=== PATIENT | female | born 1965 | race Caucasian/White ===

== ENCOUNTER 2019-04-12 09:44 | Emergency (ER) | payer BC ==
[2019-04-12] MEDS ORDERED: FAMOTIDINE 20 MG/2 ML VIAL IV ONE (10:18)
[2019-04-12] MEDS ORDERED: MORPHINE 4 MG/ML SYR ONE (10:18)
[2019-04-12] MEDS ORDERED: NA CHLORIDE 0.9% 1,000 ML ONE ×2 (10:18→12:02)
[2019-04-12] MEDS ORDERED: ONDANSETRON 4 MG/2 ML VIAL ONE (10:18)
[2019-04-12] MEDS ORDERED: MORPHINE 2 MG/ML SYR ONE (10:20)
[2019-04-12 10:30] LABS: Absolute Lymphocytes (CBC) 0.6 K/uL (0.7-4.9); Basophils % 0.4 % (0-1.3); Hematocrit 34.8 % (36.0-45.0); Lymphocytes % 6.1 % (15.3-44.8); MPV 8.2 fL (7.6-11.3); RBC Red Blood Cell Count 3.85 M/uL (3.86-4.86)
--- NOTE | 2019-04-12 10:35 | RAD REPORT ---
EXAM DESCRIPTION: Kristen Single View04/12/2019 10:07 am CLINICAL HISTORY: Colon cancer COMPARISON: 2014 FINDINGS: Multiple, bilateral pulmonary nodules The heart is normal size. Central venous line in place IMPRESSION: Multiple, bilateral pulmonary nodules probably metastases
[2019-04-12 10:45] LABS: ALT/SGPT 23 U/L (12-78); AST/SGOT 28 U/L (15-37); Albumin 3.5 g/dL (3.4-5.0); Alkaline Phosphatase 178 U/L (45-117); BUN Blood Urea Nitrogen 12 mg/dL (7-18); Bicarbonate 28 mmol/L (21-32); Bilirubin Direct < 0.1 mg/dL (0-0.2); Bilirubin Total 0.3 mg/dL (0.2-1.0); Glucose Level 128 mg/dL (74-106); Lipase 362 U/L (73-393); Magnesium 1.9 mg/dL (1.8-2.4); Potassium 4.2 mmol/L (3.5-5.1); Protein, Total 7.9 g/dL (6.4-8.2); Sodium Level 137 mmol/L (136-145)
[2019-04-12 11:03] LABS: Blood Morphology Comment NOT SEEN (NOT SEEN); Platelet Estimate ADEQ
--- NOTE | 2019-04-12 11:34 | RAD REPORT ---
EXAM DESCRIPTION: CT - Abdomen Pelvis W Contrast - 04/12/2019 11:11 am CLINICAL HISTORY: Abdominal pain. COMPARISON: 2014 TECHNIQUE: Computed axial tomography of the abdomen and pelvis was obtained. 100 cc Isovue-300 is ad ministered intravenously. Oral contrast was given. All CT scans are performed using dose optimization technique as appropriate and may include automated exposure control or mA/KV adjustment according to patient size. FINDINGS: Multiple, bilateral pulmonary nodules varying in size from a few millimeters to 24 millimeters 24 millimeter low to intermediate density lesion medial dome of the liver. Couple of additional subce ntimeter hepatic lesions. The portal vein is patent. The spleen, pancreas, adrenals and left kidney unremarkable. Percutaneous stent has been placed into the right kidney without hydronephrosis. Small left adrenal lesion 10 centimeter partially necrotic mass is present within the right pelvis abutting the uterus. There a re several surrounding enlarged lymph nodes. Of the mass obstructs the right ureter. The mass likely invades the uterus. . Portion of the mass abuts the cervix. Right hemicolectomy. No bowel obstruction. IMPRESSION: 10 centimeter pelvic mass obstructs the right ureter likely recurrent colonic neoplasm. There are enlarged lymph nodes, hepatic and pulmonary metastases
--- NOTE | 2019-04-12 12:16 | ER ---
Nurse's Notes [facility] Name: Selma Balderas Age: 53 yrs Sex: Female : 1965 Arrival Date: 04/12/2019 Time: 09:45 Bed 6 Private MD: Diagnosis: Nausea and vomiting Presentation: 04/12 09:45 Presenting complaint: EMS states: DIFFUSE ABDOMINAL PAIN WITH NAUSEA AND VOMITING SINCE bp LAST PM. Transition of care: patient was not received from another setting of care. Onset of symptoms is unknown. Risk Assessment: Do you want to hurt yourself or someone else? Patient reports no desire to harm self or others. Initial Sepsis Screen: Does the patient meet any 2 criteria? HR > 90 bpm. No. Patient's initial sepsis screen is negative. Does the patient have a suspected source of infection? Yes: Skin breakdown/wound. Care prior to arrival: Medication(s) given: Phenergan, 12.5 mg, TORADOL 30MG IM. 09:45 Method Of Arrival: EMS: [facility] bp 09:45 Acuity: DANIS 3 bp Triage Assessment: 09:48 General: Appears in no apparent distress. uncomfortable, Behavior is cooperative, bp appropriate for age, anxious. Pain: Complains of pain in abdomen. EENT: No deficits noted. Neuro: No deficits noted. Cardiovascular: Rhythm is sinus tachycardia. Respiratory: Airway is patent Respiratory effort is even, unlabored. GI: Abdomen is non-distended, Reports nausea, vomiting. : R FLANK RENAL DRAIN. Derm: No deficits noted. Musculoskeletal: No deficits noted. 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 - Social history:: Smoking status: Patient/guardian denies using tobacco. - Ebola Screening: : No symptoms or risks identified at this time. Screenin:50 Abuse screen: Denies threats or abuse. Denies injuries from another. Nutritional bp screening: No deficits noted. Tuberculosis screening: No symptoms or risk factors identified. Fall Risk None identified. Assessment: 09:50 General: SEE TRIAGE NOTE. 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 bp 12:07 Reassessment: PO CHALLENGE IN PROCESS. bp 12:33 Reassessment: D/C ON HOLD FOR IVF COMPLETION. bp 13:33 Reassessment: PT D/C HOME VIA W/C WITH FAMILY, DX WITH NAUSEA/VOMITING. PORT ACCESS bp LEFT IN PLACE FOR INFUSION THERAPY WITH PROVIDER APPROVAL. Vital Signs: 09:48 BP 116 / 78; Pulse 126; Resp 24; Temp 97.5; Pulse Ox 98% ; Weight 49.9 kg; Height 5 ft. bp 5 in. (165.10 cm); 10:26 BP 116 / 93; Pulse 117; Resp 20; Pulse Ox 95% ; bp 11:06 BP 106 / 55; Pulse 106; Resp 17; Pulse Ox 97% ; bp 11:55 BP 118 / 70; Pulse 107; Resp 16; Pulse Ox 97% ; bp 13:00 BP 120 / 61; Pulse 96; Resp 16; Pulse Ox 96% ; bp 13:35 BP 118 / 72; Pulse 98; Resp 16; Temp 97.5; Pulse Ox 97% ; bp 09:48 Body Mass Index 18.30 (49.90 kg, 165.10 cm) bp ED Course: 09:45 Patient arrived in ED. bp 09:45 Catrachito Mederos PA is PHCP. cp 09:45 Uday James MD is Attending Physician. cp 09:47 Triage completed. bp 09:48 Arm band placed on. bp 09:50 Patient has correct armband on for positive identification. Placed in gown. Bed in low bp position. Call light in reach. Side rails up X2. 09:53 Omid Castillo, KIRK is Primary Nurse. bp 10:06 XRAY Chest (1 view) In Process Unspecified. EDMS 10:10 Accessed Port-a-Cath. using accessed w/ #19 Ren needle, ,sterile technique, per hospital protocol. Clean \T\ dry. Dressing intact. Good blood return. Flushes easily. 11:12 CT Abd/Pelvis - IV Contrast Only In Process Unspecified. EDMS 13:00 Dressings: 4X4s X 1; right flank. bp 13:35 No provider procedures requiring assistance completed. PORT ACCESS IN PLACE FOR bp INFUSION AT ONCOLOGY. Administered Medications: 10:10 Drug: Zofran 4 mg Route: IVP; Site: Port-a-cath; bp 11:42 Follow up: Response: Nausea is decreased bp 10:10 Drug: Pepcid 20 mg Route: IVP; Site: Port-a-cath; bp 11:41 Follow up: Response: Nausea is decreased bp 10:10 Drug: NS 0.9% 1000 ml Route: IV; Rate: 1 bolus; Site: Port-a-cath; bp 13:37 Follow up: IV Status: Completed infusion bp 13:37 Follow up: IV Status: Completed infusion; IV Intake: 1000ml bp 10:10 Drug: morphine 2 mg Route: IVP; Site: Port-a-cath; bp 11:41 Follow up: Response: Pain is decreased bp 12:00 Drug: NS 0.9% 1000 ml Route: IV; Rate: 1 bolus; Site: Port-a-cath; bp 13:37 Follow up: IV Status: Completed infusion; IV Intake: 1000ml bp Intake: 13:37 IV: 1000ml; Total: 1000ml. bp 13:37 IV: 1000ml; Total: 2000ml. bp Outcome: 12:16 Discharge ordered by MD. cp 13:36 Discharged to home via wheelchair, with family. bp 13:36 Condition: stable 13:36 Discharge instructions given to patient, Instructed on discharge instructions, follow up and referral plans. medication usage, Demonstrated understanding of instructions, follow-up care, medications, Prescriptions given X 1. 13:38 Patient left the ED. bp Signatures: Dispatcher [employer] EDMS Catrachito Mederos PA PA cp Peltier, Brian, RN RN bp
--- NOTE | 2019-04-12 12:16 | EDPHYS ---
Physician Documentation [facility] Name: Selma Balderas Age: 53 yrs Sex: Female : 1965 Arrival Date: 04/12/2019 Time: 09:45 Bed 6 Private MD: ED Physician Uday James HPI: 04/12 09:53 This 53 yrs old Female presents to ER via EMS with complaints of Abdominal cp Pain, Nausea/Vomiting. 09:53 The patient presents with abdominal pain. Onset: The symptoms/episode began/occurred cp yesterday. Associated signs and symptoms: Pertinent positives: nausea and vomiting, Pertinent negatives: blood in stools, constipation, diarrhea, fever, vomiting blood. 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 - Social history:: Smoking status: Patient/guardian denies using tobacco. - Ebola Screening: : No symptoms or risks identified at this time. ROS: 09:54 Eyes: Negative for injury, pain, redness, and discharge. cp 09:54 Constitutional: Positive for poor PO intake, Negative for body aches, chills, fever. 09:54 Cardiovascular: Negative for chest pain. 09:54 Respiratory: Negative for cough, shortness of breath, wheezing. 09:54 Abdomen/GI: Positive for abdominal pain, nausea and vomiting, Negative for diarrhea, constipation, dysphagia, hematemesis, black/tarry stool, rectal bleeding. 09:54 Skin: Negative for rash. 09:54 Neuro: Negative for altered mental status, headache, weakness. 09:54 All other systems are negative. Exam: 10:00 Constitutional: The patient appears in no acute distress, alert, awake, non-toxic, well cp developed, well nourished, uncomfortable. 10:00 Head/Face: Normocephalic, atraumatic. cp 10:00 Eyes: Periorbital structures: appear normal, Conjunctiva: normal, no exudate, no cp injection, Sclera: no appreciated abnormality, Lids and lashes: appear normal, bilaterally. 10:00 ENT: External ear(s): are unremarkable, Nose: is normal, Mouth: Lips: dry, Oral mucosa: cp dry, Posterior pharynx: is normal, airway is patent, no erythema, no exudate. 10:00 Chest/axilla: Inspection: normal, Palpation: is normal, no crepitus, no tenderness. 10:00 Cardiovascular: Rate: tachycardic, Rhythm: regular, Edema: is not appreciated, JVD: is not appreciated. 10:00 Respiratory: the patient does not display signs of respiratory distress, Respirations: normal, no use of accessory muscles, no retractions, labored breathing, is not present, Breath sounds: are clear throughout, no decreased breath sounds, no stridor, no wheezing. 10:00 Abdomen/GI: Inspection: scar(s), are noted in the midline, Bowel sounds: active, all quadrants, Palpation: soft, in all quadrants, moderate abdominal tenderness, in the abdomen diffusely, rebound tenderness, is not appreciated, voluntary guarding, is elicited in all quadrants. 10:00 Back: pain, of the right mid back, right kidney nephrostomy tube noted. 10:00 Skin: no rash present. 10:00 Neuro: Orientation: to person, place \T\ time. Mentation: is normal, Motor: moves all fours, strength is normal. Vital Signs: 09:48 BP 116 / 78; Pulse 126; Resp 24; Temp 97.5; Pulse Ox 98% ; Weight 49.9 kg; Height 5 ft. bp 5 in. (165.10 cm); 10:26 BP 116 / 93; Pulse 117; Resp 20; Pulse Ox 95% ; bp 11:06 BP 106 / 55; Pulse 106; Resp 17; Pulse Ox 97% ; bp 11:55 BP 118 / 70; Pulse 107; Resp 16; Pulse Ox 97% ; bp 13:00 BP 120 / 61; Pulse 96; Resp 16; Pulse Ox 96% ; bp 13:35 BP 118 / 72; Pulse 98; Resp 16; Temp 97.5; Pulse Ox 97% ; bp 09:48 Body Mass Index 18.30 (49.90 kg, 165.10 cm) bp MDM: 09:50 Patient medically screened. cp 10:00 Differential diagnosis: bowel obstruction, cholecystitis, Cholelithiasis, gastritis, cp non-specific abd pain, pancreatitis, Ureterolithiasis, dehydration, sepsis. 12:14 Data reviewed: vital signs, nurses notes, lab test result(s), radiologic studies, CT cp scan. Counseling: I had a detailed discussion with the patient and/or guardian regarding: the historical points, exam findings, and any diagnostic results supporting the discharge/admit diagnosis, lab results, radiology results. Response to treatment: the patient's symptoms have markedly improved after treatment, Nausea and pain improved. Vomiting resolved. Patient observed tolerating po fluids and food. Will discharge to home for continued monitoring. 04/12 09:53 Order name: Basic Metabolic Panel; Complete Time: 10:56 cp 04/12 11:02 Interpretation: Normal except: GLUC 128; GFR 59. cp 04/12 09:53 Order name: CBC with Diff; Complete Time: 11:49 cp 04/12 10:33 Interpretation: Normal except: RBC 3.85; HGB 11.4; HCT 34.8; MCV 90.5; MCH 29.7; PLT cp 417; BHAVANI% 86.0; LYM% 6.1; NEUT A 8.6; LYMA 0.6. 04/12 09:53 Order name: Creatinine for Radiology; Complete Time: 10:56 cp 04/12 09:53 Order name: Hepatic Function; Complete Time: 10:56 cp 04/12 11:02 Interpretation: Normal except: ALK 178; GLOB 4.4; A/G 0.8. cp 04/12 09:53 Order name: Lipase; Complete Time: 10:56 cp 04/12 09:53 Order name: Magnesium; Complete Time: 10:56 cp 04/12 09:53 Order name: XRAY Chest (1 view); Complete Time: 10:56 cp 04/12 11:03 Interpretation: Report review. cp 04/12 09:53 Order name: CT Abd/Pelvis - IV Contrast Only; Complete Time: 11:49 cp 04/12 11:02 Order name: Manual Differential; Complete Time: 11:49 EDMS 04/12 11:49 Interpretation: Normal except: SEGS 84; LYM 7. cp 04/12 09:53 Order name: IV Saline Lock; Complete Time: 10:24 cp 04/12 09:53 Order name: Labs collected and sent; Complete Time: 10:24 cp 04/12 11:51 Order name: PO challenge; Complete Time: 12:13 cp Administered Medications: 10:10 Drug: Zofran 4 mg Route: IVP; Site: Port-a-cath; bp 11:42 Follow up: Response: Nausea is decreased bp 10:10 Drug: Pepcid 20 mg Route: IVP; Site: Port-a-cath; bp 11:41 Follow up: Response: Nausea is decreased bp 10:10 Drug: NS 0.9% 1000 ml Route: IV; Rate: 1 bolus; Site: Port-a-cath; bp 13:37 Follow up: IV Status: Completed infusion bp 13:37 Follow up: IV Status: Completed infusion; IV Intake: 1000ml bp 10:10 Drug: morphine 2 mg Route: IVP; Site: Port-a-cath; bp 11:41 Follow up: Response: Pain is decreased bp 12:00 Drug: NS 0.9% 1000 ml Route: IV; Rate: 1 bolus; Site: Port-a-cath; bp 13:37 Follow up: IV Status: Completed infusion; IV Intake: 1000ml bp Disposition: 13:53 Co-signature as Attending Physician, Uday James MD I agree with the assessment and kdr plan of care. Disposition: 04/12/19 12:16 Discharged to Home. Impression: Nausea and vomiting. - Condition is Stable. - Discharge Instructions: Clear Liquid Diet, Adult, Nausea and Vomiting, Adult. - Prescriptions for Zofran 4 mg Oral Tablet - take 1 tablet by ORAL route every 12 hours As needed; 20 tablet. - Medication Reconciliation Form, Thank You Letter, Antibiotic Education, Prescription Opioid Use form. - Follow up: Private Physician; When: 1 - 2 days; Reason: Recheck today's complaints. - Problem is new. - Symptoms have improved. Signatures: Dispatcher [employer] EDWV Uday James MD MD kdr Page, Corey, PA PA cp Omid Castillo, RN RN bp Corrections: (The following items were deleted from the chart) 13:38 12:16 04/12/2019 12:16 Discharged to Home. Impression: Nausea and vomiting. Condition bp is Stable. Forms are Medication Reconciliation Form, Thank You Letter, Antibiotic Education, Prescription Opioid Use. Follow up: Private Physician; When: 1 - 2 days; Reason: Recheck today's complaints. Problem is new. Symptoms have improved. cp
[2019-04-12 13:52] VITALS: TEMP 97.5
[2019-04-12 13:59] VITALS: BP 118/72; O2SAT 97
== END 2019-04-12 13:38 | disposition home or self-care (01) ==
LOC: ER 09:44
DX: R11.2 Nausea with vomiting, unspecified (principal); R10.9 Unspecified abdominal pain; Z85.038 Personal history of other malignant neoplasm of large intestine; Z85.118 Personal history of other malignant neoplasm of bronchus and lung; Z85.528 Personal history of other malignant neoplasm of kidney
CPT/HCPCS: 96361; 85025; 80048; 36415; 83735; 80076; 83690; 74177; 71045; 96375; 96374; 99285; Q9967; J2270; J7030 ×2; J2405

== ENCOUNTER 2019-04-15 16:58 | Emergency (ER) | payer BC ==
--- OUTSIDE RECORDS SUMMARY | 2019-04-15 17:00 | XMS REPORT ---
:1965 [facility] Address [address] [place] [address] Dr. Jaramillo. [address] [place] [id number] Care Team Providers Name Role Phone Unavailable Unavailable Unavailable Problems This patient has no known problems. Allergies, Adverse Reactions, Alerts This patient has no known allergies or adverse reactions. Medications This patient has no known medications.
[2019-04-15] MEDS ORDERED: NA CHLORIDE 0.9% 2,000 ML ONE (17:23)
[2019-04-15] MEDS ORDERED: MORPHINE 4 MG/ML SYR ONE ×2 (17:35→19:08)
[2019-04-15] MEDS ORDERED: ONDANSETRON 4 MG/2 ML VIAL ONE (17:35)
[2019-04-15 17:44] LABS: Absolute Lymphocytes (CBC) 0.8 K/uL (0.7-4.9); Basophils % 0.5 % (0-1.3); Hematocrit 31.7 % (36.0-45.0); Lymphocytes % 11.6 % (15.3-44.8); MPV 8.1 fL (7.6-11.3); RBC Red Blood Cell Count 3.53 M/uL (3.86-4.86)
[2019-04-15 17:52] LABS: Protime INR 1.16
[2019-04-15 18:09] LABS: ALT/SGPT 21 U/L (12-78); AST/SGOT 28 U/L (15-37); Albumin 2.9 g/dL (3.4-5.0); Alkaline Phosphatase 204 U/L (45-117); BUN Blood Urea Nitrogen 8 mg/dL (7-18); Bicarbonate 27 mmol/L (21-32); Bilirubin Direct < 0.1 mg/dL (0-0.2); Bilirubin Total 0.2 mg/dL (0.2-1.0); CKMB Creatine Kinase MB < 1.0 ng/mL (0.3-3.6); Creatine Phosphokinase 79 U/L (26-192); Glucose Level 107 mg/dL (74-106); Lipase 184 U/L (73-393); Potassium 3.5 mmol/L (3.5-5.1); Sodium Level 137 mmol/L (136-145); Troponin (Emerg Dept Use Only) < 0.02 ng/mL (0.0-0.045)
[2019-04-15] MEDS ORDERED: ACETAMINOPHEN 500 MG TAB ONE (18:26)
--- NOTE | 2019-04-15 18:59 | RAD REPORT ---
EXAM DESCRIPTION: CT - Abdomen Pelvis W Contrast - 04/15/2019 6:10 pm CLINICAL HISTORY: abdominal pain, vomiting, fever, history stage IV colon cancer COMPARISON: Abdomen Pelvis W Contrast dated 04/12/2019; CT ABD PELVIS W CONTRAST dated 09/16/2014 TECHNIQUE: Biphasic, helical CT imaging of the abdomen and pelvis was performed following 100 ml non -ionic IV contrast. No oral contrast given. All CT scans are performed using dose optimization technique as appropriate and may include automated exposure control or mA/KV adjustment according to patient size. FINDINGS: Multiple metastatic pulmonary nodules are present similar or appearing even slightly large r than the short interval April 12 study No new liver finding. Spleen and pancreas without acute finding as well. Gallbladder and biliary tree are also without suspicious finding. Gallstones can be occult on CT imaging. Renal function is symmetric. Percutaneous nephrostomy tube is present on the right. No left-sided hyd ronephrosis. No change in positioning of the drain tube. Mild enhancement seen in the right ureter. T his could be infectious/inflammatory change. Tumor invasion is possible. The mass obstructs and proba [place] invades the distal right ureter. No urinary bladder wall thickening. No pyelonephritis or acute p arenchymal process. No new adrenal finding. No new bowel finding seen. No free air or pneumatosis. Again noted is the large 10-12 centimeter partially necrotic mass in the pelvis. Multiple adjacent ly mph nodes are present. Periaortic lymph nodes are present as well. These findings are stable over the short interval. No new bone finding. IMPRESSION: The patient has enlarged 10-12 centimeter bulky partially necrotic pelvic mass along wit h intraperitoneal lymphadenopathy, metastatic lesions to the liver and metastatic lesions to the lung marsh. No bowel obstruction. No clearly new finding over the short interval since April 12. The enhancement of the right ureter i s probably related to tumor. Infection related right ureter enhancement is not excluded.
[2019-04-15] MEDS ORDERED: DIPHENHYDRAMINE 50 MG/ML VIAL ONE (19:07)
[2019-04-15] MEDS ORDERED: METOCLOPRAMIDE 10 MG/2mL INJ ONE (19:08)
--- NOTE | 2019-04-15 19:14 | RAD REPORT ---
EXAM DESCRIPTION: RAD - Chest Single View - 04/15/2019 6:05 pm CLINICAL HISTORY: Sepsis, metastatic colon carcinoma to the lungs COMPARISON: April 12 TECHNIQUE: AP portable chest image was obtained [id number] hours . FINDINGS: Multiple pulmonary nodules are present. Interstitial pattern is present. Findings are not substantially different from comparison. A slightly more shallow inspiration and under penetrated terri hnique accentuate the interstitial pattern. Mild interstitial edema or infiltrate could be masked. Right-sided Port-A-Cath in place. Trachea is midline. Heart and vasculature are normal. No measurable pleural effusion and no pneumothorax. No acute bony abnormality seen. No acute aortic findings suspe cted. IMPRESSION: Multiple pulmonary nodules similar to prior April 12 imaging. Chest is not substantiall y different.
[2019-04-15] MEDS ORDERED: CEFTRIAXONE/SWI 1gm 1 GM/10 ML SYR ONE (19:46)
[2019-04-15 19:57] LABS: Urine Bacteria <20 /HPF (<20); Urine Culture Reflex Order NOT NEEDED; Urine RBC <5 /HPF (NONE SEEN)
[2019-04-15 20:24] LABS: Urine Blood TRACE (NEG); Urine Glucose NEGATIVE (NEG); Urine Protein NEGATIVE (NEG); Urine Specific Gravity 1.015 (1.005-1.030); Urine pH 6.5 (5.0-7.0)
--- NOTE | 2019-04-15 22:15 | EDPHYS ---
Physician Documentation [facility] Name: Selma Balderas Age: 53 yrs Sex: Female : 1965 Arrival Date: 04/15/2019 Time: 16:59 Bed 20 Private MD: ED Physician Collin Louise HPI: 04/15 18:08 This 53 yrs old Female presents to ER via Ambulatory with complaints of jmm Vomiting, Fever, Weakness. 18:08 The patient presents to the emergency department with nausea, vomiting, abdominal pain. jmm Onset: The symptoms/episode began/occurred acutely, 2 day(s) ago. Possible causes: unknown. The symptoms are aggravated by nothing. This is a 53 year old female that presents to the ED with complaints of epigastric abdominal pain, vomiting beginning 2 days ago. Symptoms have now worsened with fever. . 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 - Social history:: Smoking status: Patient/guardian denies using tobacco. - Ebola Screening: : Patient denies exposure to infectious person Patient denies travel to an Ebola-affected area in the 21 days before illness onset. ROS: 18:08 Constitutional: Positive for fever. jmm 18:08 Abdomen/GI: Positive for abdominal pain, nausea and vomiting, Negative for diarrhea. 18:08 All other systems are negative. Exam: 18:08 Constitutional: This is a well developed, well nourished patient who is awake, alert, jmm and in no acute distress. Head/Face: atraumatic. Eyes: EOMI, no conjunctival erythema appreciated ENT: Moist Mucus Membranes Neck: Trachea midline, Supple Chest/axilla: Normal chest wall appearance and motion. Cardiovascular: Regular rate and rhythm. No edema appreciated Respiratory: Normal respirations, no respiratory distress appreciated Abdomen/GI: Non distended, soft Back: Normal ROM Skin: General appearance color normal MS/ Extremity: Moves all extremities, no obvious deformities appreciated, no edema noted to the lower extremities Neuro: Awake and alert, normal gait 18:08 Psych: Behavior is normal, Mood is normal, Patient is cooperative and pleasant 18:08 Abdomen/GI: Inspection: abdomen appears normal, Bowel sounds: normal, Palpation: soft, moderate abdominal tenderness, in the right upper quadrant and left upper quadrant. Vital Signs: 17:10 Weight 55.79 kg (R); Height 5 ft. 5 in. (165.10 cm) (R); rb1 17:21 BP 154 / 94; Pulse 108; Resp 27; Temp 101.5(O); Pain 8/10; ss 18:36 BP 142 / 74; Pulse 98; Resp 12; Temp 100.3(O); Pulse Ox 99% on R/A; mh5 19:30 BP 132 / 61; Pulse 101; Resp 14; Pulse Ox 95% ; wh 20:30 BP 117 / 60; Pulse 85; Resp 17; Pulse Ox 95% on R/A; wh 21:56 BP 115 / 69; Pulse 84; Resp 16; Pulse Ox 95% on R/A; wh 22:44 BP 113 / 60; Pulse 90; Resp 18; Temp 98.8; Pulse Ox 95% on R/A; wh 17:10 Body Mass Index 20.47 (55.79 kg, 165.10 cm) rb1 MDM: 17:24 Patient medically screened. [facility] 22:12 Data reviewed: vital signs, nurses notes. Counseling: I had a detailed discussion with [facility] the patient and/or guardian regarding: the historical points, exam findings, and any diagnostic results supporting the discharge/admit diagnosis, lab results, radiology results, the need for outpatient follow up, to return to the emergency department if symptoms worsen or persist or if there are any questions or concerns that arise at home. ED course: I discussed the patient with Dr. Norman whom will follow up with the patient. Patient is able to tolerate fluids in the ED. Imaging studies negative for an acute process. Patient advised to follow up with pcp or dr norman. Patient otherwise given strict return precautions. Patient understood and agrees with the plan of care. . 04/15 17:16 Order name: Basic Metabolic Panel 04/15 17:16 Order name: Blood Culture Adult (2) 04/15 17:16 Order name: CBC with Diff; Complete Time: 17:51 04/15 17:16 Order name: Ckmb; Complete Time: 18:13 04/15 17:16 Order name: CPK; Complete Time: 18:13 04/15 17:16 Order name: Lactate; Complete Time: 18:13 04/15 17:16 Order name: LFT's; Complete Time: 18:13 04/15 17:16 Order name: Lipase; Complete Time: 18:13 04/15 17:16 Order name: Procalcitonin; Complete Time: 18:32 04/15 17:16 Order name: Protime (+inr); Complete Time: 18:06 04/15 17:16 Order name: Ptt, Activated; Complete Time: 18:06 04/15 17:16 Order name: Troponin (emerg Dept Use Only); Complete Time: 18:13 04/15 17:16 Order name: Urine Microscopic Only; Complete Time: 19:59 04/15 17:16 Order name: Basic Metabolic Panel; Complete Time: 18:13 [facility] 04/15 17:16 Order name: Chest Single View XRAY; Complete Time: 19:21 04/15 17:16 Order name: Accucheck; Complete Time: 17:46 04/15 17:26 Order name: Flu; Complete Time: 19:14 [facility] 04/15 17:26 Order name: CT Abd/Pelvis - IV Contrast Only; Complete Time: 19:14 [facility] 04/15 17:49 Order name: Glucose, Ancillary Testing; Complete Time: 17:51 [facility] 04/15 19:50 Order name: Urine Dipstick--Ancillary (enter results); Complete Time: 20:27 [facility] 04/15 19:50 Order name: Urine --Ancillary (enter results); Complete Time: 20:27 [facility] 04/15 17:16 Order name: Cardiac monitoring; Complete Time: 17:46 04/15 17:16 Order name: EKG - Nurse/Tech; Complete Time: 18:42 04/15 17:16 Order name: IV Saline Lock - Large Bore; Complete Time: 17:46 04/15 17:16 Order name: Labs collected and sent; Complete Time: 17:46 04/15 17:16 Order name: O2 Per Protocol; Complete Time: 17:23 04/15 17:16 Order name: O2 Sat Monitoring; Complete Time: 17:22 04/15 17:16 Order name: Urine Dipstick-Ancillary (obtain specimen); Complete Time: 19:57 04/15 19:16 Order name: Straight Cath - Urine; Complete Time: 19:46 [facility] 04/15 19:59 Order name: PO challenge; Complete Time: 20:25 [facility] Administered Medications: 17:43 Drug: Zofran 4 mg Route: IVP; Site: Port-a-cath; mg2 19:17 Follow up: Response: No adverse reaction rb1 17:44 Drug: morphine 4 mg Route: IVP; Site: Port-a-cath; mg2 19:17 Follow up: Response: No adverse reaction; RASS: Alert and Calm (0) rb1 17:45 Drug: NS 0.9% (30 ml/kg) 30 ml/kg Route: IV; Rate: bolus; Site: Port-a-cath; mg2 19:56 Follow up: Response: No adverse reaction; IV Status: Completed infusion wh 18:26 Drug: Tylenol 1000 mg Route: PO; rb1 18:26 Follow up: Delay in administering the Tylenol due to the pt. vomiting. Waited for the rb1 Zofran to take effect. 19:57 Follow up: Response: No adverse reaction; Temperature is decreased wh 19:13 Drug: morphine 4 mg Route: IVP; Site: Port-a-cath; rb1 19:56 Follow up: Response: No adverse reaction; Pain is decreased; RASS: Alert and Calm (0) 19:15 Drug: Benadryl 12.5 mg Route: IVP; Site: Port-a-cath; rb1 19:55 Follow up: Response: No adverse reaction wh 19:17 Drug: Reglan 10 mg Route: IVP; Site: Port-a-cath; rb1 19:55 Follow up: Response: No adverse reaction; Nausea is decreased wh 19:46 Drug: Rocephin 1 grams Route: IV; Rate: calculated rate; Site: Port-a-cath; wh 22:40 Drug: HEParin Flush 500 units Route: IVP; Site: Port-a-cath; wh 22:41 Follow up: Response: No adverse reaction Disposition: 04/16 07:20 Co-signature as Attending Physician, Collin Louise MD. rn Disposition: 04/15/19 22:15 Discharged to Home. Impression: Vomiting. - Condition is Stable. - Discharge Instructions: Nausea and Vomiting, Adult. - Prescriptions for Zofran ODT 4 mg Oral tablet,disintegrating - place 1 tablet by TRANSLINGUAL route every 4-6 hours; 20 tablet. - Medication Reconciliation Form, Thank You Letter, Antibiotic Education, Prescription Opioid Use form. - Follow up: Private Physician; When: 2 - 3 days; Reason: Recheck today's complaints, Continuance of care, Re-evaluation by your physician. Signatures: Dispatcher [employer] EDMS Negrito Ricketts PA PA jmm Nieto, Roman, MD MD rn Smirch, Shelby, RN RN Selena Smith RN RN [facility] Rossana Lainez Yovani Martínez RN RN [facility] [place] Corrections: (The following items were deleted from the chart) 04/15 22:43 22:15 04/15/2019 22:15 Discharged to Home. Impression: Vomiting. Condition is Stable. wh Forms are Medication Reconciliation Form, Thank You Letter, Antibiotic Education, Prescription Opioid Use. Follow up: Private Physician; When: 2 - 3 days; Reason: Recheck today's complaints, Continuance of care, Re-evaluation by your physician. lesa
--- NOTE | 2019-04-15 22:15 | ER ---
Nurse's Notes [facility] Name: Selma Balderas Age: 53 yrs Sex: Female : 1965 Arrival Date: 04/15/2019 Time: 16:59 Bed 20 Private MD: Diagnosis: Vomiting Presentation: 04/15 17:10 Initial Sepsis Screen: Does the patient have a suspected source of infection? Yes: rb1 Other: Cancer history with fever. 17:16 Presenting complaint: Patient states: Not feeling well since yesterday. N/V and fever ss that began today. Pt has a history of Stage IV colon CA. Is waiting to have second iron infusion prior to beginning chemotherapy. Transition of care: patient was not received from another setting of care. Onset of symptoms was April 14, 2019. Risk Assessment: Do you want to hurt yourself or someone else? Patient reports no desire to harm self or others. Initial Sepsis Screen: Does the patient meet any 2 criteria? RR > 20 per min. Temp <36.0*C (96.8*F)) or > 38.3*C (100.9*F). HR > 90 bpm. Initial Sepsis Screen: Does the patient meet any 2 criteria?. Care prior to arrival: None. 17:16 Method Of Arrival: Ambulatory ss 17:16 Acuity: DANIS 2 ss Triage Assessment: 19:15 Pain: Complains of pain in abdomen Pain does not radiate. Pain currently is 5 out of 10 wh on a pain scale. GI: Abdomen is flat, non-distended, Bowel sounds present X 4 quads. Abd is soft and non tender X 4 quads. 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 - Social history:: Smoking status: Patient/guardian denies using tobacco. - Ebola Screening: : Patient denies exposure to infectious person Patient denies travel to an Ebola-affected area in the 21 days before illness onset. Screenin:10 Abuse screen: Denies threats or abuse. Nutritional screening: No deficits noted. rb1 Tuberculosis screening: No symptoms or risk factors identified. Fall Risk None identified. Assessment: 17:10 General: Appears uncomfortable, Behavior is calm, cooperative, Reports fever for rb1 feeling ill for 1-2 days. Neuro: Level of Consciousness is awake, alert, obeys commands, Oriented to person, place, time, situation. Cardiovascular: Capillary refill < 3 seconds is brisk in bilateral fingers. Respiratory: Airway is patent Respiratory effort is even, unlabored, Respiratory pattern is regular, symmetrical. GI: Abdomen is non-distended, Reports nausea, vomiting, since today. : No signs and/or symptoms were reported regarding the genitourinary system. Derm: Skin is pink, warm \T\ dry. 18:00 Reassessment: Pt. is off the unit for testing. [facility] 18:24 Reassessment: Tried to call lab to come and draw the second cultures but it went to the [facility] outside lab. 18:33 Reassessment: Patient appears in no apparent distress at this time. Patient and/or [facility] family updated on plan of care and expected duration. Pain level reassessed. Patient is alert, oriented x 3, equal unlabored respirations, skin warm/dry/pink. 18:48 Reassessment: Lab is at the pt. bedside to obtain the second set of cultures due to the [facility] pt. being a hard stick. 19:15 Reassessment: Patient appears in no apparent distress at this time. Patient and/or family updated on plan of care and expected duration. Pain level reassessed. Patient is alert, oriented x 3, equal unlabored respirations, skin warm/dry/pink. 20:40 Reassessment: Patient appears in no apparent distress at this time. No changes from previously documented assessment. Patient and/or family updated on plan of care and expected duration. Pain level reassessed. Patient is alert, oriented x 3, equal unlabored respirations, skin warm/dry/pink. Patient states feeling better. Patient states symptoms have improved. 21:56 Reassessment: Patient appears in no apparent distress at this time. No changes from previously documented assessment. Patient and/or family updated on plan of care and expected duration. Pain level reassessed. Patient is alert, oriented x 3, equal unlabored respirations, skin warm/dry/pink. Patient states feeling better. Patient states symptoms have improved. 22:43 Reassessment: Patient appears in no apparent distress at this time. No changes from previously documented assessment. Patient and/or family updated on plan of care and expected duration. Pain level reassessed. Patient is alert, oriented x 3, equal unlabored respirations, skin warm/dry/pink. Patient states feeling better. Patient states symptoms have improved. Vital Signs: 17:10 Weight 55.79 kg (R); Height 5 ft. 5 in. (165.10 cm) (R); rb1 17:21 BP 154 / 94; Pulse 108; Resp 27; Temp 101.5(O); Pain 8/10; ss 18:36 BP 142 / 74; Pulse 98; Resp 12; Temp 100.3(O); Pulse Ox 99% on R/A; mh5 19:30 BP 132 / 61; Pulse 101; Resp 14; Pulse Ox 95% ; wh 20:30 BP 117 / 60; Pulse 85; Resp 17; Pulse Ox 95% on R/A; wh 21:56 BP 115 / 69; Pulse 84; Resp 16; Pulse Ox 95% on R/A; wh 22:44 BP 113 / 60; Pulse 90; Resp 18; Temp 98.8; Pulse Ox 95% on R/A; wh 17:10 Body Mass Index 20.47 (55.79 kg, 165.10 cm) rb1 ED Course: 16:59 Patient arrived in ED. as 17:12 eNgrito iRcketts PA is PHCP. m 17:12 Collin Louise MD is Attending Physician. jmm 17:14 Patient has correct armband on for positive identification. Placed in gown. Bed in low mh5 position. Call light in reach. Side rails up X 1. Adult w/ patient. Pulse ox on. NIBP on. 17:21 Triage completed. ss 17:21 Arm band placed on right wrist. EKG completed in triage. Results shown to MD. ss 17:30 Accessed Port-a-Cath. using accessed w/ # 20 Ren needle, 20G Nexia IV catheter mg2 ,sterile technique, per hospital protocol. Clean \T\ dry. Dressing intact. Good blood return. Flushes easily. 18:05 Chest Single View XRAY In Process Unspecified. EDMS 18:05 Selena Smith, RN is Primary Nurse. rb1 18:10 CT completed. Patient tolerated procedure well. Patient moved back from CT. mw3 18:10 CT Abd/Pelvis - IV Contrast Only In Process Unspecified. EDMS 18:26 Flu Sent. rb1 18:35 EKG done, by ED staff, reviewed by Collin Louise MD. 5 19:15 Patient has correct armband on for positive identification. Placed in gown. Bed in low wh position. Call light in reach. Side rails up X 1. 22:41 No provider procedures requiring assistance completed. IV discontinued, intact, wh bleeding controlled, No redness/swelling at site. Administered Medications: 17:43 Drug: Zofran 4 mg Route: IVP; Site: Port-a-cath; mg2 19:17 Follow up: Response: No adverse reaction rb1 17:44 Drug: morphine 4 mg Route: IVP; Site: Port-a-cath; mg2 19:17 Follow up: Response: No adverse reaction; RASS: Alert and Calm (0) rb1 17:45 Drug: NS 0.9% (30 ml/kg) 30 ml/kg Route: IV; Rate: bolus; Site: Port-a-cath; mg2 19:56 Follow up: Response: No adverse reaction; IV Status: Completed infusion wh 18:26 Drug: Tylenol 1000 mg Route: PO; rb1 18:26 Follow up: Delay in administering the Tylenol due to the pt. vomiting. Waited for the rb1 Zofran to take effect. 19:57 Follow up: Response: No adverse reaction; Temperature is decreased wh 19:13 Drug: morphine 4 mg Route: IVP; Site: Port-a-cath; rb1 19:56 Follow up: Response: No adverse reaction; Pain is decreased; RASS: Alert and Calm (0) wh 19:15 Drug: Benadryl 12.5 mg Route: IVP; Site: Port-a-cath; rb1 19:55 Follow up: Response: No adverse reaction wh 19:17 Drug: Reglan 10 mg Route: IVP; Site: Port-a-cath; rb1 19:55 Follow up: Response: No adverse reaction; Nausea is decreased wh 19:46 Drug: Rocephin 1 grams Route: IV; Rate: calculated rate; Site: Port-a-cath; wh 22:40 Drug: HEParin Flush 500 units Route: IVP; Site: Port-a-cath; wh 22:41 Follow up: Response: No adverse reaction wh Intake: Outcome: 22:15 Discharge ordered by . lesa 22:41 Discharged to home via wheelchair, with family. 22:41 Discharged to home via wheelchair, with family. 22:41 Condition: stable 22:41 Condition: stable 22:41 Discharge instructions given to patient, family, Instructed on discharge instructions, follow up and referral plans. medication usage, POC Demonstrated understanding of instructions, follow-up care, medications, POC Prescriptions given X 1. 22:43 Patient left the ED. Signatures: Dispatcher [employer] EDMS Negrito Ricketts PA PA jmm Martinez, Amelia as Smirch, Shelby, RN RN Selena Smith, RN RN rb1 Jenniffer Wilkerson [facility] Rossana Lainez Yovani Martínez, RN RN mg2 Jodi Hyatt mw3 Corrections: (The following items were deleted from the chart) 18:40 17:46 Accessed Port-a-Cath. using accessed w/ # 20 Ren needle, 20G Nexia IV catheter mg2 ,sterile technique, per hospital protocol. Clean \T\ dry. Dressing intact. Good blood return. Flushes easily. mg2 22:45 22:44 BP 113 / 60; Pulse 90bpm; Resp 18bpm; Pulse Ox 95%; [facility]
[2019-04-15] MEDS ORDERED: HEPARIN 500 UNIT/5 ML SYR IV ONE (22:26)
[2019-04-15 23:05] VITALS: O2SAT 95
[2019-04-15 23:06] VITALS: TEMP 100.3
[2019-04-15 23:10] VITALS: BP 113/60
--- NOTE | 2019-04-17 05:30 | EKG ---
Test Date: 2019-04-15 Test Time: 18:29:11 Director Of Valuation: DIETER MEASUREMENT RESULTS: Intervals: Rate: 97 WA: 138 QRSD: 78 QT: 348 QTc: 441 Mascot: P: 65 WA: 138 QRS: 38 T: 38 INTERPRETIVE STATEMENTS: Normal sinus rhythm Normal ECG Compared to ECG 01/16/2014 10:23:52 No significant changes Electronically Signed On 04-17-19 05:29:28 RADIOLOGIST CHIEF OF BREAST IMAGING by Surjit Tuttle
== END 2019-04-15 22:43 | disposition home or self-care (01) ==
LOC: ER 16:58
DX: R11.2 Nausea with vomiting, unspecified (principal); Z85.41 Personal history of malignant neoplasm of cervix uteri; Z85.118 Personal history of other malignant neoplasm of bronchus and lung; Z85.528 Personal history of other malignant neoplasm of kidney
CPT/HCPCS: 96365; 93005; 87040 ×2; 85025; 80048; 36415; 82550; 81025; 85610; 82947; 80076; 83605; 85730; 84484; 82553; 83690; 84145; 87804 ×2; 74177; 71045; 96375; 99285; 96366; Q9967; J2765; J1200; J1642; J0696; J7030; J2405; 81003; 81015

== ENCOUNTER 2019-05-28 12:24 | Emergency (ER) | payer BC ==
--- OUTSIDE RECORDS SUMMARY | 2019-05-28 12:27 | XMS REPORT ---
:1965 [facility] [address] [place] [address] Dr. Chavis [address] [place] [id number] Care Team Providers Name Role Phone JAIME NISHILOUIS Pavel Unavailable Unavailable Problems This patient has no known problems. Allergies, Adverse Reactions, Alerts This patient has no known allergies or adverse reactions. Medications This patient has no known medications. Results Test Description Test Time Test Comments Text Results Atomic Results Result Comments TISSUE EXAM 2019-04-24 12:26:00 Surgical Pathology Report Case: [id number] Authorizing Provider: Dav Bernard MD Collected: 09/25/2014 1329 Ordering Location: [facility] Received: 09/25/2014 1518 SERVICES Pathologist: Jeanie Rg MD Specimen: Large Intestine, Colon - Right/Ascending, RIGHT COLON AND SMALL BOWEL The addendum is being issued to report the results of PDL1 testing and KRAS and NRAS testing by [facility].Please see scanned report for results.Addendum electronically signed by Sergio Bustillos MD on 04/24/2019 at 12:26 PMThe addendum is being issued to report the results of immunohistochemistry (IHC) testing for Mismatch Repair (MMR) Proteins, which has been performed on the colon cancer at the request of the oncologist, Dr Larson.The diagnosis remains unchanged.IHC testing for all four MMR proteins was performed on selected block A4 with appropriate controls.RESULTSMLH1: Intact nuclear expressionMSH2: Intact nuclear expressionMSH6: Intact nuclear expressionPMS2: Intact nuclear expressionIHC InterpretationNo loss of nuclear expression of MMR proteins: low probability of microsatellite instability-high (MSI-H)# #There are exceptions to the above IHC interpretations. These results should not be considered in isolation, and clinical correlation with genetic counseling is recommended to assess the need for germline testing.Immunohistochemistry disclaimer:The immunohistochemistry test was developed and its performance characteristics determined by [facility], Pathology Laboratory. It has not been cleared or approved by the U.S. Food and Drug Administration. The FDA has determined that such clearance or approval is not necessary. The test is used for clinical purposes. It should not be regarded as investigational or for research. This laboratory is certified under the Clinical Laboratory Improvement Amendments of 1988 (CLIA-88) as qualified to perform high complexity clinical laboratory testing.[id number] electronically signed by Sergio Bustillos MD on 10/05/2016 at 6:20 PMRIGHT/ASCENDING COLON, PORTION OF SMALL BOWEL, EXCISION: COLON: ADENOCARCINOMA WITH INFILTRATION INTO PERICOLONIC ADIPOSE TISSUE METASTATIC CARCINOMA IN ONE OF TWENTY-ONE LYMPH NODES (04/25) EXCISION MARGINS: NEGATIVE FOR CARCINOMA PORTION OF SMALL BOWEL: INTRAMURAL ABSCESS, ORGANIZING FIBROSIS AND SEROSAL FIBROUS ADHESIONS NEGATIVE FOR CARCINOMA SEE DETAILS BELOW The separate portion of small bowel shows intramural abscess and organizing fibrosis, possibly representing an area of perforation. Carcinoma is not identified. Clinical correlation is necessary.COLON AND RECTUM: Resection, Including Transanal Disk Excision of Rectal Neoplasms (Colon Res - All Specimens)SPECIMEN Procedure: Right hemicolectomy Macroscopic Tumor Perforation: Not identifiedTUMOR Histologic Type: Adenocarcinoma Histologic Grade: Low-grade (well differentiated to moderately differentiated) Histologic Features Suggestive of Microsatellite Instability: Intratumoral Lymphocytic Response (tumor-infiltrating lymphocytes): None Peritumor Lymphocytic Response (Crohn-like response): NoneTumor Extent Tumor Size: Greatest dimension in Centimeters (cm): 4 cm Additional Dimension in Centimeters (cm): 3.4 cm Additional Dimension in Centimeters (cm): 1 cm Microscopic Tumor Extension: Tumor invades through the muscularis propria into the subserosal adipose tissue or the nonperitonealized pericolic or perirectal soft tissues but does not extend to the serosal surfaceMARGINS Proximal Margin: Uninvolved by invasive carcinoma Distal Margin: Uninvolved by invasive carcinomaAccessory Findings Lymphovascular Invasion: Present Perineural Invasion: Cannot be determined: Tumor is adjacent to peripheral nerves but not circumferentially surrounding them Tumor Deposits: Not identifiedPATHOLOGIC STAGE CLASSIFICATION (pTNM) Primary Tumor (pT): pT3: Tumor invades through the muscularis propria into pericolorectal tissues Regional Lymph Nodes (pN): pN1a: Metastasis in 1 regional lymph node Number of Lymph Nodes Examined: Specify number: 21 Number of Lymph Nodes Involved: Specify number: 1 Distant Metastasis (pM): Not applicable - pM cannot be determined from the submitted specimen(s)[id number], [id number], [id number] x5, [id number] cancerRight colon and small bowelSpecimen is received in a formalin-filled container labeled with the patient's information and "right colon and small bowel." It consists of a right hemicolectomy and a portion of small bowel. The hemicolectomy has the following components: colon (23 cm length, 6.9 cm circumference), terminal ileum (2 cm length, 2.6 cm circumference), unremarkable appendix (7 cm length, 0.5 cm diameter). A separate, detached portion of small bowel (30 cm length, 4.3 cm circumference) is also present. Its ends are adhesed to one another. The right colon contains a centrally ulcerated mass with heaped up borders (4 x 3.4 x 1 cm) located 6.6 cm from the distal margin and 9.6 cm from the proximal margin. The mass involves the underlying colon wall. There are no additional lesions. The small bowel has no distinct mass lesions. Dissection of adipose tissue reveals multiple lymph nodes (0.2 to 1.5 cm in greatest dimension).Ink code: black-serosa underlying massSection code: A1, hemicolectomy resection margins en face; A2, appendix; A3, margins from detached small bowel en face; A4-A8, full-thickness sections of colon mass; A9, two entire lymph nodes; A10, two lymph nodes bisected (one inked blue); A11, one lymph node trisected; A12, one lymph node trisected (grossly positive lymph node adjacent to mass); A13, six entire lymph nodes; A14, six entire possible lymph nodes; A15, one lymph node trisected; A16-A22, small bowel wall. CG/ew, DB/plImmunohistochemical stains of a focus of atypical cells in serosa of the separate segment of small bowel are as follows: Positive: ck5/6 Negative: MOC31, calretinin, p40 CD31, D2-40 highlight lymphovascular spacesThe above mentioned focus is consistent with reactive mesothelial cells.The focus of metastatic carcinoma in a pericolonic lymph nodes measures 1.4 cm. Extracapsular extension is not identified. The tumor is ulcerated and associated with abscess. It is at 0.15 cm from the serosal surface.The following special studies were performed on this case and the interpretation is incorporated in the diagnostic report above:Block A22 Immunohistochemical stains: MOC31, calretinin, ck5/6, p40, CD31, D2-40The immunohistochemistry test was developed and its performance characteristics determined by [facility], Pathology Laboratory. It has not been cleared or approved by the U.S. Food and Drug Administration. The FDA has determined that such clearance or approval is not necessary. The test is used for clinical purposes. It should not be regarded as investigational or for research. This laboratory is certified under the Clinical Laboratory Improvement Amendments of 1988 (CLIA-88) as qualified to perform high complexity clinical laboratory testing.
--- OUTSIDE RECORDS SUMMARY | 2019-05-28 12:31 | XMS REPORT | Summary of Care ---
:1965 Author Organization [facility] Address [address] [place] [id number] Care Team Providers Name Role Phone Willian Loo MD Primary Care Provider Reason for Referral Other (Routine) Status Reason Specialty Diagnoses / Referred By Referred To Procedures Contact Contact New Request Diagnoses Complicated UTI (urinary tract infection) Andrew Gomez MD Cai, Qiangjun, MD Procedures Discharge Follow-up: Specialty Provider ELIZA SEGOVIA; 4-6 Weeks [address] [address] [address] Phone: [place] [address] Phone: Other (Routine) Status Reason Specialty Diagnoses / Referred By Referred To Contact Procedures Contact New Request Diagnoses Complicated UTI (urinary tract infection) Andrew Gomez MD Alzweri, Laith, MD Procedures Discharge Follow-up: Specialty Provider ELLEN GODDARD; 1 Week [address] [address] [place], [place] Phone: [phone] (Routine) Status Reason Specialty Diagnoses / Referred By Referred To Procedures Contact Contact New Request Diagnoses Complicated UTI (urinary tract infection) Andrew Gomez MD Edemekong, Peter, Procedures Discharge Follow-up: PCP WILLIAN LOO; 2 Weeks [address] [facility] [address] [address] Phone: [place] [address] Phone: Other (Routine) Status Reason Specialty Diagnoses / Referred By Referred To Procedures Contact Contact New Request Diagnoses Complicated UTI (urinary tract infection) Andrew Gomez MD Dhodapkar, Anupama Procedures Discharge Follow-up: Specialty Provider ANGELITA SOTO; 1 Week 301 [place], [place] [address] [address] [place], [place] Phone: [phone] Phone: MRI/CAT Scan (STAT) Status Reason Specialty Diagnoses / Referred By Referred To Procedures Contact Contact New Request Diagnostic Diagnoses Shortness of breath Uday Ivey, Radiology Procedures CT CHEST PULMONARY ANGIOGRAM CT THORAX W CONTRAST ADULT MINISTRIES DIRECTOR[address] [address] MRI/CAT Scan (STAT) Status Reason Specialty Diagnoses / Referred By Referred To Procedures Contact Contact New Request Diagnostic Diagnoses Fever, unspecified fever cause Intractable vomiting with nausea, unspecified vomiting type Generalized abdominal pain Dehydration Uday Ivey, Radiology Procedures CT ABDOMEN PELVIS W CONTRAST ADULT MINISTRIES DIRECTOR [address] [place] [address] Radiology Services (STAT) Status Reason Specialty Diagnoses / Referred By Referred To Procedures Contact Contact New Request Diagnostic Diagnoses Fever, unspecified fever cause Intractable vomiting with nausea, unspecified vomiting type Generalized abdominal pain Dehydration Uday Ivey, Radiology Procedures XR CHEST 1 VW XR CHEST 2 VW ADULT MINISTRIES DIRECTOR [address] [place] [address] Reason for Visit Reason Comments Vomiting Auth/Cert Status Reason Specialty Diagnoses / Referred By Referred To Procedures Contact Contact Emergency Medicine [facility] Emergency Dept [address] [place] [address] [place] [address] Encounter Details Date Type Department Care Team Description 04/16/2019 - [facility] Medicine Uday Ivey FNP [address] [place] [address] Complicated UTI 04/21/2019 Encounter Surgery Unit Bao Carranza MD [address] [place] [address]. [address] [place], [place] [id number] (urinary tract 132 [facility] infection) [place] [address] Allergies Active Allergy Reactions Severity Noted Date Comments Oxaliplatin Anaphylaxis High 03/17/2019 documented as of this encounter (statuses as of 04/21/2019) Medications Medication Sig Dispensed Refills Start Date End Date Status atorvastatin 40 mg Take 1 tablet 90 tablet 3 02/20/2019 Active tabletIndications: by mouth at Mixed hyperlipidemia bedtime. famotidine 20 mg Take 1 tablet 60 tablet 3 03/20/2019 Active tabletIndications: by mouth 2 Intraabdominal mass, (two) times History of colon daily. cancer, Hydronephrosis, unspecified hydronephrosis type lisinopril 10 mg Take 1 tablet 30 tablet 3 03/21/2019 Active tabletIndications: by mouth Intraabdominal mass, daily. History of colon cancer, Hydronephrosis, unspecified hydronephrosis type morphine ER 15 mg 12 Take 1 tablet 90 tablet 0 04/07/2019 Active hr by mouth every tabletIndications: 12 (twelve) Intraabdominal mass, hours. 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 ondansetron 4 mg/5 Take 5 mL by 150 mL 0 04/21/2019 Active mL mouth every 8 solutionIndications: (eight) hours Malignant neoplasm as needed for of colon, Nausea and unspecified part of Vomiting colon (N/V). amoxicillin-clavulan Take 1 tablet 10 tablet 0 04/21/2019 Active ate (AUGMENTIN) by mouth 2 0 875-125 mg per (two) times tabletIndications: daily for 5 Complicated UTI days. (urinary tract infection) acetaminophen-codein Take 1 tablet 120 tablet 0 04/07/2019 Discontinued e 300-30 mg by mouth every 0 tabletIndications: 6 (six) hours Intraabdominal mass, as needed for Hydronephrosis, Pain (scale unspecified 7-10) (cancer hydronephrosis type, related pain). 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 to 2018 intra-abdominal lymph node Mixed hyperlipidemia 02/20/2019 Abnormal liver enzymes 02/20/2019 Menopausal state 02/12/2019 Irritability and anger 02/12/2019 Reactive depression 02/12/2019 Blood pressure elevated without history of HTN 02/12/2019 Encounter to establish care with new doctor 02/12/2019 Need for pneumococcal vaccination 02/12/2019 Malignant tumor of colon 09/21/2014 documented as of this encounter (statuses as of 04/21/2019) Immunizations Name Administration Dates Next Due Pneumococcal Polysaccharide, PPSV23 (PNEUMOVAX) 02/10/2019 documented as of this encounter Social History Tobacco Use Types Packs/Day Years Used Date Never Smoker Smokeless Tobacco: Never Used Alcohol Use Drinks/Week oz/Week Comments Yes Alcohol Habits Answer Date Recorded How often do you have a drink containing alcohol? 2-4 times a month 2018 How many drinks containing alcohol do you have on a Not asked typical day when you are drinking? How often do you have six or more drinks on one Not asked occasion? Sex Assigned at Date Recorded Not on file Job Start Date Occupation Industry Not on file Not on file Not on file Travel History Travel Start Travel End No recent travel history available. documented as of this encounter Last Filed Vital Signs Vital Sign Reading Time Taken Comments Blood Pressure 139/77 04/21/2019 4:00 PM [facility] Pulse 82 04/21/2019 4:00 PM [facility] Temperature 36.7 C (98.1 F) 04/21/2019 12:00 PM [facility] Respiratory Rate 18 04/21/2019 4:00 PM [facility] Oxygen Saturation 94% 04/21/2019 4:00 PM [facility] Inhaled Oxygen Concentration - - Weight 57 kg (125 lb 9.6 oz) 04/17/2019 1:35 AM [facility] Height 162.6 cm (5' 4") 04/17/2019 1:35 AM [facility] Body Mass Index 21.56 04/17/2019 1:35 AM [facility] documented in this encounter Discharge Instructions AttachmentsThe following attachments cannot be sent through Care Everywhere.Vomiting (Adult) (Rwandan)Amoxicillin; Clavulanic Acid tablets ( Rwandan)Tramadol tablets (Rwandan)Ondansetron tablets (Rwandan)documented in this encounter Progress Notes Radha Srinivasan, RD - 04/21/2019 2:25 PM CST MEDICAL NUTRITION THERAPY Progress Note Present on Admission: Complicated UTI (urinary tract infection) Intractable nausea and vomiting Essential hypertension Malignant tumor of colon Mixed hyperlipidemia Medications: Current Facility-Administered Medications: enoxaparin (LOVENOX) injection 40 mg, 40 mg, Subcutaneous, DAILY, Andrew Gomez MD, 40 mg at 04/21/19 0938 ondansetron (ZOFRAN-ODT) disintegrating tablet 4 mg, 4 mg, Oral, Q6HPRN, Andrew Gomez MD, 4 mg at04/21/19 09 pantoprazole (PROTONIX) EC tablet 40 mg, 40 mg, Oral, DAILY, Andrew Gomez MD , 40 mg at 04/21/19 0938 piperacillin-tazobactam (ZOSYN) 3.375 g in NaCl 0.9% (NS) 100 mL MINI-BAG, 3.375 g, IV Piggyback, Q6H ABX, Bao Carranza MD, 3.375 g at 04/21/19 0946 proMETHazine (PHENERGAN) 12.5 mg in NaCl 0.9% (NS) 50 mL IV piggyback, 12.5 mg, IV Piggyback, Q6HPRN, Sherri Mcclelland, ADULT MINISTRIES DIRECTOR, 12.5 mg at 04/20/19 1843 atorvastatin (LIPITOR) tablet 40 mg, 40 mg, Oral, QHS, Bao Carranza MD, 40 mg at 04/20/19 2254 docusate (COLACE) capsule 100 mg, 100 mg, Oral, BID, Bao Carranza MD, 100 mg at 04/21/19 0938 famotidine (PEPCID AC) tablet 20 mg, 20 mg, Oral, BID, Bao Carranza MD, 20 mg at 04/21/19 0938 heparin (1,000 unit/mL, 10 mL vial) for Rebolusing, 3,000 Units, Slow IV Push, FOR REBOLUSING, Uday Ivey, ADULT MINISTRIES DIRECTOR lactobacillus acidophilus (ACIDOPHILLUS) 25 million cell -100 mg captab 1 tablet, 1 tablet, Oral, BID, Bao Carranza MD, 1 tablet at 04/21/19 0938 lisinopril (PRINIVIL,ZESTRIL) tablet 10 mg, 10 mg, Oral, DAILY, Bao Carranza MD, 10 mg at 04/21/19 0941 morpHINE injection 2 mg, 2 mg, Slow IV Push, Q4HPRN, Bao Carranza MD, 2 mg at 04/21/19 0420 morphine IR (MSIR) tablet 15 mg, 15 mg, Oral, Q12H, Bao Carranza MD, 15 mg at 04/21/19 0939 sennosides (SENOKOT) tablet 8.6 mg, 8.6 mg, Oral, BID, Bao Carranza MD, 8.6 mg at 04/20/19 0912 Lab and Medical Test Results: Recent Results (from the past 24 hour(s)) BASIC METABOLIC PANEL (NA, K, CL, CO2, GLUCOSE, BUN, CREATININE, CA) Collection Time: 04/21/19 4:12 AM Result Value Ref Range NA 135 135 - 145 mmol/L K 3.5 3.5 - 5.0 mmol/L CL 100 98 - 108 mmol/L CO2 TOTAL 29 23 - 31 mmol/L AGAP 6 2 - 16 BUN 5 (L) 7 - 23 mg/dL GLUCOSE 93 70 - 110 mg/dL CREATININE 0.49 (L) 0.50 - 1.04 mg/dL CALCIUM 8.5 (L) 8.6 - 10.6 mg/dL eGFR Calculation (Non-) 132.6 mL/min/1.73m2 eGFR Calculation () 160.7 mL/min/1.73m2 PHOSPHORUS Collection Time: 04/21/19 4:12 AM Result Value Ref Range PHOSPHORUS 2.3 (L) 2.5 - 5.0 mg/dL Intake/Output Summary (Last 24 hours) at 04/21/2019 1425 Last data filed at 04/21/2019 0830 Gross per 24 hour Intake 320 ml Output Net 320 ml Weight History: Wt Readings from Last 10 Encounters: 04/17/19 57 kg (125 lb 9.6 oz) 04/07/19 54.9 kg (121 lb 1.6 oz) 03/17/19 60.3 kg (133 lb) 02/24/19 60.6 kg (133 lb 9.6 oz) 02/10/19 60.1 kg (132 lb 9.6 oz) 11/11/17 55.8 kg (123 lb) Current Dietary Order(s): Regular Diet; Texture: Regular. PATIENT FOOD PREFERENCES Nutrition/Additional History: 04/21: Patient reports that she is feeling better and eating better. She reports that she has been eating at least half of all meals. Per EMR patient ate 1/4 of breakfast 04/21. Patient is tolerating diet well. LBM was 04/19. Patient is not willing to try oral nutrition supplements at this time. Will continue to monitor intake & tolerance of diet. Nutrition Interventions: 1. Continue with current medical nutrition therapy 2. Encourage adequate oral intake 3. Monitor oral intake/ tolerance Goals: 1. Patient eats at least 50% or more of meals. Nutrition Monitoring and Evaluation: A registered dietitian will f/u as indicated to report nutrition related information and to revise the recommended nutrition intervention(s). Please call with questions or concerns, thank-you. Anticipated d/c needs: Continue on a regular diet as tolerated. Radha Srinivasan RD, LD Clinical Dietitian Office: [phone] am Awad PTA - 04/20/2019 2:41 PM [facility] Physical Therapy Progress Note: Recommendations: Primary discharge plan: same as prior living situation and home health PT Secondary discharge plan: outpatient PT Equipment recommendations: no device PAIN: reports trunk pain with movement. Did not rate PRECAUTIONS: Weight Bearing Precaution: NA General Precautions: Fall Drain Bracing/Cast present or required:N/A S: Patient agreeable to working with PT. Reports pain with movement. O: Patient met Semi reclined in bed. Patient seen for the following: Bed mobility: - Supine to sit: Modified independent Transfers: Sit to stand: Modified independent using no device Stand to sit: Modified independent using no device Static/dynamic standing balance: Fair+ Gait: Assisted patient with ambulation as follows: 100 feet using no device and SBA/ Setup Patient presenting with Step-through gait pattern Gait is steady with shortened stride length and slowed jeanne. Patient fatigued with 100ft ambulation. No report of dizziness. Good mobility Mod I. After session, patient to BR for drain and then to chair. and call grissom provided. A: Patient tolerated session fair. . P: PT will continue POC with emphasis on gait, transfers and functional mobility. Total Timed Tx Codes in Minutes: 20 Min Total Treatment Time in Minutes: 20 Min Nam Awad PTA Paul Lic [id number] [facility] Rehab Services ADC [phone] Erendira Stanley PT supv Andrew Carter MD - 04/20/2019 1:59 PM CST [facility] Medicine Progress Note Name: Selma Balderas : 1965 Admit Date: 04/16/2019 PCP on file: Willian Loo ASSESSMENT: Selma Balderas is a 53 year old female with PLAN: # Sepsis with no end organ damange # Complicated UTI, recent placed Right PCN in March 2019 in [place] due to hydronephrosis and large pelvic mass, supposed to be exchanged in May 2018 - IV zosyn day 5 - ID following - Blood culture neg. Urine culture: contaminated - Urology/Dr. Goddard following # Abdominal pain, n/v, persistent. Recurrent trips to the ER for the past 2-3 days. Failed outpatient treatment - CT abd/pelvis done, no obstruction - Symptomatic control - Possible related to metastatic disease and/or UTI - Zofran prn - reglan prn #Dyspnea, cough sometimes productive - Likely acute viral bronchitis - Influenza negative, respiratory panel negative - CT chest done showing innumerable lung mets # Elevated troponins, likely type 2 nstemi - echo unremarkable - heparin gtt d/c'd - Cardiology consult Dr. Segovia - Telemetry # low TSH, and normal free T4, likely euthyroid syndrome # Metastatic colon cancer with mets to liver, pelvic mass, lungs b/l, omentum - Follows Dr. Norman oncology - Hx of colon cancer before that was treated with surgery and chemo but lost to follow up in between - family requested transfer to a facility for inpatient chemo. I d/w Dr. Norman over the phone on 04/19. Per Dr. Norman, patient is not currently a candidate for chemo therapy given complicated UTI and uncontrolled nausea and vomiting. Patient and family were updated # Hypertension - Lisinopril 10 mg qd # Hyperlipidemia - Atorvastatin 40 mg qd # hypokalemia, hypophosphatemia - repletion Dispo: home possibly tomorrow VTE Prophylaxis: enoxaparin Code Status: FC Electronically signed by: Andrew Gomez MD SUBJECTIVE/ 24-HOUR HOSPITAL EVENTS: 04/17: pain in abd and back, /10. Intermittent nausea. 04/18: still has pain, but feels better. Last fever 38.1 degree yesterday evening. 04/19: intermittent nausea. Abd pain controlled. 1/16: much better. Nausea improved. Pain controlled. Appetite better. Afebrile. OBJECTIVE: Vital signs range: Temp: [36.1 C (97 F)-37.2 C (99 F)] 37.2 C (99 F) Pulse: [75-87] 78 Resp: [16-18] 18 BP: (122-170)/(70-79) 122/72 Most recent vital signs: BP 122/72 | Pulse 78 | Temp 37.2 C (99 F) (Temporal Artery) | Resp 18 | Ht 1.626 m (5' 4") | Wt 57 kg (125 lb 9.6 oz) | SpO2 94% | BMI 21.56 kg/m I/O: I/O last 3 completed shifts: In: 720 [Oral:720] Out: 450 [Urine:450] PHYSICAL EXAM: General: alert and oriented; no apparent distress HEENT: pupils equal, round, reactive to light; extraocular movements intact; oropharynx clear; moistmucous membranes Neck: supple, no lymphadenopathy, no bruits, no JVD Lungs: clear to auscultation bilaterally Cardio: S1, S2 normal; tachycardia; no murmurs, rubs or gallops Abdomen: soft; mild diffuse tender; non-distended; normoactive bowel sounds : right nephrostomy tube in place Extremities: no clubbing, cyanosis, or edema Skin: no rashes LABS: I reviewed all the relevant patient's new lab test results Recent Results (from the past 24 hour(s)) BASIC METABOLIC PANEL (NA, K, CL, CO2, GLUCOSE, BUN, CREATININE, CA) Collection Time: 04/20/19 4:55 AM Result Value Ref Range NA 137 135 - 145 mmol/L K 3.1 (L) 3.5 - 5.0 mmol/L CL 100 98 - 108 mmol/L CO2 TOTAL 30 23 - 31 mmol/L AGAP 7 2 - 16 BUN 5 (L) 7 - 23 mg/dL GLUCOSE 96 70 - 110 mg/dL CREATININE 0.54 0.50 - 1.04 mg/dL CALCIUM 8.1 (L) 8.6 - 10.6 mg/dL eGFR Calculation (Non-) 118.6 mL/min/1.73m2 eGFR Calculation () 143.7 mL/min/1.73m2 IMAGING: I reviewed all the relevant patient's new radiology test results Hospital Encounter on 04/16/19 CT CHEST PULMONARY ANGIOGRAM Narrative Indication: Chest pain, short of breath Comparison: Chest radiograph dated 04/16/2019 Technique: CTA of the chest was performed following the administration of intravenous contrast material. Three-dimensional reformats were generated following completion of the exam. CT scan was performed according to ALARA (as low as reasonably achievable) policy. Findings: The visualized thyroid gland is within normal limits. There is no thoracic aortic aneurysm or dissection. The heart is normal in size without significant pericardial effusion. No filling defect is appreciated in the pulmonary arteries to the level of the distal segmental arteries. There are multiple enlarged mediastinal and hilar lymph nodes, with subcarinal nodes measuring up to 28 mm, right hilar nodes measuring up to 24 mm and left hilar nodes measuring up to 21 mm. Right internal jugular port catheter terminates in the SVC. There are innumerable pulmonary nodules in the lungs bilaterally with largest in the left upper lobe measuring 24 mm and largest in the right lower lobe measuring 29 mm. There is dependent atelectasis without other superimposed pulmonary process. Bone windows through the chest demonstrate no osseous destructive lesion. Impression Impression: No CTA evidence for pulmonary embolus. Mediastinal lymphadenopathy as above. Innumerable pulmonary nodules in the lungs bilaterally, most consistent with neoplasm. Mild dependent atelectasis in the lungs bilaterally. RL: [id number] AFC: [id number] ABDOMEN PELVIS W CONTRAST Narrative Indication: Nausea and vomiting, generalized abdominal pain COMPARISON: None available TECHNIQUE: Axial images of the abdomen and pelvis are performed following administration of intravenous contrast material. Images were reformatted in the coronal and sagittal plane. CT scan was performed according to ALARA (as low as reasonably achievable) policy. FINDINGS: There are multiple hypoattenuating lesions in the liver, the largest in the medial dome measuring 2.8 cm. The gallbladder, spleen, adrenal glands and pancreas are within normal limits. The left kidney is unremarkable. A right nephrostomy tube is in place, with only mild fullness of the right collecting system. There is some mucosal enhancement in the right proximal ureter. There is no abdominal aortic aneurysm or dissection. There is trace free fluid in the pelvis. There is a large heterogeneously enhancing mass contiguous with the uterus and right ovary, measuring 10.1 x 6.2 x 9.1 cm. There are multiple metastatic implants in the inferior pelvis (series 11, image 139 and in the anterior omentum. The patient is status post partial resection of the proximal colon. There is no bowel obstruction. Bone windows through the abdomen and pelvis demonstrate no osseous destructive lesion. Impression Multiple hypoattenuating lesions in the liver, the largest of which measures 2.8 cm, concerning for hepatic metastatic disease. Right-sided percutaneous nephrostomy tube with only mild fullness of the right collecting system. There is some mild mucosal enhancement in the right proximal ureter, with slightly heterogeneous enhancement of the renal parenchyma. Urinary tract infection would be in the differential. Large heterogeneously enhancing mass contiguous with the uterus and right ovary, measuring 10.1 cm, consistent with neoplasm. Multiple metastatic implants in the pelvis and omentum. Status post partial bowel resection without bowel obstruction or anastomotic leak. RL: 460 AFC: [id number] CHEST 1 VW Narrative Indication: Chest pain Comparison: None available Findings: Single AP view of the chest. The cardiopericardial silhouette is within normal limits. Right internal jugular port catheter is in place, with tip in the distal SVC. There is a large nodule in the medial left lung apex, measuring 22 mm. There are multiple smaller nodules throughout the lungs bilaterally, predominantly in the lower lungs.. The visualized bony thorax is intact. Impression Impression: 22 mm nodule in the medial left lung apex, with multiple smaller nodules throughout the lungs bilaterally, most notably in the lower lobes. Comparison with prior films is recommended to evaluate for interval change. RL: 460 AFC: [id number] CATIONS: I reviewed the current inpatient medications ordered Current Facility-Administered Medications Medication Dose Route Frequency Last Rate Last Dose ondansetron (ZOFRAN-ODT) disintegrating tablet 4 mg 4 mg Oral Q6HPRN 4 mg at 04/19/192019 pantoprazole (PROTONIX) EC tablet 40 mg 40 mg Oral DAILY 40 mg at 0912 piperacillin-tazobactam (ZOSYN) 3.375 g in NaCl 0.9% (NS) 100 mL MINI-BAG 3.375 g IV Piggyback Q6H ABX 3.375 g at 04/20/19 1030 proMETHazine (PHENERGAN) 12.5 mg in NaCl 0.9% (NS) 50 mL IV piggyback 12.5 mg IV Piggyback Q6HPRN 12.5 mg at 04/20/19 0803 atorvastatin (LIPITOR) tablet 40 mg 40 mg Oral QHS 40 mg at 04/19/19 2019 docusate (COLACE) capsule 100 mg 100 mg Oral BID 100 mg at 04/20/19 0912 famotidine (PEPCID AC) tablet 20 mg 20 mg Oral BID 20 mg at 04/20/19 0912 heparin (1,000 unit/mL, 10 mL vial) for Rebolusing 3,000 Units Slow IV Push FOR REBOLUSING lactobacillus acidophilus (ACIDOPHILLUS) 25 million cell -100 mg captab 1 tablet 1 tablet Oral BID 1 tablet at 04/20/19 0912 lisinopril (PRINIVIL,ZESTRIL) tablet 10 mg 10 mg Oral DAILY 10 mg at 0912 morpHINE injection 2 mg 2 mg Slow IV Push Q4HPRN 2 mg at 04/20/19 1036 morphine IR (MSIR) tablet 15 mg 15 mg Oral Q12H 15 mg at 04/20/19 0912 sennosides (SENOKOT) tablet 8.6 mg 8.6 mg Oral BID 8.6 mg at 04/20/19 0912 Andrew Carter MD - 04/19/2019 3:05 PM CST [facility] Progress Note Name: Selma Balderas : 1965 Admit Date: 04/16/2019 PCP on file: Willian Loo ASSESSMENT: Selma Balderas is a 53 year old female with PLAN: # Sepsis with no end organ damange # Complicated UTI, recent placed Right PCN in March 2019 in [place] due to hydronephrosis and large pelvic mass, supposed to be exchanged in May 2018 - IV zosyn day 4 - ID following - d/c IVF - Blood culture neg. Urine culture: contaminated - Urology/Dr. Goddard following # Abdominal pain, n/v, persistent. Recurrent trips to the ER for the past 2-3 days. Failed outpatient treatment - CT abd/pelvis done, no obstruction - Symptomatic control - Possible related to metastatic disease and/or UTI - Zofran prn - reglan prn #Dyspnea, cough sometimes productive - Likely acute viral bronchitis - Influenza negative, respiratory panel negative - CT chest done showing innumerable lung mets # Elevated troponins, likely type 2 nstemi - echo unremarkable - heparin gtt d/c'd - Cardiology consult Dr. Segovia - Telemetry # low TSH, and normal free T4, likely euthyroid syndrome # Metastatic colon cancer with mets to liver, pelvic mass, lungs b/l, omentum - Follows Dr. Norman oncology - Hx of colon cancer before that was treated with surgery and chemo but lost to follow up in between - family requested transfer to a facility for inpatient chemo. I d/w Dr. Norman over the phone. Per Dr. Norman, patient is not currently a candidate for chemo therapy given complicated UTI and uncontrollednausea and vomiting. Patient and family were updated # Hypertension - Lisinopril 10 mg qd # Hyperlipidemia - Atorvastatin 40 mg qd Dispo: home VTE Prophylaxis: enoxaparin Code Status: FC Electronically signed by: Andrew Gomez MD SUBJECTIVE/ 24-HOUR HOSPITAL EVENTS: 04/17: pain in abd and back, 09/12. Intermittent nausea. 04/18: still has pain, but feels better. Last fever 38.1 degree yesterday evening. 04/19: intermittent nausea. Abd pain controlled. OBJECTIVE: Vital signs range: Temp: [36.9 C (98.5 F)-37.2 C (99 F)] 36.9 C (98.5 F) Pulse: [86-92] 92 Resp: [16-18] 16 BP: (129-138)/(66-75) 129/70 Most recent vital signs: BP 129/70 | Pulse 92 | Temp 36.9 C (98.5 F) (Temporal Artery) | Resp 16 | Ht 1.626 m (5' 4") | Wt 57 kg (125 lb 9.6 oz) | SpO2 96% | BMI 21.56 kg/m I/O: I/O last 3 completed shifts: In: 755 [Oral:355; I.V.:400] Out: 950 [Urine:950] PHYSICAL EXAM: General: alert and oriented; no apparent distress HEENT: pupils equal, round, reactive to light; extraocular movements intact; oropharynx clear; moistmucous membranes Neck: supple, no lymphadenopathy, no bruits, no JVD Lungs: clear to auscultation bilaterally Cardio: S1, S2 normal; tachycardia; no murmurs, rubs or gallops Abdomen: soft; mild diffuse tender; non-distended; normoactive bowel sounds : right nephrostomy tube in place Extremities: no clubbing, cyanosis, or edema Skin: no rashes LABS: I reviewed all the relevant patient's new lab test results Recent Results (from the past 24 hour(s)) COMP. METABOLIC PANEL (51652) Collection Time: 04/19/19 4:17 AM Result Value Ref Range NA 134 (L) 135 - 145 mmol/L K 3.1 (L) 3.5 - 5.0 mmol/L CL 101 98 - 108 mmol/L CO2 TOTAL 27 23 - 31 mmol/L AGAP 6 2 - 16 BUN 5 (L) 7 - 23 mg/dL GLUCOSE 87 70 - 110 mg/dL CREATININE 0.47 (L) 0.50 - 1.04 mg/dL TOTAL BILI 0.4 0.1 - 1.1 mg/dL CALCIUM 7.9 (L) 8.6 - 10.6 mg/dL T PROTEIN 5.6 (L) 6.3 - 8.2 g/dL ALBUMIN 2.7 (L) 3.5 - 5.0 g/dL ALK PHOS 263 (H) 34 - 122 U/L ALTv 35 5 - 35 U/L AST(SGOT) 49 (H) 13 - 40 U/L eGFR Calculation (Non-) 139.2 mL/min/1.73m2 eGFR Calculation () 168.7 mL/min/1.73m2 TROPONIN I Collection Time: 04/19/19 4:17 AM Result Value Ref Range TROPONIN I 0.052 (H) <=0.034 ng/mL CBC WITH DIFFERENTIAL Collection Time: 04/19/19 4:17 AM Result Value Ref Range WBC 7.22 4.30 - 11.10 10*3/L RBC 2.81 (L) 3.93 - 5.25 10*6/L HGB 8.2 (L) 11.6 - 15.0 g/dL HCT 25.7 (L) 35.7 - 45.2 % MCV 91.5 80.6 - 95.5 fL MCH 29.2 25.9 - 32.8 pg MCHC 31.9 31.6 - 35.1 g/dL RDW-SD 44.6 39.0 - 49.9 fL RDW-CV 13.4 12.0 - 15.5 % PLT 342 166 - 358 10*3/L MPV 10.3 9.5 - 12.9 fL NRBC/100 WBC 0.0 0.0 - 10.0 /100 WBCs NRBC x10^3 <0.01 10*3/L GRAN MAT (NEUT) % 72.4 % IMM GRAN % 1.10 % LYMPH % 17.9 % MONO % 7.6 % EOS % 0.7 % BASO % 0.3 % GRAN MAT x10^3(ANC) 5.23 1.88 - 7.09 10*3/uL IMM GRAN x10^3 0.08 (H) 0.00 - 0.06 10*3/uL LYMPH x10^3 1.29 (L) 1.32 - 3.29 10*3/uL MONO x10^3 0.55 0.33 - 0.92 10*3/uL EOS x10^3 0.05 0.03 - 0.39 10*3/uL BASO x10^3 <0.03 0.01 - 0.07 10*3/uL IMAGING: I reviewed all the relevant patient's new radiology test results Hospital Encounter on 04/16/19 CT CHEST PULMONARY ANGIOGRAM Narrative Indication: Chest pain, short of breath Comparison: Chest radiograph dated 04/16/2019 Technique: CTA of the chest was performed following the administration of intravenous contrast material. Three-dimensional reformats were generated following completion of the exam. CT scan was performed according to ALARA (as low as reasonably achievable) policy. Findings: The visualized thyroid gland is within normal limits. There is no thoracic aortic aneurysm or dissection. The heart is normal in size without significant pericardial effusion. No filling defect is appreciated in the pulmonary arteries to the level of the distal segmental arteries. There are multiple enlarged mediastinal and hilar lymph nodes, with subcarinal nodes measuring up to 28 mm, right hilar nodes measuring up to 24 mm and left hilar nodes measuring up to 21 mm. Right internal jugular port catheter terminates in the SVC. There are innumerable pulmonary nodules in the lungs bilaterally with largest in the left upper lobe measuring 24 mm and largest in the right lower lobe measuring 29 mm. There is dependent atelectasis without other superimposed pulmonary process. Bone windows through the chest demonstrate no osseous destructive lesion. Impression Impression: No CTA evidence for pulmonary embolus. Mediastinal lymphadenopathy as above. Innumerable pulmonary nodules in the lungs bilaterally, most consistent with neoplasm. Mild dependent atelectasis in the lungs bilaterally. RL: [id number] AFC: [id number] ABDOMEN PELVIS W CONTRAST Narrative Indication: Nausea and vomiting, generalized abdominal pain COMPARISON: None available TECHNIQUE: Axial images of the abdomen and pelvis are performed following administration of intravenous contrast material. Images were reformatted in the coronal and sagittal plane. CT scan was performed according to ALARA (as low as reasonably achievable) policy. FINDINGS: There are multiple hypoattenuating lesions in the liver, the largest in the medial dome measuring 2.8 cm. The gallbladder, spleen, adrenal glands and pancreas are within normal limits. The left kidney is unremarkable. A right nephrostomy tube is in place, with only mild fullness of the right collecting system. There is some mucosal enhancement in the right proximal ureter. There is no abdominal aortic aneurysm or dissection. There is trace free fluid in the pelvis. There is a large heterogeneously enhancing mass contiguous with the uterus and right ovary, measuring 10.1 x 6.2 x 9.1 cm. There are multiple metastatic implants in the inferior pelvis (series 11, image 139 and in the anterior omentum. The patient is status post partial resection of the proximal colon. There is no bowel obstruction. Bone windows through the abdomen and pelvis demonstrate no osseous destructive lesion. Impression Multiple hypoattenuating lesions in the liver, the largest of which measures 2.8 cm, concerning for hepatic metastatic disease. Right-sided percutaneous nephrostomy tube with only mild fullness of the right collecting system. There is some mild mucosal enhancement in the right proximal ureter, with slightly heterogeneous enhancement of the renal parenchyma. Urinary tract infection would be in the differential. Large heterogeneously enhancing mass contiguous with the uterus and right ovary, measuring 10.1 cm, consistent with neoplasm. Multiple metastatic implants in the pelvis and omentum. Status post partial bowel resection without bowel obstruction or anastomotic leak. RL: 460 AFC: [id number] CHEST 1 VW Narrative Indication: Chest pain Comparison: None available Findings: Single AP view of the chest. The cardiopericardial silhouette is within normal limits. Right internal jugular port catheter is in place, with tip in the distal SVC. There is a large nodule in the medial left lung apex, measuring 22 mm. There are multiple smaller nodules throughout the lungs bilaterally, predominantly in the lower lungs.. The visualized bony thorax is intact. Impression Impression: 22 mm nodule in the medial left lung apex, with multiple smaller nodules throughout the lungs bilaterally, most notably in the lower lobes. Comparison with prior films is recommended to evaluate for interval change. RL: 460 AFC: [id number] CATIONS: I reviewed the current inpatient medications ordered Current Facility-Administered Medications Medication Dose Route Frequency Last Rate Last Dose ondansetron (ZOFRAN-ODT) disintegrating tablet 4 mg 4 mg Oral Q6HPRN pantoprazole (PROTONIX) EC tablet 40 mg 40 mg Oral DAILY 40 mg at 1240 NaCl 0.9% (NS) IV infusion 1,000 mL 1,000 mL IV Infusion CONTINUOUS 100 mL/ hr at 04/19/19 0152 1,000 mL at 04/19/19 0152 piperacillin-tazobactam (ZOSYN) 3.375 g in NaCl 0.9% (NS) 100 mL MINI-BAG 3.375 g IV Piggyback Q6H ABX 3.375 g at 04/19/19 1032 proMETHazine (PHENERGAN) 12.5 mg in NaCl 0.9% (NS) 50 mL IV piggyback 12.5 mg IV Piggyback Q6HPRN 12.5 mg at 04/19/19 0829 atorvastatin (LIPITOR) tablet 40 mg 40 mg Oral QHS 40 mg at 04/18/192012 docusate (COLACE) capsule 100 mg 100 mg Oral BID 100 mg at 04/18/192012 famotidine (PEPCID AC) tablet 20 mg 20 mg Oral BID 20 mg at 04/19/19 0828 heparin (1,000 unit/mL, 10 mL vial) for Rebolusing 3,000 Units Slow IV Push FOR REBOLUSING lactobacillus acidophilus (ACIDOPHILLUS) 25 million cell -100 mg captab 1 tablet 1 tablet Oral BID 1 tablet at 04/19/19 0828 lisinopril (PRINIVIL,ZESTRIL) tablet 10 mg 10 mg Oral DAILY 10 mg at 0829 morpHINE injection 2 mg 2 mg Slow IV Push Q4HPRN 2 mg at 04/19/19 1248 morphine IR (MSIR) tablet 15 mg 15 mg Oral Q12H 15 mg at 04/19/19 0828 sennosides (SENOKOT) tablet 8.6 mg 8.6 mg Oral BID 8.6 mg at 04/18/192012 ayron Chirinos MD - 04/19/2019 1:37 PM CST Patient laying in bed feeling much better today denies any headache nausea vomiting chest pain abdominal pain constipation diarrhea Vitals: 04/18/19 2313 04/19/19 0325 04/19/19 0700 04/19/19 1200 BP: 129/68 132/66 134/75 129/70 Pulse: 86 88 90 92 Resp: 17 17 18 18 Temp: 37.1 C (98.7 F) 37.2 C (99 F) 37.1 C (98.7 F) 36.9 C (98.5 F) TempSrc: Oral Oral Temporal Artery Temporal Artery SpO2: 94% 95% 95% 96% Weight: Height: Lungs clear to auscultation Heart S1-S2 regular Abdomen: Soft, bowel sound present Extremity: No edema CBC WBC (10*3/L) Date Value 04/19/2019 7.22 RBC (10*6/L) Date Value 04/19/2019 2.81 (L) PLT (10*3/L) Date Value 04/19/2019 342 HGB (g/dL) Date Value 04/19/2019 8.2 (L) HCT (%) Date Value 04/19/2019 25.7 (L) CMP NA (mmol/L) Date Value 04/19/2019 134 (L) K (mmol/L) Date Value 04/19/2019 3.1 (L) CALCIUM (mg/dL) Date Value 04/19/2019 7.9 (L) CL (mmol/L) Date Value 04/19/2019 101 BUN (mg/dL) Date Value 04/19/2019 5 (L) CREATININE (mg/dL) Date Value 04/19/2019 0.47 (L) GLUCOSE (mg/dL) Date Value 04/19/2019 87 CO2 TOTAL (mmol/L) Date Value 04/19/2019 27 ALBUMIN (g/dL) Date Value 04/19/2019 2.7 (L) T PROTEIN (g/dL) Date Value 04/19/2019 5.6 (L) TOTAL BILI (mg/dL) Date Value 04/19/2019 0.4 BILI UNCON (mg/dL) Date Value 03/14/2019 0.2 BILI CONJ (mg/dL) Date Value 03/14/2019 0.0 ALT(SGPT) (U/L) Date Value 11/11/2017 26 ALTv (U/L) Date Value 04/19/2019 35 AST(SGOT) (U/L) Date Value 04/19/2019 49 (H) ALK PHOS (U/L) Date Value 04/19/2019 263 (H) Blood cultures negative Assessment and plan Sepsis improving Ureter tract infection Abdominal pain is improving with nausea vomiting subsiding Continue antibiotic for 5-7 days can be switched to oral on discharge Andrew Carter MD - 04/18/2019 6:48 PM CST Hospital Medicine Progress Note Name: Selma Balderas : 1965 Admit Date: 04/16/2019 PCP on file: Willian Loo ASSESSMENT: Selma Balderas is a 53 year old female with PLAN: # Sepsis with no end organ damange # Complicated UTI, recent placed Right PCN in March 2019 in [place] due to hydronephrosis and large pelvic mass, supposed to be exchanged in May 2018 - IV zosyn day 3 - IVF - F/u urine and blood cultures - Urology/Dr. Goddard following. PCN tube change if no improvement per Urology # Abdominal pain, n/v, persistent. Recurrent trips to the ER for the past 2-3 days. Failed outpatient treatment - CT abd/pelvis done, no obstruction - Symptomatic control - Possible related to metastatic disease and/or UTI - Zofran prn - reglan prn #Dyspnea, cough sometimes productive - Likely acute viral bronchitis - Influenza negative, respiratory panel negative - CT chest done showing innumerable lung mets # Elevated troponins, likely type 2 nstemi - echo unremarkable - heparin gtt d/c'd yesterday evening - Cardiology consult Dr. Segovia - Telemetry # low TSH, and normal free T4, likely euthyroid syndrome # Metastatic colon cancer with mets to liver, pelvic mass, lungs b/l, omentum - Follows Dr. Norman oncology - Plan is to start chemo this week - Hx of colon cancer before that was treated with surgery and chemo but lost to follow up in between # Hypertension - Lisinopril 10 mg qd # Hyperlipidemia - Atorvastatin 40 mg qd Dispo: home VTE Prophylaxis: enoxaparin Code Status: FC Electronically signed by: Andrew Gomez MD SUBJECTIVE/ 24-HOUR HOSPITAL EVENTS: 04/17: pain in abd and back, /10. Intermittent nausea. 04/18: still has pain, but feels better. Last fever 38.1 degree yesterday evening. OBJECTIVE: Vital signs range: Temp: [36.6 C (97.9 F)-37.5 C (99.5 F)] 37 C (98.6 F) Pulse: [61-102] 89 Resp: [16-19] 18 BP: (121-150)/(54-78) 138/71 Most recent vital signs: BP 138/71 | Pulse 89 | Temp 37 C (98.6 F) (Oral) | Resp 18 | Ht 1.626 m (5' 4") | Wt 57 kg (125 lb 9.6 oz) | SpO2 98% | BMI 21.56 kg/m I/O: I/O last 3 completed shifts: In: 665 [Oral:240; I.V.:425] Out: 900 [Urine:900] PHYSICAL EXAM: General: alert and oriented; no apparent distress HEENT: pupils equal, round, reactive to light; extraocular movements intact; oropharynx clear; moistmucous membranes Neck: supple, no lymphadenopathy, no bruits, no JVD Lungs: clear to auscultation bilaterally Cardio: S1, S2 normal; tachycardia; no murmurs, rubs or gallops Abdomen: soft; mild diffuse tender; non-distended; normoactive bowel sounds : right nephrostomy tube in place Extremities: no clubbing, cyanosis, or edema Skin: no rashes LABS: I reviewed all the relevant patient's new lab test results Recent Results (from the past 24 hour(s)) aPTT Collection Time: 04/18/19 4:16 AM Result Value Ref Range APTT Patient 40 (H) 23 - 38 Seconds MAGNESIUM Collection Time: 04/18/19 4:16 AM Result Value Ref Range MAGNESIUM 1.9 1.7 - 2.4 mg/dL CBC WITH DIFFERENTIAL Collection Time: 04/18/19 4:16 AM Result Value Ref Range WBC 9.21 4.30 - 11.10 10*3/L RBC 2.86 (L) 3.93 - 5.25 10*6/L HGB 8.3 (L) 11.6 - 15.0 g/dL HCT 26.4 (L) 35.7 - 45.2 % MCV 92.3 80.6 - 95.5 fL MCH 29.0 25.9 - 32.8 pg MCHC 31.4 (L) 31.6 - 35.1 g/dL RDW-SD 46.1 39.0 - 49.9 fL RDW-CV 13.6 12.0 - 15.5 % PLT 280 166 - 358 10*3/L MPV 10.3 9.5 - 12.9 fL NRBC/100 WBC 0.0 0.0 - 10.0 /100 WBCs NRBC x10^3 <0.01 10*3/L GRAN MAT (NEUT) % 74.5 % IMM GRAN % 1.00 % LYMPH % 13.8 % MONO % 10.3 % EOS % 0.1 % BASO % 0.3 % GRAN MAT x10^3(ANC) 6.86 1.88 - 7.09 10*3/uL IMM GRAN x10^3 0.09 (H) 0.00 - 0.06 10*3/uL LYMPH x10^3 1.27 (L) 1.32 - 3.29 10*3/uL MONO x10^3 0.95 (H) 0.33 - 0.92 10*3/uL EOS x10^3 <0.03 (L) 0.03 - 0.39 10*3/uL BASO x10^3 0.03 0.01 - 0.07 10*3/uL COMP. METABOLIC PANEL ([id number]) Collection Time: 04/18/19 4:16 AM Result Value Ref Range NA 135 135 - 145 mmol/L K 3.6 3.5 - 5.0 mmol/L CL 105 98 - 108 mmol/L CO2 TOTAL 22 (L) 23 - 31 mmol/L AGAP 8 2 - 16 BUN 8 7 - 23 mg/dL GLUCOSE 94 70 - 110 mg/dL CREATININE 0.60 0.50 - 1.04 mg/dL TOTAL BILI 0.3 0.1 - 1.1 mg/dL CALCIUM 8.1 (L) 8.6 - 10.6 mg/dL T PROTEIN 5.8 (L) 6.3 - 8.2 g/dL ALBUMIN 2.9 (L) 3.5 - 5.0 g/dL ALK PHOS 287 (H) 34 - 122 U/L ALTv 41 (H) 5 - 35 U/L AST(SGOT) 56 (H) 13 - 40 U/L eGFR Calculation (Non-) 105.0 mL/min/1.73m2 eGFR Calculation () 127.2 mL/min/1.73m2 TROPONIN I Collection Time: 04/18/19 4:16 AM Result Value Ref Range TROPONIN I 0.097 (H) <=0.034 ng/mL N-TERMINAL PRO-BNP Collection Time: 04/18/19 4:16 AM Result Value Ref Range NT-proBNP 2,860 (H) <=125 pg/mL PHOSPHORUS Collection Time: 04/18/19 4:16 AM Result Value Ref Range PHOSPHORUS 1.7 (L) 2.5 - 5.0 mg/dL IMAGING: I reviewed all the relevant patient's new radiology test results Hospital Encounter on 04/16/19 CT CHEST PULMONARY ANGIOGRAM Narrative Indication: Chest pain, short of breath Comparison: Chest radiograph dated 04/16/2019 Technique: CTA of the chest was performed following the administration of intravenous contrast material. Three-dimensional reformats were generated following completion of the exam. CT scan was performed according to ALARA (as low as reasonably achievable) policy. Findings: The visualized thyroid gland is within normal limits. There is no thoracic aortic aneurysm or dissection. The heart is normal in size without significant pericardial effusion. No filling defect is appreciated in the pulmonary arteries to the level of the distal segmental arteries. There are multiple enlarged mediastinal and hilar lymph nodes, with subcarinal nodes measuring up to 28 mm, right hilar nodes measuring up to 24 mm and left hilar nodes measuring up to 21 mm. Right internal jugular port catheter terminates in the SVC. There are innumerable pulmonary nodules in the lungs bilaterally with largest in the left upper lobe measuring 24 mm and largest in the right lower lobe measuring 29 mm. There is dependent atelectasis without other superimposed pulmonary process. Bone windows through the chest demonstrate no osseous destructive lesion. Impression Impression: No CTA evidence for pulmonary embolus. Mediastinal lymphadenopathy as above. Innumerable pulmonary nodules in the lungs bilaterally, most consistent with neoplasm. Mild dependent atelectasis in the lungs bilaterally. RL: [id number] AFC: [id number] ABDOMEN PELVIS W CONTRAST Narrative Indication: Nausea and vomiting, generalized abdominal pain COMPARISON: None available TECHNIQUE: Axial images of the abdomen and pelvis are performed following administration of intravenous contrast material. Images were reformatted in the coronal and sagittal plane. CT scan was performed according to ALARA (as low as reasonably achievable) policy. FINDINGS: There are multiple hypoattenuating lesions in the liver, the largest in the medial dome measuring 2.8 cm. The gallbladder, spleen, adrenal glands and pancreas are within normal limits. The left kidney is unremarkable. A right nephrostomy tube is in place, with only mild fullness of the right collecting system. There is some mucosal enhancement in the right proximal ureter. There is no abdominal aortic aneurysm or dissection. There is trace free fluid in the pelvis. There is a large heterogeneously enhancing mass contiguous with the uterus and right ovary, measuring 10.1 x 6.2 x 9.1 cm. There are multiple metastatic implants in the inferior pelvis (series 11, image 139 and in the anterior omentum. The patient is status post partial resection of the proximal colon. There is no bowel obstruction. Bone windows through the abdomen and pelvis demonstrate no osseous destructive lesion. Impression Multiple hypoattenuating lesions in the liver, the largest of which measures 2.8 cm, concerning for hepatic metastatic disease. Right-sided percutaneous nephrostomy tube with only mild fullness of the right collecting system. There is some mild mucosal enhancement in the right proximal ureter, with slightly heterogeneous enhancement of the renal parenchyma. Urinary tract infection would be in the differential. Large heterogeneously enhancing mass contiguous with the uterus and right ovary, measuring 10.1 cm, consistent with neoplasm. Multiple metastatic implants in the pelvis and omentum. Status post partial bowel resection without bowel obstruction or anastomotic leak. RL: 460 AFC: [id number] CHEST 1 VW Narrative Indication: Chest pain Comparison: None available Findings: Single AP view of the chest. The cardiopericardial silhouette is within normal limits. Right internal jugular port catheter is in place, with tip in the distal SVC. There is a large nodule in the medial left lung apex, measuring 22 mm. There are multiple smaller nodules throughout the lungs bilaterally, predominantly in the lower lungs.. The visualized bony thorax is intact. Impression Impression: 22 mm nodule in the medial left lung apex, with multiple smaller nodules throughout the lungs bilaterally, most notably in the lower lobes. Comparison with prior films is recommended to evaluate for interval change. RL: 460 AFC: [id number] CATIONS: I reviewed the current inpatient medications ordered Current Facility-Administered Medications Medication Dose Route Frequency Last Rate Last Dose NaCl 0.9% (NS) IV infusion 1,000 mL 1,000 mL IV Infusion CONTINUOUS 100 mL/ hr at 04/18/19 1043 1,000 mL at 04/18/19 1043 piperacillin-tazobactam (ZOSYN) 3.375 g in NaCl 0.9% (NS) 100 mL MINI-BAG 3.375 g IV Piggyback Q6H ABX 3.375 g at 04/18/19 1647 proMETHazine (PHENERGAN) 12.5 mg in NaCl 0.9% (NS) 50 mL IV piggyback 12.5 mg IV Piggyback Q6HPRN 12.5 mg at 04/17/19 1800 atorvastatin (LIPITOR) tablet 40 mg 40 mg Oral QHS 40 mg at 04/17/19 2119 docusate (COLACE) capsule 100 mg 100 mg Oral BID 100 mg at 04/18/19 0903 famotidine (PEPCID AC) tablet 20 mg 20 mg Oral BID 20 mg at 04/18/19 0903 heparin (1,000 unit/mL, 10 mL vial) for Rebolusing 3,000 Units Slow IV Push FOR REBOLUSING lactobacillus acidophilus (ACIDOPHILLUS) 25 million cell -100 mg captab 1 tablet 1 tablet Oral BID 1 tablet at 04/18/19 0902 lisinopril (PRINIVIL,ZESTRIL) tablet 10 mg 10 mg Oral DAILY 10 mg at 0903 morpHINE injection 2 mg 2 mg Slow IV Push Q4HPRN 2 mg at 04/18/19 1451 morphine IR (MSIR) tablet 15 mg 15 mg Oral Q12H 15 mg at 04/18/19 0903 ondansetron (ZOFRAN (PF)) injection 4 mg 4 mg Slow IV Push Q6HPRN 4 mg at 04/17/19 1553 sennosides (SENOKOT) tablet 8.6 mg 8.6 mg Oral BID 8.6 mg at 04/18/19 0903 ayron Chirinos MD - 04/18/2019 2:12 PM CST Ration laying in bed feeling slightly better today denies any fevers. Continued to have some chest discomfort and abdominal or discomfort no more nausea and vomiting today Vitals: 04/18/19 0009 04/18/19 0412 04/18/19 0800 04/18/19 1200 BP: 124/77 126/56 136/78 121/71 Pulse: 95 78 102 88 Resp: 18 19 16 18 Temp: 37.5 C (99.5 F) 37.2 C (99 F) 37.1 C (98.7 F) 36.9 C (98.4 F) TempSrc: Oral Oral Oral Oral SpO2: 94% 93% 92% 92% Weight: Height: Lungs basal crackles Heart S1-S2 regular Abdomen soft bowel sound present Next remedy no edema CBC WBC (10*3/L) Date Value 04/18/2019 9.21 RBC (10*6/L) Date Value 04/18/2019 2.86 (L) PLT (10*3/L) Date Value 04/18/2019 280 HGB (g/dL) Date Value 04/18/2019 8.3 (L) HCT (%) Date Value 04/18/2019 26.4 (L) Cultures remain negative Assessment and plan: Ureter tract infection continue Zosyn Abdominal pain with nausea and vomiting improving Colon cancer Bronchitis Continue antibiotic for 7 days Eliza Murray MD - 04/18/2019 8:22 AM CST [facility] Cardiology progress note Date of Service: 04/18/2019 Selma Balderas is a 53 years old female hospitalized for UTI sepsis. Feeling better. PHYSICAL EXAM Vitals: 04/17/19 1950 04/17/19 2118 04/18/19 0009 04/18/19 0412 BP: (!) 150/54 124/77 126/56 Pulse: 61 95 78 Resp: 18 18 18 19 Temp: 36.6 C (97.9 F) 37.5 C (99.5 F) 37.2 C (99 F) TempSrc: Oral Oral Oral SpO2: 93% (!) 5% 94% 93% Weight: Height: General: alert and oriented x 3 (person, place and date/time); no apparent distress HEENT: normocephalic atraumatic Neck: supple, no lymphadenopathy, no bruits, no JVD Lungs: clear to auscultation bilaterally Cardio: S1, S2, normal rate, regular; no murmurs, rubs or gallops Abdomen: non-distended : not examined Rectal: not examined Extremities: no clubbing, cyanosis, or edema Skin: no rashes Neuro: no focal deficits Medications: I have reviewed the patient's medications; see Medication Reconciliation. Labs: I have reviewed the patient's labs. ASSESSMENT AND PLAN Principal Problem: Complicated UTI (urinary tract infection) Active Problems: Malignant tumor of colon Mixed hyperlipidemia Essential hypertension Intractable nausea and vomiting Troponin I above reference range E46 Unspecified severe protein-calorie malnutrition UTI--sepsis. Per primary team. Troponin elevation--No acute EKG changes. No concerning chest pain. ECHO showed normal LVEF and wallmotion. Off heparin. Given her metastatic cancer, there is limited value for further ischemia workup. Likely type 2 DC. HTN--fluctuating Cancer--per primary team Eliza Segovia MD, FACC, FACP, ELPIDIO Schedule Analyst, Division of Cardiology [facility] Antonio Phipps RN - 04/17/2019 12:30 PM CSTCare Management Social Functional Assessment Patient Name: Selma Balderas Age: [age] year old Sex: female Patient's Previous Admission Date at [facility] HOSPITAL: 03/14/2019 Current diagnosis and co-morbidities: INTRACTABLE NAUSEA AND VOMITING Readmission Questions: Was patient discharged from any acute care hospital within the last 30 days: No Social Functional Assessment: Primary language spoken/preferred: Rwandan Mental Status: Alert & Oriented to Person,Place & Time Information given by: Self Patient's support system: Parent Name and number of support system: Selina Balderas mom [phone] Primary Operating Table Assembler: Self MPOA: Same as support system Living Arrangement: Home Address of living arrangement : [address] [place] [address] Persons living in home: Self Barriers to returning home: None Baseline functional status- ambulation: Independent Functional status-baseline personal care: Independent Baseline functional status- driving: Independent Baseline functional status- grocery shopping: Independent Functional status-baseline housekeeping: Independent Functional status-baseline meal prep: Independent Current functional status same as prior: Yes Do you have a PCP?: Yes Name of PCP: [facility] Agency: No Provider Services: No DME Company: No Equipment: None Hemodialysis: No Community resources utilized: None Funding Resources: Commercial Prescription coverage plan: [facility] where meds are filled: Other Other pharmacy: [facility] Anticipated services prior to disharge: Continue Medical Eval Expected mode of discharge transportation: Same as support system Additional Recommendations for DC: no Additional info required for discharge planning: Pending medical evaluation Recommended discharge plan: Home SFA Complete: Social Functional Assessment complete: Yes Alcohol Use Screening (AUDIT-C) How often do you have a drink containing alcohol?: Never SCORE: 0 Role of Care Management explained. Yes Any issues or concerns with obtaining/affording your medications at home: no. Are you or your support system able to picking tech medications at discharge: yes. Describe: Antonio Winslow RN, BSN [facility] ADC Sewing Inspector O [phone] Andrew Carter MD - 04/17/2019 12:18 PM CST [facility] Medicine Progress Note Name: Selma Balderas : 1965 Admit Date: 04/16/2019 PCP on file: Willian Loo ASSESSMENT: Selma Balderas is a 53 year old female with PLAN: # Sepsis with no end organ damange # Complicated UTI, recent placed Right PCN in March 2019 in [place] due to hydronephrosis and large pelvic mass, supposed to be exchanged in May 2018 - IV zosyn day 2 - IVF - F/u urine and blood cultures - D/w Urology/Dr. Goddard # Abdominal pain, n/v, persistent. Recurrent trips to the ER for the past 2-3 days. Failed outpatient treatment - CT abd/pelvis done, no obstruction - GI consult Dr. Fink - Symptomatic control - Possible related to metastatic disease and/or UTI - Zofran prn - reglan prn #Dyspnea, cough sometimes productive - Likely acute viral bronchitis - Influenza negative - Check procalcitonin, respiratory panel - CT chest done showing innumerable lung mets # Elevated troponins, likely type 2 nstemi - on heparin drip by ER on night of 04/16/2019, august d/c today if Echo unremarkable per cardiology - Cardiology consult Dr. Segovia - Telemetry, trend trops - Check lipid panel # low TSH, ?euthyroid syndrome - obtain free T4 # Metastatic colon cancer with mets to liver, pelvic mass, lungs b/l, omentum - Follows Dr. Norman oncology - Plan is to start chemo this week - Hx of colon cancer before that was treated with surgery and chemo but lost to follow up in between # Hypertension - Lisinopril 10 mg qd # Hyperlipidemia - Atorvastatin 40 mg qd Dispo: home VTE Prophylaxis: on heparin gtt Code Status: FC Electronically signed by: Andrew Gomez MD SUBJECTIVE/ 24-HOUR HOSPITAL EVENTS: 04/17: pain in abd and back, 09/12. Intermittent nausea. OBJECTIVE: Vital signs range: Temp: [36.8 C (98.3 F)-39.3 C (102.7 F)] 37.1 C (98.7 F) Pulse: [90-115] 102 Resp: [8-25] 18 BP: (119-174)/(64-107) 133/79 Most recent vital signs: BP 133/79 | Pulse 102 | Temp 37.1 C (98.7 F) (Temporal Artery) | Resp 18 | Ht 1.626 m (5' 4") | Wt 57 kg (125 lb 9.6 oz) | SpO2 93% | BMI 21.56 kg/ m I/O: I/O last 3 completed shifts: In: 125 [I.V.:125] Out: 100 [Urine:100] PHYSICAL EXAM: General: alert and oriented; no apparent distress HEENT: pupils equal, round, reactive to light; extraocular movements intact; oropharynx clear; moistmucous membranes Neck: supple, no lymphadenopathy, no bruits, no JVD Lungs: clear to auscultation bilaterally Cardio: S1, S2 normal; tachycardia; no murmurs, rubs or gallops Abdomen: soft; mild diffuse tender; non-distended; normoactive bowel sounds : right nephrostomy tube in place Extremities: no clubbing, cyanosis, or edema Skin: no rashes LABS: I reviewed all the relevant patient's new lab test results Recent Results (from the past 24 hour(s)) Lactic Acid Whole Blood Collection Time: 04/16/19 8:26 PM Result Value Ref Range LACTIC ACID 1.67 0.50 - 2.20 mmol/L COMP. METABOLIC PANEL (16704) Collection Time: 04/16/19 8:30 PM Result Value Ref Range NA 136 135 - 145 mmol/L K 3.6 3.5 - 5.0 mmol/L CL 98 98 - 108 mmol/L CO2 TOTAL 28 23 - 31 mmol/L AGAP 10 2 - 16 BUN 9 7 - 23 mg/dL GLUCOSE 133 (H) 70 - 110 mg/dL CREATININE 0.63 0.50 - 1.04 mg/dL TOTAL BILI 0.5 0.1 - 1.1 mg/dL CALCIUM 9.5 8.6 - 10.6 mg/dL T PROTEIN 7.6 6.3 - 8.2 g/dL ALBUMIN 4.1 3.5 - 5.0 g/dL ALK PHOS 238 (H) 34 - 122 U/L ALTv 25 5 - 35 U/L AST(SGOT) 56 (H) 13 - 40 U/L eGFR Calculation (Non-) 99.2 mL/min/1.73m2 eGFR Calculation () 120.3 mL/min/1.73m2 LIPASE Collection Time: 04/16/19 8:30 PM Result Value Ref Range LIPASE 120 0 - 220 U/L TROPONIN I Collection Time: 04/16/19 8:30 PM Result Value Ref Range TROPONIN I 0.102 (H) <=0.034 ng/mL CBC WITH DIFFERENTIAL Collection Time: 04/16/19 8:30 PM Result Value Ref Range WBC 8.59 4.30 - 11.10 10*3/L RBC 3.57 (L) 3.93 - 5.25 10*6/L HGB 10.2 (L) 11.6 - 15.0 g/dL HCT 32.3 (L) 35.7 - 45.2 % MCV 90.5 80.6 - 95.5 fL MCH 28.6 25.9 - 32.8 pg MCHC 31.6 31.6 - 35.1 g/dL RDW-SD 42.3 39.0 - 49.9 fL RDW-CV 12.7 12.0 - 15.5 % PLT 389 (H) 166 - 358 10*3/L MPV 10.0 9.5 - 12.9 fL NRBC/100 WBC 0.0 0.0 - 10.0 /100 WBCs NRBC x10^3 <0.01 10*3/L GRAN MAT (NEUT) % 85.0 % IMM GRAN % 1.40 % LYMPH % 7.7 % MONO % 5.7 % EOS % 0.0 % BASO % 0.2 % GRAN MAT x10^3(ANC) 7.30 (H) 1.88 - 7.09 10*3/uL IMM GRAN x10^3 0.12 (H) 0.00 - 0.06 10*3/uL LYMPH x10^3 0.66 (L) 1.32 - 3.29 10*3/uL MONO x10^3 0.49 0.33 - 0.92 10*3/uL EOS x10^3 <0.03 (L) 0.03 - 0.39 10*3/uL BASO x10^3 <0.03 0.01 - 0.07 10*3/uL BLOOD CULTURE SCREEN Collection Time: 04/16/19 8:30 PM Result Value Ref Range Blood Culture-Aerobic Culture In Progress No growth Blood Culture-Anaerobic Culture In Progress No growth GLYCOSYLATED HEMOGLOBIN (A1C) Collection Time: 04/16/19 8:30 PM Result Value Ref Range HGB A1C 6.3 (H) 4.0 - 6.0 % NGSP LIPID PANEL (91153)(TOTAL CHOLESTEROL, TRIGLYCERIDES, HDL) Collection Time: 04/16/19 8:30 PM Result Value Ref Range CHOL 222 (H) 120 - 200 mg/dL HDL 41 (L) >50 mg/dL HDLC RATIO 5.4 (H) <=4.5 TRIG 140 30 - 170 mg/dL LDL CHOL 153 <=160 mg/dL VLDL 28 5 - 60 mg/dL THYROID STIMULATING HORMONE Collection Time: 04/16/19 8:30 PM Result Value Ref Range TSH 0.37 (L) 0.45 - 4.70 mIU/L ADC,CLC OR LCC ONLY - INFLUENZA A & B DIRECT ANTIGEN Collection Time: 04/16/19 8:35 PM Result Value Ref Range Influenza A Negative Negative Influenza B Negative Negative URINALYSIS Collection Time: 04/16/19 8:42 PM Result Value Ref Range APPEARANCE Clear Clear COLOR Yellow Yellow PH 7.0 4.8 - 8.0 SP GRAVITY 1.013 1.003 - 1.030 GLU U QUAL Normal Normal BLOOD 2+ (A) Negative KETONES 20 mg/dL (A) Negative PROTEIN 100 mg/dL (A) Negative UROBILIN Normal Normal BILIRUBIN Negative Negative NITRITE Positive (A) Negative LEUK ADILENE 500/uL (A) Negative RBC/HPF 130 (H) 0 - 3 HPF WBC/HPF 11 (H) 0 - 5 HPF BACTERIA Few (A) Negative BLOOD CULTURE SCREEN Collection Time: 04/16/19 8:42 PM Result Value Ref Range Blood Culture-Aerobic Culture In Progress No growth Blood Culture-Anaerobic Culture In Progress No growth Prothrombin Time (PT) / INR Collection Time: 04/16/19 9:35 PM Result Value Ref Range PROTIME PATIENT 13.8 12.0 - 14.7 Seconds INR 1.1 aPTT Collection Time: 04/16/19 9:35 PM Result Value Ref Range APTT Patient 34 23 - 38 Seconds PROCALCITONIN Collection Time: 04/17/19 3:33 AM Result Value Ref Range Procalcitonin 0.24 (H) <0.07 ng/mL CBC WITH DIFFERENTIAL Collection Time: 04/17/19 3:33 AM Result Value Ref Range WBC 8.06 4.30 - 11.10 10*3/L RBC 3.02 (L) 3.93 - 5.25 10*6/L HGB 8.8 (L) 11.6 - 15.0 g/dL HCT 27.4 (L) 35.7 - 45.2 % MCV 90.7 80.6 - 95.5 fL MCH 29.1 25.9 - 32.8 pg MCHC 32.1 31.6 - 35.1 g/dL RDW-SD 43.6 39.0 - 49.9 fL RDW-CV 13.4 12.0 - 15.5 % PLT 319 166 - 358 10*3/L MPV 10.6 9.5 - 12.9 fL NRBC/100 WBC 0.0 0.0 - 10.0 /100 WBCs NRBC x10^3 <0.01 10*3/L GRAN MAT (NEUT) % 77.9 % IMM GRAN % 1.00 % LYMPH % 12.8 % MONO % 8.2 % EOS % 0.0 % BASO % 0.1 % GRAN MAT x10^3(ANC) 6.28 1.88 - 7.09 10*3/uL IMM GRAN x10^3 0.08 (H) 0.00 - 0.06 10*3/uL LYMPH x10^3 1.03 (L) 1.32 - 3.29 10*3/uL MONO x10^3 0.66 0.33 - 0.92 10*3/uL EOS x10^3 <0.03 (L) 0.03 - 0.39 10*3/uL BASO x10^3 <0.03 0.01 - 0.07 10*3/uL COMP. METABOLIC PANEL (14801) Collection Time: 04/17/19 3:33 AM Result Value Ref Range NA 137 135 - 145 mmol/L K 3.3 (L) 3.5 - 5.0 mmol/L CL 104 98 - 108 mmol/L CO2 TOTAL 24 23 - 31 mmol/L AGAP 9 2 - 16 BUN 7 7 - 23 mg/dL GLUCOSE 102 70 - 110 mg/dL CREATININE 0.56 0.50 - 1.04 mg/dL TOTAL BILI 0.2 0.1 - 1.1 mg/dL CALCIUM 8.0 (L) 8.6 - 10.6 mg/dL T PROTEIN 5.9 (L) 6.3 - 8.2 g/dL ALBUMIN 3.0 (L) 3.5 - 5.0 g/dL ALK PHOS 173 (H) 34 - 122 U/L ALTv 26 5 - 35 U/L AST(SGOT) 54 (H) 13 - 40 U/L eGFR Calculation (Non-) 113.7 mL/min/1.73m2 eGFR Calculation () 137.8 mL/min/1.73m2 TROPONIN I Collection Time: 04/17/19 3:33 AM Result Value Ref Range TROPONIN I 0.165 (H) <=0.034 ng/mL N-TERMINAL PRO-BNP Collection Time: 04/17/19 3:33 AM Result Value Ref Range NT-proBNP 1,730 (H) <=125 pg/mL MAGNESIUM Collection Time: 04/17/19 3:33 AM Result Value Ref Range MAGNESIUM 1.8 1.7 - 2.4 mg/dL PHOSPHORUS Collection Time: 04/17/19 3:33 AM Result Value Ref Range PHOSPHORUS 2.9 2.5 - 5.0 mg/dL aPTT (for use with Heparin Practice Guideline). Note: Draw and Send all Lab STAT. Collection Time: 04/17/19 3:35 AM Result Value Ref Range APTT Patient 44 (H) 23 - 38 Seconds TROPONIN I Collection Time: 04/17/19 11:46 AM Result Value Ref Range TROPONIN I 0.186 (H) <=0.034 ng/mL IMAGING: I reviewed all the relevant patient's new radiology test results Hospital Encounter on 04/16/19 CT CHEST PULMONARY ANGIOGRAM Narrative Indication: Chest pain, short of breath Comparison: Chest radiograph dated 04/16/2019 Technique: CTA of the chest was performed following the administration of intravenous contrast material. Three-dimensional reformats were generated following completion of the exam. CT scan was performed according to ALARA (as low as reasonably achievable) policy. Findings: The visualized thyroid gland is within normal limits. There is no thoracic aortic aneurysm or dissection. The heart is normal in size without significant pericardial effusion. No filling defect is appreciated in the pulmonary arteries to the level of the distal segmental arteries. There are multiple enlarged mediastinal and hilar lymph nodes, with subcarinal nodes measuring up to 28 mm, right hilar nodes measuring up to 24 mm and left hilar nodes measuring up to 21 mm. Right internal jugular port catheter terminates in the SVC. There are innumerable pulmonary nodules in the lungs bilaterally with largest in the left upper lobe measuring 24 mm and largest in the right lower lobe measuring 29 mm. There is dependent atelectasis without other superimposed pulmonary process. Bone windows through the chest demonstrate no osseous destructive lesion. Impression Impression: No CTA evidence for pulmonary embolus. Mediastinal lymphadenopathy as above. Innumerable pulmonary nodules in the lungs bilaterally, most consistent with neoplasm. Mild dependent atelectasis in the lungs bilaterally. RL: 460 AF: [id number] ABDOMEN PELVIS W CONTRAST Narrative Indication: Nausea and vomiting, generalized abdominal pain COMPARISON: None available TECHNIQUE: Axial images of the abdomen and pelvis are performed following administration of intravenous contrast material. Images were reformatted in the coronal and sagittal plane. CT scan was performed according to ALARA (as low as reasonably achievable) policy. FINDINGS: There are multiple hypoattenuating lesions in the liver, the largest in the medial dome measuring 2.8 cm. The gallbladder, spleen, adrenal glands and pancreas are within normal limits. The left kidney is unremarkable. A right nephrostomy tube is in place, with only mild fullness of the right collecting system. There is some mucosal enhancement in the right proximal ureter. There is no abdominal aortic aneurysm or dissection. There is trace free fluid in the pelvis. There is a large heterogeneously enhancing mass contiguous with the uterus and right ovary, measuring 10.1 x 6.2 x 9.1 cm. There are multiple metastatic implants in the inferior pelvis (series 11, image 139 and in the anterior omentum. The patient is status post partial resection of the proximal colon. There is no bowel obstruction. Bone windows through the abdomen and pelvis demonstrate no osseous destructive lesion. Impression Multiple hypoattenuating lesions in the liver, the largest of which measures 2.8 cm, concerning for hepatic metastatic disease. Right-sided percutaneous nephrostomy tube with only mild fullness of the right collecting system. There is some mild mucosal enhancement in the right proximal ureter, with slightly heterogeneous enhancement of the renal parenchyma. Urinary tract infection would be in the differential. Large heterogeneously enhancing mass contiguous with the uterus and right ovary, measuring 10.1 cm, consistent with neoplasm. Multiple metastatic implants in the pelvis and omentum. Status post partial bowel resection without bowel obstruction or anastomotic leak. RL: 460 AFC: [id number] CHEST 1 VW Narrative Indication: Chest pain Comparison: None available Findings: Single AP view of the chest. The cardiopericardial silhouette is within normal limits. Right internal jugular port catheter is in place, with tip in the distal SVC. There is a large nodule in the medial left lung apex, measuring 22 mm. There are multiple smaller nodules throughout the lungs bilaterally, predominantly in the lower lungs.. The visualized bony thorax is intact. Impression Impression: 22 mm nodule in the medial left lung apex, with multiple smaller nodules throughout the lungs bilaterally, most notably in the lower lobes. Comparison with prior films is recommended to evaluate for interval change. RL: 460 AFC: [id number] CATIONS: I reviewed the current inpatient medications ordered Current Facility-Administered Medications Medication Dose Route Frequency Last Rate Last Dose piperacillin-tazobactam (ZOSYN) 3.375 g in NaCl 0.9% (NS) 100 mL MINI-BAG 3.375 g IV Piggyback Q6H ABX 3.375 g at 04/17/19 1033 atorvastatin (LIPITOR) tablet 40 mg 40 mg Oral QHS docusate (COLACE) capsule 100 mg 100 mg Oral BID 100 mg at 04/17/19 0857 famotidine (PEPCID AC) tablet 20 mg 20 mg Oral BID 20 mg at 04/17/19 0857 heparin (1,000 unit/mL, 10 mL vial) for Rebolusing 3,000 Units Slow IV Push FOR REBOLUSING heparin 25,000 unit/250 mL (Premixed Bag) in D5W weight based dosing ACS protocol 12 Units/kg/hr IV Infusion CONTINUOUS 7.2 mL/hr at 04/17/19 0710 720 Units/hr at 04/17/19 0710 lactobacillus acidophilus (ACIDOPHILLUS) 25 million cell -100 mg captab 1 tablet 1 tablet Oral BID 1 tablet at 04/17/19 0857 lisinopril (PRINIVIL,ZESTRIL) tablet 10 mg 10 mg Oral DAILY 10 mg at 0857 metoclopramide HCl (REGLAN) injection 10 mg 10 mg Slow IV Push Q6HPRN morpHINE injection 2 mg 2 mg Slow IV Push Q4HPRN 2 mg at 04/17/19 1214 morphine IR (MSIR) tablet 15 mg 15 mg Oral Q12H 15 mg at 04/17/19 0857 NaCl 0.9% (NS) IV infusion 1,000 mL 1,000 mL IV Infusion CONTINUOUS 125 mL/ hr at 04/17/19 1033 1,000 mL at 04/17/19 1033 ondansetron (ZOFRAN (PF)) injection 4 mg 4 mg Slow IV Push Q6HPRN 4 mg at 04/17/19 0602 sennosides (SENOKOT) tablet 8.6 mg 8.6 mg Oral BID 8.6 mg at 04/17/19 0857 anessa Camejo - 04/17/2019 11:36 AM CST Medical Nutrition Therapy - Progress Note: Reason For Consultation: sales mgr for positive initial nutrition screen: Decreased intake Admission Chief Complaint: Chief Complaint Patient presents with Vomiting Problem List/Diagnosis: Problem List Items Addressed This Visit None Visit Diagnoses Fever, unspecified fever cause - Primary Intractable vomiting with nausea, unspecified vomiting type Generalized abdominal pain Dehydration Shortness of breath Elevated troponin Urinary tract infection associated with nephrostomy catheter, initial encounter Sepsis, due to unspecified organism, unspecified whether acute organ dysfunction present Nutrition Assessment PMH/PSH: Past Medical History: Diagnosis Date Abnormal liver enzymes 02/20/2019 Blood pressure elevated without history of HTN 02/12/2019 Cardiac arrest 2015 after chemo treatment History of colon cancer 03/14/2019 Hydronephrosis 03/15/2019 Intraabdominal mass 04/07/2019 Irritability and anger 02/12/2019 Malignant neoplasm of colon, unspecified part of colon 02/12/2019 Malignant tumor of colon 09/21/2014 Menopausal state 02/12/2019 Mixed hyperlipidemia 02/20/2019 Primary malignant neoplasm of hepatic flexure of colon metastatic to intra- abdominal lymph node 02/24/2019 Reactive depression 02/12/2019 GI and Nutrition Related Findings: GI Symptoms: Nausea, Vomiting and Abdominal Pain Difficulty Chewing/Swallowing: N/A GI tract alteration: N/A Alternative means of nutrition: N/A General: N/A Medications: Current Facility-Administered Medications: piperacillin-tazobactam (ZOSYN) 3.375 g in NaCl 0.9% (NS) 100 mL MINI-BAG, 3.375 g, IV Piggyback, Q6H Tere JAMESON Adnan, MD, 3.375 g at 04/17/19 1033 atorvastatin (LIPITOR) tablet 40 mg, 40 mg, Oral, QHS, Bao Carranza MD docusate (COLACE) capsule 100 mg, 100 mg, Oral, BID, Bao Carranza MD, 100 mg at 04/17/19 0857 famotidine (PEPCID AC) tablet 20 mg, 20 mg, Oral, BID, Bao Carranza MD, 20 mg at 04/17/19 0857 heparin (1,000 unit/mL, 10 mL vial) for Rebolusing, 3,000 Units, Slow IV Push, FOR REBOLUSING, Uday Ivey FNP heparin 25,000 unit/250 mL (Premixed Bag) in D5W weight based dosing ACS protocol, 12 Units/kg/hr, IV Infusion, CONTINUOUS, Uday Ivey FNP, Last Rate: 7.2 mL/hr at 04/17/19 0710, 720 Units/hr at 04/17/19 0710 lactobacillus acidophilus (ACIDOPHILLUS) 25 million cell -100 mg captab 1 tablet, 1 tablet, Oral, BID, Bao Carranza MD, 1 tablet at 04/17/19 0857 lisinopril (PRINIVIL,ZESTRIL) tablet 10 mg, 10 mg, Oral, DAILY, Bao Carranza MD, 10 mg at 04/17/19 0857 metoclopramide HCl (REGLAN) injection 10 mg, 10 mg, Slow IV Push, Q6HPRN, Bao Carranza MD morpHINE injection 2 mg, 2 mg, Slow IV Push, Q4HPRN, Bao Carranza MD, 2 mg at 04/17/19 0749 morphine IR (MSIR) tablet 15 mg, 15 mg, Oral, Q12H, Bao Carranza MD, 15 mg at 04/17/19 0857 NaCl 0.9% (NS) IV infusion 1,000 mL, 1,000 mL, IV Infusion, CONTINUOUS, Bao Carranza MD, Last Rate: 125 mL/hr at 04/17/19 1033, 1,000 mL at 04/17/19 1033 ondansetron (ZOFRAN (PF)) injection 4 mg, 4 mg, Slow IV Push, Q6HPRN, Bao Carranza MD, 4 mg at 04/17/19 0602 sennosides (SENOKOT) tablet 8.6 mg, 8.6 mg, Oral, BID, Bao Carranza MD, 8.6 mg at 04/17/19 0857 Lab and Medical Test Results: NA (mmol/L) Date Value 04/17/2019 137 K (mmol/L) Date Value 04/17/2019 3.3 (L) CALCIUM (mg/dL) Date Value 04/17/2019 8.0 (L) ALBUMIN (g/dL) Date Value 04/17/2019 3.0 (L) PHOSPHORUS (mg/dL) Date Value 04/17/2019 2.9 CL (mmol/L) Date Value 04/17/2019 104 BUN (mg/dL) Date Value 04/17/2019 7 CREATININE (mg/dL) Date Value 04/17/2019 0.56 GLUCOSE (mg/dL) Date Value 04/17/2019 102 HGB A1C (% NGSP) Date Value 04/16/2019 6.3 (H) CO2 TOTAL (mmol/L) Date Value 04/17/2019 24 T PROTEIN (g/dL) Date Value 04/17/2019 5.9 (L) ALT(SGPT) (U/L) Date Value 11/11/2017 26 ALTv (U/L) Date Value 04/17/2019 26 AST(SGOT) (U/L) Date Value 04/17/2019 54 (H) No results found for: CRP WBC (10*3/L) Date Value 04/17/2019 8.06 Intake/Output Summary (Last 24 hours) at 04/17/2019 1138 Last data filed at 04/17/2019 1034 Gross per 24 hour Intake 175 ml Output 100 ml Net 75 ml Antropometric: Age: [age] year old Sex: female Ht: 5'5" Ht Readings from Last 3 Encounters: 04/17/19 1.626 m (5' 4") 04/07/19 1.651 m (5' 5") 03/17/19 1.651 m (5' 5") Current Wt: 125lb/57kg BMI: Body mass index is 21.56 kg/m. IBW for Ht: 125/lb 57 kg %IBW: 100% Weight History: Wt Readings from Last 10 Encounters: 04/17/19 57 kg (125 lb 9.6 oz) 04/07/19 54.9 kg (121 lb 1.6 oz) 03/17/19 60.3 kg (133 lb) 02/24/19 60.6 kg (133 lb 9.6 oz) 02/10/19 60.1 kg (132 lb 9.6 oz) 11/11/17 55.8 kg (123 lb) Current Dietary Order(s): Orders Placed This Encounter Procedures Regular Diet; Texture: Regular. EMR documented food allergies/intolerance/cultural preferences: No known food allergies Nutrition Focused Physical Exam- See SGA flowsheet for details Hyperglycemia and Increased HR (>90) Nutritional Diagnosis: Severe protein-calorie malnutrition SGA Rating: Mild / Moderate Nutrition/Related History: Last bowel movement (LBM)per patient report: 04/16 Ms. Balderas is a 53 y/o female with PMH including stage 4 colon cancer, elevated blood pressure, cardiac arrest, intraabdominal mass admitted to the hospital related to abdominal pain, nausea, vomiting. Principal problems for this admission include sepsis with no end organ damage, abdominal pain. 04/17: Per Ms. Balderas and her mother, patient has not eaten for ~ 1 week. She states he UBW is 130lbs. She ate <25% of breakfast, still complains of nausea /some emesis. Per mother, patient more easily tolerates soft/bland foods. Requested beef broth, yogurt, ice cream, and juice for lunch. Ms. Balderas isstarting to feel slightly better, drinking more water today than past several days per mother. Per EMR, patient with 7% weight loss in 4 months. Pt says she used to drink Ensure but recently, she started having emesis while drinking it and currently has an aversion. Calculated Daily Nutritional Needs: Calories: 1735-6751 kcal/day=25-30 kcal/kg current weight (57kg) Protein: 68-86 g/day=18 % of kcal need/day=1.2-1.5 g/kg current weight Fluid: 1800 mL/day or per MD; adjust per acute needs Nutrition Diagnosis: PES #1: Severe malnutrition related to acute disease/illness as evidenced by 7% body weight loss in 4 months, moderate muscle mass loss, moderate body fat loss , muscle weakness, <50% PO intake >5days PES #2: Inadequate oral intake related to nausea/vomiting/abdominal pain as evidenced by RD observation, patient report, mother report Nutrition Interventions: 1. customer service voice staff notified of patient food preferences 2. Encourage adequate oral intake 3. Monitor p.o. Intake/tolerance Goals: 1. Patient will tolerate > 50% of provided meals Nutrition Monitoring and Evaluation: A registered dietitian will f/u as indicated to review patients progress toward nutriton goals, report nutrition related information, and revise the nutrition recommendations and interventions. Please call with any question or concerns, thank-you. Discharge Needs: Consume diet adequate in protein and calories Vanessa Camejo, MPH, RD, LD Clinical Dietitian Office: [phone] documented in this encounter Plan of Treatment Date Type Specialty Care Team Description 04/27/2019 Office Visit Family Medicine Willian Loo MD [address] [place] [address] Dr Jaramillo [address] [place] [phone] 05/24/2019 Appointment Radiology Mike Bonilla MD [address] [place] [address] [phone] 07/07/2019 Office Visit Family Medicine Willian Loo MD [address] [place] [address] Dr Jaramillo [address] [place] [phone] Name Type Priority Associated Diagnoses Date/Time BLOOD CULTURE SCREEN LAB STAT Fever, unspecified fever 04/16/2019 8:30 PM CUSHION SEWER cause BLOOD CULTURE SCREEN LAB STAT Fever, unspecified fever 04/16/2019 8:42 PM CUSHION SEWER cause Name Type Priority Associated Diagnoses Order Schedule aPTT (for use with LAB Routine Elevated troponin FOR FOLLOW-UP TESTING until [facility] discontinued starting Guideline). Note: 04/16/2019, 1 completed Draw and Send all Lab STAT. URINE CULTURE LAB ANNAMARIA ANNAMARIA for 1 Occurrences starting 04/16/2019 until 04/16/2019 BLOOD CULTURE SCREEN LAB ANNAMARIA ANNAMARIA for 1 Occurrences starting 04/16/2019 until 04/16/2019 TROPONIN I LAB Routine EVERY 6 HOURS (START TIME ADJUSTABLE) START TIME ADJUSTABLE for 4 Occurrences starting 04/16/2019 until 04/17/2019, 2 completed Health Maintenance Due Date Last Done Comments DTaP,Tdap,and Td Vaccines (1 - Tdap) 1977 PAP SMEAR 07/01/1987 Breast Cancer Screening (MAMMOGRAM) 2006 COLONOSCOPY 2016 Zoster Recombinant Vaccine (SHINGRIX) (1 of 2) 2016 INFLUENZA VACCINE (#1) 2018 PNEUMOCOCCAL 0-64 YEARS COMBINED SERIES (2 of 3 - 02/11/2020 02/10/2019 PCV13) documented as of this encounter Implants Implanted Type Area [id number] Analyst Device Shelf Model / Identifier Expiration Date Serial / Lot Port-11/12/2014 Port Right: Implanted: 11/12/2014 (Quantity not on file) Chest documented as of this encounter Procedures Procedure Name Priority Date/Time Associated Comments Diagnosis BASIC METABOLIC PANEL Routine 04/21/2019 4:12 Results for this (NA, K, CL, CO2, AM CUSHION SEWER procedure are in GLUCOSE, BUN, the results CREATININE, CA) section. PHOSPHORUS Routine 04/21/2019 4:12 Results for this AM CUSHION SEWER procedure are in the results section. BASIC METABOLIC PANEL Routine 04/20/2019 4:55 Results for this (NA, K, CL, CO2, AM CUSHION SEWER procedure are in GLUCOSE, BUN, the results CREATININE, CA) section. CBC WITH DIFFERENTIAL Routine 04/19/2019 4:17 Elevated troponin Results for this AM CUSHION SEWER procedure are in the results section. CBC WITH DIFFERENTIAL Routine 04/19/2019 4:17 Elevated troponin Results for this AM CUSHION SEWER procedure are in the results section. COMP. METABOLIC PANEL Routine 04/19/2019 4:17 Results for this (72000) AM CUSHION SEWER procedure are in the results section. TROPONIN I Routine 04/19/2019 4:17 Results for this AM CUSHION SEWER procedure are in the results section. CBC WITH DIFFERENTIAL Routine 04/18/2019 4:16 Elevated troponin Results for this AM CUSHION SEWER procedure are in the results section. N-TERMINAL PRO-BNP Routine 04/18/2019 4:16 Results for this AM CUSHION SEWER procedure are in the results section. ACTIVATED PARTIAL Routine 04/18/2019 4:16 Results for this THRMPLAS LEON AM CUSHION SEWER procedure are in the results section. CBC WITH DIFFERENTIAL Routine 04/18/2019 4:16 Elevated troponin Results for this AM CUSHION SEWER procedure are in the results section. COMP. METABOLIC PANEL Routine 04/18/2019 4:16 Results for this (97097) AM CUSHION SEWER procedure are in the results section. TROPONIN I Routine 04/18/2019 4:16 Results for this AM CUSHION SEWER procedure are in the results section. MAGNESIUM Routine 04/18/2019 4:16 Results for this AM CUSHION SEWER procedure are in the results section. PHOSPHORUS Routine 04/18/2019 4:16 Results for this AM CUSHION SEWER procedure are in the results section. TROPONIN I Routine 04/17/2019 5:44 Results for this PM CUSHION SEWER procedure are in the results section. ACTIVATED PARTIAL Routine 04/17/2019 1:06 Results for this THRMPLAS LEON PM CUSHION SEWER procedure are in the results section. TROPONIN I Routine 04/17/2019 11:46 Results for this AM CUSHION SEWER procedure are in the results section. ECHO ROUTINE W/DOPPLER Routine 04/17/2019 8:49 Elevated troponin COLOR AM CUSHION SEWER ACTIVATED PARTIAL Routine 04/17/2019 3:35 Elevated troponin Results for this THRMPLAS LEON AM CUSHION SEWER procedure are in the results section. RESPIRATORY PANEL BY ANNAMARIA 04/17/2019 3:33 Results for this PCR AM CUSHION SEWER procedure are in the results section. CBC WITH DIFFERENTIAL Routine 04/17/2019 3:33 Elevated troponin Results for this AM CUSHION SEWER procedure are in the results section. PROCALCITONIN ANNAMARIA 04/17/2019 3:33 Results for this AM CUSHION SEWER procedure are in the results section. N-TERMINAL PRO-BNP Routine 04/17/2019 3:33 Results for this AM CUSHION SEWER procedure are in the results section. CBC WITH DIFFERENTIAL Routine 04/17/2019 3:33 Elevated troponin Results for this AM CUSHION SEWER procedure are in the results section. COMP. METABOLIC PANEL Routine 04/17/2019 3:33 Results for this (66706) AM CUSHION SEWER procedure are in the results section. FREE T4 Add-on 04/17/2019 3:33 Results for this AM CUSHION SEWER procedure are in the results section. TROPONIN I Routine 04/17/2019 3:33 Results for this AM CUSHION SEWER procedure are in the results section. MAGNESIUM Routine 04/17/2019 3:33 Results for this AM CUSHION SEWER procedure are in the results section. PHOSPHORUS Routine 04/17/2019 3:33 Results for this AM CUSHION SEWER procedure are in the results section. CT CHEST PULMONARY STAT 04/16/2019 9:59 Shortness of breath Results for this ANGIOGRAM PM CUSHION SEWER procedure are in the results section. CT ABDOMEN PELVIS W STAT 04/16/2019 9:59 Fever, unspecified Results for this CONTRAST PM CUSHION SEWER fever cause procedure are in Intractable the results vomiting with section. nausea, unspecified vomiting type Generalized abdominal pain Dehydration ACTIVATED PARTIAL STAT 04/16/2019 9:35 Elevated troponin Results for this THRMPLAS LEON PM CUSHION SEWER procedure are in the results section. PROTHROMBIN TIME / INR STAT 04/16/2019 9:35 Elevated troponin Results for this PM CUSHION SEWER procedure are in the results section. EKG-12 LEAD Routine 04/16/2019 8:58 PM CUSHION SEWER XR CHEST 1 VW STAT 04/16/2019 8:49 Fever, unspecified Results for this PM CUSHION SEWER fever cause procedure are in Intractable the results vomiting with section. nausea, unspecified vomiting type Generalized abdominal pain Dehydration EKG-12 LEAD ANNAMARIA 04/16/2019 8:45 PM CUSHION SEWER URINE CULTURE STAT 04/16/2019 8:42 Fever, unspecified Results for this PM CUSHION SEWER fever cause procedure are in Intractable the results vomiting with section. nausea, unspecified vomiting type Generalized abdominal pain Dehydration URINALYSIS STAT 04/16/2019 8:42 Fever, unspecified Results for this PM CUSHION SEWER fever cause procedure are in Intractable the results vomiting with section. nausea, unspecified vomiting type Generalized abdominal pain Dehydration BLOOD CULTURE SCREEN STAT 04/16/2019 8:42 Fever, unspecified PM CUSHION SEWER fever cause ADC,CLC OR LCC ONLY - STAT 04/16/2019 8:35 Fever, unspecified Results for this INFLUENZA A & B DIRECT PM CUSHION SEWER fever cause procedure are in ANTIGEN the results section. CBC WITH DIFFERENTIAL STAT 04/16/2019 8:30 Fever, unspecified Results for this PM CUSHION SEWER fever cause procedure are in Intractable the results vomiting with section. nausea, unspecified vomiting type Generalized abdominal pain Dehydration GLYCOSYLATED Add-on 04/16/2019 8:30 Results for this HEMOGLOBIN (A1C) PM CUSHION SEWER procedure are in the results section. CBC WITH DIFFERENTIAL Routine 04/16/2019 8:30 Fever, unspecified Results for this PM CUSHION SEWER fever cause procedure are in Intractable the results vomiting with section. nausea, unspecified vomiting type Generalized abdominal pain Dehydration LIPID PANEL Add-on 04/16/2019 8:30 Results for this ([id number])(TOTAL PM CUSHION SEWER procedure are in CHOLESTEROL, the results TRIGLYCERIDES, HDL) section. COMP. METABOLIC PANEL STAT 04/16/2019 8:30 Fever, unspecified Results for this ([id number]) PM CUSHION SEWER fever cause procedure are in Intractable the results vomiting with section. nausea, unspecified vomiting type Generalized abdominal pain Dehydration THYROID STIMULATING Add-on 04/16/2019 8:30 Results for this HORMONE PM CUSHION SEWER procedure are in the results section. TROPONIN I STAT 04/16/2019 8:30 Fever, unspecified Results for this PM CUSHION SEWER fever cause procedure are in Intractable the results vomiting with section. nausea, unspecified vomiting type Generalized abdominal pain Dehydration LIPASE STAT 04/16/2019 8:30 Fever, unspecified Results for this PM CUSHION SEWER fever cause procedure are in Intractable the results vomiting with section. nausea, unspecified vomiting type Generalized abdominal pain Dehydration BLOOD CULTURE SCREEN STAT 04/16/2019 8:30 Fever, unspecified PM CUSHION SEWER fever cause LACTIC ACID WHOLE STAT 04/16/2019 8:26 Fever, unspecified Results for this BLOOD PM CUSHION SEWER fever cause procedure are in Intractable the results vomiting with section. nausea, unspecified vomiting type Generalized abdominal pain Dehydration NOTICE OF PRIVACY Routine 04/16/2019 8:04 PRACTICES PM CUSHION SEWER CONSENT/REFUSAL FOR Routine 04/16/2019 8:03 DIAGNOSIS AND PM CUSHION SEWER TREATMENT documented in this encounter Results PHOSPHORUS (04/21/2019 4:12 AM CUSHION SEWER) PHOSPHORUS 2.3 (L) 2.5 - 5.0 mg/dL [facility] Specimen Blood - ARM, LEFT Performing Organization Address City/State/Zipcode Phone Number [facility] CLIA: [id number], [address] [place] [address] BASIC METABOLIC PANEL (NA, K, CL, CO2, GLUCOSE, BUN, CREATININE, CA) (2019 4:12 AM CUSHION SEWER) NA 135 135 - 145 [facility] mmol/L [facility] K 3.5 3.5 - 5.0 [facility] mmol/L [facility] CL 100 98 - 108 mmol/L [facility] CO2 TOTAL 29 23 - 31 mmol/L [facility] AGAP 6 2 - 16 [facility] BUN 5 (L) 7 - 23 mg/dL [facility] GLUCOSE 93 70 - 110 mg/dL [facility] CREATININE 0.49 (L) 0.50 - 1.04 [facility] mg/dL [facility] CALCIUM 8.5 (L) 8.6 - 10.6 [facility] mg/dL [facility] eGFR Calculation 132.6 mL/min/1.73m2 [facility] ([facility] [place]) eGFR Calculation 160.7 mL/min/1.73m2 [facility] () [facility] Specimen Blood - ARM, LEFT Narrative Performed At Association of Glomerular Filtration Rate (GFR) [facility] and Staging of Kidney Disease* + + +- + | GFR (mL/min/1.73 m2) | With Kidney Damage | Without Kidney Damage + + +- + | >90 | Stage one | Normal + + +- + | 60-89 | Stage two | Decreased GFR + + +- + | 30-59 | Stage three | Stage three + + +- + | 15-29 | Stage four | Stage four + + +- + | <15 (or dialysis) | Stage five | Stage five + + +- + *Each stage assumes the associated GFR level has been in effect for at least three months. Stages 1 to 5, with or without kidney disease, indicate chronic kidney disease. Notes: Determination of stages one and two (with eGFR >59mL/min/1.73 m2) requires estimation of kidney damage for at least three months as defined by structural or functional abnormalities of the kidney, manifested by either: Pathological abnormalities or Markers of kidney damage (including abnormalities in the composition of the blood or urine or abnormalities in imaging tests). Performing Organization Address City/State/Zipcode Phone Number [facility] CLIA: [id number], [address] [place] [address] BASIC METABOLIC PANEL (NA, K, CL, CO2, GLUCOSE, BUN, CREATININE, CA) (2019 4:55 AM CUSHION SEWER) NA 137 135 - 145 [facility] mmol/L [facility] K 3.1 (L) 3.5 - 5.0 [facility] mmol/L [facility] CL 100 98 - 108 mmol/L [facility] CO2 TOTAL 30 23 - 31 mmol/L [facility] AGAP 7 2 - 16 [facility] BUN 5 (L) 7 - 23 mg/dL [facility] GLUCOSE 96 70 - 110 mg/dL [facility] CREATININE 0.54 0.50 - 1.04 [facility] mg/dL [facility] CALCIUM 8.1 (L) 8.6 - 10.6 [facility] mg/dL [facility] eGFR Calculation 118.6 mL/min/1.73m2 [facility] [place]) eGFR Calculation 143.7 mL/min/1.73m2 [facility] () [facility] Specimen Blood - VENOUS Narrative Performed At Association of Glomerular Filtration Rate (GFR) [facility] and Staging of Kidney Disease* + + +- + | GFR (mL/min/1.73 m2) | With Kidney Damage | Without Kidney Damage + + +- + | >90 | Stage one | Normal + + +- + | 60-89 | Stage two | Decreased GFR + + +- + | 30-59 | Stage three | Stage three + + +- + | 15-29 | Stage four | Stage four + + +- + | <15 (or dialysis) | Stage five | Stage five + + +- + *Each stage assumes the associated GFR level has been in effect for at least three months. Stages 1 to 5, with or without kidney disease, indicate chronic kidney disease. Notes: Determination of stages one and two (with eGFR >59mL/min/1.73 m2) requires estimation of kidney damage for at least three months as defined by structural or functional abnormalities of the kidney, manifested by either: Pathological abnormalities or Markers of kidney damage (including abnormalities in the composition of the blood or urine or abnormalities in imaging tests). Performing Organization Address City/State/Zipcode Phone Number [facility] CLIA: [id number], [address] [place] [address] CBC WITH DIFFERENTIAL (04/19/2019 4:17 AM CUSHION SEWER) WBC 7.22 4.30 - 11.10 [facility] 10*3/L [facility] RBC 2.81 (L) 3.93 - 5.25 [facility] 10*6/L [facility] HGB 8.2 (L) 11.6 - 15.0 [facility] g/dL [facility] HCT 25.7 (L) 35.7 - 45.2 % [facility] MCV 91.5 80.6 - 95.5 fL [facility] MCH 29.2 25.9 - 32.8 pg [facility] MCHC 31.9 31.6 - 35.1 [facility] g/dL HOSPITAL LABORATORY RDW-SD 44.6 39.0 - 49.9 fL [facility] RDW-CV 13.4 12.0 - 15.5 % [facility] PLT 342 166 - 358 [facility] 10*3/L HOSPITAL LABORATORY MPV 10.3 9.5 - 12.9 fL [facility] NRBC/100 WBC 0.0 0.0 - 10.0 /100 [facility] WBCs [facility] NRBC x10^3 <0.01 10*3/L [facility] GRAN MAT (NEUT) % 72.4 % [facility] IMM GRAN % 1.10 % [facility] LYMPH % 17.9 % [facility] MONO % 7.6 % [facility] EOS % 0.7 % [facility] BASO % 0.3 % [facility] GRAN MAT x10^3(ANC) 5.23 1.88 - 7.09 [facility] 10*3/uL [facility] IMM GRAN x10^3 0.08 (H) 0.00 - 0.06 [facility] 10*3/uL [facility] LYMPH x10^3 1.29 (L) 1.32 - 3.29 [facility] 10*3/uL [facility] MONO x10^3 0.55 0.33 - 0.92 [facility] 10*3/uL [facility] EOS x10^3 0.05 0.03 - 0.39 [facility] 10*3/uL [facility] BASO x10^3 <0.03 0.01 - 0.07 [facility] 10*3/uL [facility] Specimen Blood - ARM, LEFT Performing Organization Address City/State/Zipcode Phone Number [facility] CLIA: [id number], [address] [place] [address] TROPONIN I (04/19/2019 4:17 AM CUSHION SEWER) TROPONIN I 0.052 (H) <=0.034 ng/mL [facility] Specimen Blood - ARM, LEFT Narrative Performed At Equal or Less than 0.034 ng/ml---Normal [facility] Note: Cardiac troponin begins to rise 3-4 hours after the onset of ischemia. Repeat in 4-6 hours if the sample was drawn within 3-4 hours of the onset of the symptom and found normal. Between 0.035 and 0.120 ng/mL--- Borderline. Questionable myocardial injury or necrosis Note: Serial measurement may be necessary to confirm or exclude the diagnosis of myocardial injury or necrosis; Clinical correlation (symptoms, EKGs, imaging studies, and others) required; Repeat in 4-6 hours if clinically indicated. Equal or Higher than 0.121 ng/mL---Abnormal. Myocardial Injury or Necrosis Likely Biotin has been reported to cause a negative bias, interpret results relative to patient's use of biotin. Performing Organization Address City/State/Zipcode Phone Number [facility] CLIA: [id number], [address] [place] [address] COMP. METABOLIC PANEL (82273) (04/19/2019 4:17 AM CUSHION SEWER) NA 134 (L) 135 - 145 [facility] mmol/L [facility] K 3.1 (L) 3.5 - 5.0 [facility] mmol/L [facility] CL 101 98 - 108 mmol/L [facility] CO2 TOTAL 27 23 - 31 mmol/L [facility] AGAP 6 2 - 16 [facility] BUN 5 (L) 7 - 23 mg/dL [facility] GLUCOSE 87 70 - 110 mg/dL [facility] CREATININE 0.47 (L) 0.50 - 1.04 [facility] mg/dL [facility] TOTAL BILI 0.4 0.1 - 1.1 mg/dL [facility] CALCIUM 7.9 (L) 8.6 - 10.6 [facility] mg/dL [facility] T PROTEIN 5.6 (L) 6.3 - 8.2 g/dL [facility] ALBUMIN 2.7 (L) 3.5 - 5.0 g/dL [facility] ALK PHOS 263 (H) 34 - 122 U/L [facility] ALTv 35 5 - 35 U/L [facility] AST(SGOT) 49 (H) 13 - 40 U/L [facility] eGFR Calculation 139.2 mL/min/1.73m2 [facility] ([facility] LABORATORY [place]) eGFR Calculation 168.7 mL/min/1.73m2 [facility] ([facility]) [facility] Specimen Blood - ARM, LEFT Narrative Performed At Association of Glomerular Filtration Rate (GFR) [facility] and Staging of Kidney Disease* + + +- + | GFR (mL/min/1.73 m2) | With Kidney Damage | Without Kidney Damage + + +- + | >90 | Stage one | Normal + + +- + | 60-89 | Stage two | Decreased GFR + + +- + | 30-59 | Stage three | Stage three + + +- + | 15-29 | Stage four | Stage four + + +- + | <15 (or dialysis) | Stage five | Stage five + + +- + *Each stage assumes the associated GFR level has been in effect for at least three months. Stages 1 to 5, with or without kidney disease, indicate chronic kidney disease. Notes: Determination of stages one and two (with eGFR >59mL/min/1.73 m2) requires estimation of kidney damage for at least three months as defined by structural or functional abnormalities of the kidney, manifested by either: Pathological abnormalities or Markers of kidney damage (including abnormalities in the composition of the blood or urine or abnormalities in imaging tests). Performing Organization Address City/State/Zipcode Phone Number [facility] CLIA: [id number], [address] [place] [address] CBC WITH DIFFERENTIAL (04/18/2019 4:16 AM CUSHION SEWER) WBC 9.21 4.30 - 11.10 [facility] 10*3/L [facility] RBC 2.86 (L) 3.93 - 5.25 [facility] 10*6/L [facility] HGB 8.3 (L) 11.6 - 15.0 [facility] g/dL [facility] HCT 26.4 (L) 35.7 - 45.2 % [facility] MCV 92.3 80.6 - 95.5 fL [facility] MCH 29.0 25.9 - 32.8 pg [facility] MCHC 31.4 (L) 31.6 - 35.1 [facility] g/dL [facility] RDW-SD 46.1 39.0 - 49.9 fL [facility] RDW-CV 13.6 12.0 - 15.5 % [facility] PLT 280 166 - 358 [facility] 10*3/L HOSPITAL LABORATORY MPV 10.3 9.5 - 12.9 fL [facility] NRBC/100 WBC 0.0 0.0 - 10.0 /100 [facility] WBCs [facility] NRBC x10^3 <0.01 10*3/L [facility] GRAN MAT (NEUT) % 74.5 % [facility] IMM GRAN % 1.00 % [facility] LYMPH % 13.8 % [facility] MONO % 10.3 % [facility] EOS % 0.1 % [facility] BASO % 0.3 % [facility] GRAN MAT x10^3(ANC) 6.86 1.88 - 7.09 [facility] 10*3/uL [facility] IMM GRAN x10^3 0.09 (H) 0.00 - 0.06 [facility] 10*3/uL [facility] LYMPH x10^3 1.27 (L) 1.32 - 3.29 [facility] 10*3/uL [facility] MONO x10^3 0.95 (H) 0.33 - 0.92 [facility] 10*3/uL [facility] EOS x10^3 <0.03 (L) 0.03 - 0.39 [facility] 10*3/uL [facility] BASO x10^3 0.03 0.01 - 0.07 [facility] 103/uL [facility] Specimen Blood - ARM, LEFT Performing Organization Address [facility] Phone Number [facility] CLIA: [id number], [address] [place] [address] MAGNESIUM (04/18/2019 4:16 AM CUSHION SEWER) MAGNESIUM 1.9 1.7 - 2.4 mg/dL [facility] Specimen Blood - ARM, LEFT Performing Organization Address [facility] [place] Phone Number [facility] CLIA: [id number], [address] [place] [address] aPTT (04/18/2019 4:16 AM CUSHION SEWER) APTT Patient 40 (H) 23 - 38 Seconds [facility] Specimen Blood - ARM, LEFT Narrative Performed At The [facility] patient population mean normal value [facility] for aPTT is 30 seconds. Performing Organization Address [facility] Phone Number [facility] CLIA: [id number], [address] [place] [address] PHOSPHORUS (04/18/2019 4:16 AM CUSHION SEWER) PHOSPHORUS 1.7 (L) 2.5 - 5.0 mg/dL [facility] Specimen Blood - ARM, LEFT Performing Organization Address [facility] Phone Number [facility] CLIA: [id number], [address] [place] [address] N-TERMINAL PRO-BNP (04/18/2019 4:16 AM CUSHION SEWER) NT-proBNP 2,860 (H) <=125 pg/mL [facility] Specimen Blood - ARM, LEFT Narrative Performed At Biotin has been reported to cause a negative [facility] bias, interpret results relative to patient's use of biotin. Performing Organization Address [facility] Phone Number [facility] CLIA: [id number], [id number] TROPONIN I (04/18/2019 4:16 AM CUSHION SEWER) TROPONIN I 0.097 (H) <=0.034 ng/mL [facility]OR[facility] Specimen Blood - ARM, LEFT Narrative Performed At Equal or Less than 0.034 ng/ml---Normal [facility] Note: Cardiac troponin begins to rise 3-4 hours after the onset of ischemia. Repeat in 4-6 hours if the sample was drawn within 3-4 hours of the onset of the symptom and found normal. Between 0.035 and 0.120 ng/mL--- Borderline. Questionable myocardial injury or necrosis Note: Serial measurement may be necessary to confirm or exclude the diagnosis of myocardial injury or necrosis; Clinical correlation (symptoms, EKGs, imaging studies, and others) required; Repeat in 4-6 hours if clinically indicated. Equal or Higher than 0.121 ng/mL---Abnormal. Myocardial Injury or Necrosis Likely Biotin has been reported to cause a negative bias, interpret results relative to patient's use of biotin. Performing Organization Address City/State/Zipcode Phone Number [facility] CLIA: [id number], [address] [place] [address] COMP. METABOLIC PANEL ([id number]) (04/18/2019 4:16 AM CUSHION SEWER) NA 135 135 - 145 [facility] mmol/L [facility] K 3.6 3.5 - 5.0 [facility] mmol/L [facility] CL 105 98 - 108 mmol/L [facility] CO2 TOTAL 22 (L) 23 - 31 mmol/L [facility] AGAP 8 2 - 16 [facility] BUN 8 7 - 23 mg/dL [facility] GLUCOSE 94 70 - 110 mg/dL [facility] CREATININE 0.60 0.50 - 1.04 [facility] mg/dL [facility] TOTAL BILI 0.3 0.1 - 1.1 mg/dL [facility] CALCIUM 8.1 (L) 8.6 - 10.6 [facility] mg/dL [facility] T PROTEIN 5.8 (L) 6.3 - 8.2 g/dL [facility] ALBUMIN 2.9 (L) 3.5 - 5.0 g/dL [facility] ALK PHOS 287 (H) 34 - 122 U/L [facility] ALTv 41 (H) 5 - 35 U/L [facility] AST(SGOT) 56 (H) 13 - 40 U/L [facility] eGFR Calculation 105.0 mL/min/1.73m2 [facility] ([facility] LABORATORY [place]) eGFR Calculation 127.2 mL/min/1.73m2 [facility] ([facility]) [facility] Specimen Blood - ARM, LEFT Narrative Performed At Association of Glomerular Filtration Rate (GFR) [facility] LABORATORY and Staging of Kidney Disease* + + +- + | GFR (mL/min/1.73 m2) | With Kidney Damage | Without Kidney Damage + + +- + | >90 | Stage one | Normal + + +- + | 60-89 | Stage two | Decreased GFR + + +- + | 30-59 | Stage three | Stage three + + +- + | 15-29 | Stage four | Stage four + + +- + | <15 (or dialysis) | Stage five | Stage five + + +- + *Each stage assumes the associated GFR level has been in effect for at least three months. Stages 1 to 5, with or without kidney disease, indicate chronic kidney disease. Notes: Determination of stages one and two (with eGFR >59mL/min/1.73 m2) requires estimation of kidney damage for at least three months as defined by structural or functional abnormalities of the kidney, manifested by either: Pathological abnormalities or Markers of kidney damage (including abnormalities in the composition of the blood or urine or abnormalities in imaging tests). Performing Organization Address [facility] Phone Number [facility] CLIA: [id number], [address] [place] [address] TROPONIN I (04/17/2019 5:44 PM CUSHION SEWER) TROPONIN I 0.224 (H) <=0.034 ng/mL [facility]OR[facility] Specimen Blood - ARM, LEFT Narrative Performed At Equal or Less than 0.034 ng/ml---Normal [facility] Note: Cardiac troponin begins to rise 3-4 hours after the onset of ischemia. Repeat in 4-6 hours if the sample was drawn within 3-4 hours of the onset of the symptom and found normal. Between 0.035 and 0.120 ng/mL--- Borderline. Questionable myocardial injury or necrosis Note: Serial measurement may be necessary to confirm or exclude the diagnosis of myocardial injury or necrosis; Clinical correlation (symptoms, EKGs, imaging studies, and others) required; Repeat in 4-6 hours if clinically indicated. Equal or Higher than 0.121 ng/mL---Abnormal. Myocardial Injury or Necrosis Likely Biotin has been reported to cause a negative bias, interpret results relative to patient's use of biotin. Performing Organization Address [facility] Centercode Phone Number [facility] CLIA: [id number], [address] [place] [id number] aPTT (04/17/2019 1:06 PM CUSHION SEWER) APTT Patient 51 (H) 23 - 38 Seconds [facility] LABORATORY Specimen Blood - ARM, LEFT Narrative Performed At The [facility] patient population mean normal value [facility] LABOR[facility]ORY for aPTT is 30 seconds. Performing Organization Address [facility] Centercode Phone Number [facility] CLIA: [id number], [address] [place] [id number] TROPONIN I (04/17/2019 11:46 AM CUSHION SEWER) [facility] TROPONIN I 0.186 (H) <=0.034 ng/mL [facility] LABORATORY Specimen Blood - ARM, LEFT Narrative Performed At Equal or Less than 0.034 ng/ml---Normal [facility] Note: Cardiac troponin begins to rise 3-4 hours after the onset of ischemia. Repeat in 4-6 hours if the sample was drawn within 3-4 hours of the onset of the symptom and found normal. Between 0.035 and 0.120 ng/mL--- Borderline. Questionable myocardial injury or necrosis Note: Serial measurement may be necessary to confirm or exclude the diagnosis of myocardial injury or necrosis; Clinical correlation (symptoms, EKGs, imaging studies, and others) required; Repeat in 4-6 hours if clinically indicated. Equal or Higher than 0.121 ng/mL---Abnormal. Myocardial Injury or Necrosis Likely Biotin has been reported to cause a negative bias, interpret results relative to patient's use of biotin. Performing Organization Address City/[facility]/Zipcode Phone Number [facility] CLIA: [id number], [address] [place], [place] [address] LABORATORY [address] aPTT (for use with Heparin Practice Guideline). Note: Draw and Send all Lab STAT. (04/17/2019 3:35 AM CUSHION SEWER) [facility] APTT Patient 44 (H) 23 - 38 Seconds [facility] LABORATORY Specimen Blood - VENOUS Narrative Performed At The [facility] patient population mean normal value [facility] LABORATORY for aPTT is 30 seconds. Performing Organization Address City/State/Zipcode Phone Number [facility] CLIA: [id number], [address] [place] [address] FREE T4 (04/17/2019 3:33 AM CUSHION SEWER) [facility] FREE T4 1.58 0.78 - 2.20 ng/dL: [facility] LABORATORY SERVICES Specimen Blood - VENOUS Performing Organization Address City/State/Zipcode Phone Number [facility] CLIA: [id number], [address] [place], [place] [address] [facility] CBC WITH DIFFERENTIAL (04/17/2019 3:33 AM CUSHION SEWER) WBC 8.06 4.30 - 11.10 [facility] 10*3/L HOSPITAL LABORATORY RBC 3.02 (L) 3.93 - 5.25 [facility] 10*6/L [facility]ITAL LAB[facility]ORY HGB 8.8 (L) 11.6 - 15.0 [facility] g/dL HOSPITAL LABORATORY HCT 27.4 (L) 35.7 - 45.2 % [facility] LABOR[facility]ORY MCV 90.7 80.6 - 95.5 fL [facility] LABOR[facility]ORY MCH 29.1 25.9 - 32.8 pg [facility] LABORATORY MCHC 32.1 31.6 - 35.1 [facility] g/dL [facility] RDW-SD 43.6 39.0 - 49.9 fL [facility] LABOR[facility]ORY RDW-CV 13.4 12.0 - 15.5 % [facility] LABORATORY PLT 319 166 - 358 [facility] 10*3/L [facility] MPV 10.6 9.5 - 12.9 fL [facility] LABOR[facility]ORY NRBC/100 WBC 0.0 0.0 - 10.0 /100 [facility] WBCs [facility] NRBC x10^3 <0.01 10*3/L [facility] LABORATORY GRAN MAT (NEUT) % 77.9 % [facility] LABORATORY IMM GRAN % 1.00 % [facility] LYMPH % 12.8 % [facility] MONO % 8.2 % [facility] EOS % 0.0 % [facility] BASO % 0.1 % [facility] LABORATORY GRAN MAT x10^3(ANC) 6.28 1.88 - 7.09 [facility] 10*3/uL HOSPITAL LABORATORY IMM GRAN x10^3 0.08 (H) 0.00 - 0.06 [facility] 10*3/uL HOSPITAL LAB[facility]ORY LYMPH x10^3 1.03 (L) 1.32 - 3.29 [facility] 10*3/uL [facility]ITAL LAB[facility]ORY MONO x10^3 0.66 0.33 - 0.92 [facility] 10*3/uL [facility]ITAL LAB[facility]ORY EOS x10^3 <0.03 (L) 0.03 - 0.39 [facility] 10*3/uL [facility]ITAL LAB[facility]ORY BASO x10^3 <0.03 0.01 - 0.07 [facility] 10*3/uL [facility] Specimen Blood - VENOUS Performing Organization Address [facility]/Zipcode Phone Number [facility] CLIA: [id number], [address] [place] [address] RESPIRATORY PANEL BY PCR (04/17/2019 3:33 AM CUSHION SEWER) Adenovirus Negative Negative [facility] Coronavirus HKU1 Negative Negative [facility] Coronavirus NL63 Negative Negative [facility] Coronavirus 229E Negative Negative [facility] Coronavirus OC43 Negative Negative [facility] Human Metapneumovirus Negative Negative [facility] Human Negative Negative [facility] Rhinovirus/Enterovirus SERVICES Influenza A Negative Negative [facility] Influenza B Negative Negative [facility] Parainfluenza Virus 1 Negative Negative [facility] Parainfluenza Virus 2 Negative Negative [facility] Parainfluenza Virus 3 Negative Negative [facility] Parainfluenza Virus 4 Negative Negative [facility] Respiratory Syncytial Negative Negative [facility] Virus SERVICES Bordetella parapertussis Negative Negative [facility] Bordetella pertussis Negative Negative [facility] Chlamydia pneumoniae Negative Negative [facility] Mycoplasma pneumoniae Negative Negative [facility] Specimen Swab - NASOPHARYNGEAL SWAB Narrative Performed At Negative: [facility] A negative result does not rule-out infection. This assay does not test for all potential infectious agents. Positive: A positive test result does not necessarily indicate the presence of viable organism. Performing Organization Address City/State/Zipcode Phone Number [facility] CLIA: [id number], [address] [place] [id number] [facility] PHOSPHORUS (04/17/2019 3:33 AM CUSHION SEWER) PHOSPHORUS 2.9 2.5 - 5.0 mg/dL [facility] LABOR[facility]ORY Specimen Blood - VENOUS Performing Organization Address City/[facility]/Zipcode Phone Number [facility] CLIA: [id number], [address] [place] [address] MAGNESIUM (04/17/2019 3:33 AM CUSHION SEWER) MAGNESIUM 1.8 1.7 - 2.4 mg/dL [facility] LABOR[facility]ORY Specimen Blood - VENOUS Performing Organization Address City/[facility]ercode Phone Number [facility] CLIA: [id number], [address] [place] [address] N-TERMINAL PRO-BNP (04/17/2019 3:33 AM CUSHION SEWER) NT-proBNP 1,730 (H) <=125 pg/mL [facility] LABORATORY Specimen Blood - VENOUS Narrative Performed At Biotin has been reported to cause a negative [facility] LABOR[facility] bias, interpret results relative to patient's use of biotin. Performing Organization Address [facility] Cent[facility]osc Phone Number [facility] CLIA: [id number], [address] [place] [address] TROPONIN I (04/17/2019 3:33 AM CUSHION SEWER) Pathologist [facility] TROPONIN I 0.165 (H) <=0.034 ng/mL [facility]OR[facility] Specimen Blood - VENOUS Narrative Performed At Equal or Less than 0.034 ng/ml---Normal [facility] Note: Cardiac troponin begins to rise 3-4 hours after the onset of ischemia. Repeat in 4-6 hours if the sample was drawn within 3-4 hours of the onset of the symptom and found normal. Between 0.035 and 0.120 ng/mL--- Borderline. Questionable myocardial injury or necrosis Note: Serial measurement may be necessary to confirm or exclude the diagnosis of myocardial injury or necrosis; Clinical correlation (symptoms, EKGs, imaging studies, and others) required; Repeat in 4-6 hours if clinically indicated. Equal or Higher than 0.121 ng/mL---Abnormal. Myocardial Injury or Necrosis Likely Biotin has been reported to cause a negative bias, interpret results relative to patient's use of biotin. Performing Organization Address City/[facility] Centercode Phone Number [facility] CLIA: [id number], [address] [place] [address] COMP. METABOLIC PANEL ([id number]) (04/17/2019 3:33 AM CUSHION SEWER) NA 137 135 - 145 [facility] mmol/L [facility] K 3.3 (L) 3.5 - 5.0 [facility] mmol/L HOSPITAL LABORATORY CL 104 98 - 108 mmol/L [facility] CO2 TOTAL 24 23 - 31 mmol/L [facility] AGAP 9 2 - 16 [facility] BUN 7 7 - 23 mg/dL [facility] GLUCOSE 102 70 - 110 mg/dL [facility] CREATININE 0.56 0.50 - 1.04 [facility] mg/dL [facility] TOTAL BILI 0.2 0.1 - 1.1 mg/dL [facility] CALCIUM 8.0 (L) 8.6 - 10.6 [facility] mg/dL [facility] T PROTEIN 5.9 (L) 6.3 - 8.2 g/dL [facility] ALBUMIN 3.0 (L) 3.5 - 5.0 g/dL [facility] LABORATORY ALK PHOS 173 (H) 34 - 122 U/L [facility] ALTv 26 5 - 35 U/L [facility] AST(SGOT) 54 (H) 13 - 40 U/L [facility] LABOR[facility]ORY eGFR Calculation 113.7 mL/min/1.73m2 [facility] [place]) eGFR Calculation 137.8 mL/min/1.73m2 [facility] ([facility]) [facility] Specimen Blood - VENOUS Narrative Performed At Association of Glomerular Filtration Rate (GFR) [facility] LABORATORY and Staging of Kidney Disease* + + +- + | GFR (mL/min/1.73 m2) | With Kidney Damage | Without Kidney Damage + + +- + | >90 | Stage one | Normal + + +- + | 60-89 | Stage two | Decreased GFR + + +- + | 30-59 | Stage three | Stage three + + +- + | 15-29 | Stage four | Stage four + + +- + | <15 (or dialysis) | Stage five | Stage five + + +- + *Each stage assumes the associated GFR level has been in effect for at least three months. Stages 1 to 5, with or without kidney disease, indicate chronic kidney disease. Notes: Determination of stages one and two (with eGFR >59mL/min/1.73 m2) requires estimation of kidney damage for at least three months as defined by structural or functional abnormalities of the kidney, manifested by either: Pathological abnormalities or Markers of kidney damage (including abnormalities in the composition of the blood or urine or abnormalities in imaging tests). Performing Organization Address City/State/Zipcode Phone Number [facility] [id number], [address] [place] [address] PROCALCITONIN (04/17/2019 3:33 AM CUSHION SEWER) Procalcitonin 0.24 (H) <0.07 ng/mL [facility] SERVICES Specimen Blood - VENOUS Narrative Performed At INTERPRETATION OF PROCALCITONIN RESULTS IN ADULTS >=18 YEARS [facility] SERVICES OF AGE Initiation and discontinuation of antibiotics on patients with suspected or confirmed Lower Respiratory Tract Infection in Adults >=18 years of age. + + + + + |Procalcitonin |Interpretation |Antibiotic |Considerations |ng/mL | |recommendation | + + + + + | <0.1 | Bacterial | Strongly | | | infection very | discouraged | Overruling: | | unlikely | | Clinically unstable + + + + High risk for adverse | <0.25 | Bacterial | Discouraged | outcome | | infection | | SEE IMPORTANT NOTE | | unlikely | | + + + + + | >=0.25 | Bacterial | Encouraged | | | infection | | | | likely | | Consider treatment failure + + + + if levels does not decrease | >0.5 | Bacterial | Strongly | appropriately | | infection very | encouraged | | | likely | | + + + + + Discontinuation of antibiotics in high-acuity patients with suspected or confirmed sepsis in Adults >=18 years of age. + + + + + |Procalcitonin |Interpretation |Antibiotic |Considerations |ng/mL | |recommendation | + + + + + | <0.25 | Bacterial | Strongly | | | infection very | discouraged | Overruling: | | unlikely | | Clinically unstable + + + + High risk for adverse | <0.5 or drop | Bacterial | Discouraged | outcome | >80% from | infection | | SEE IMPORTANT NOTE | highest PCT | unlikely | | | level | | | + + + + + | >=0.5 | Bacterial | Encouraged | | | infection | | | | likely | | Consider treatment failure + + + + if levels does not decrease | >1.0 | Bacterial | Strongly | appropriately | | infection very | encouraged | | | likely | | + + + + + Percentage of drop of Procalcitonin calculation for Discontinuation of antibiotics in high-acuity patients with suspected or confirmed sepsis in Adults >=18 years of age. Procalcitonin highest{}-Procalcitonin current{} Delta Procalcitonin= _ x100% Procalcitonin current {} IMPORTANT NOTE: Procalcitonin may be elevated without bacterial infection by physiologic stress related to trauma, cohen, chronic dialysis, metastatic cancer, surgery in the past seven days, malaria, some fungal infections, and some forms of vasculitis. The interpretation algorithm may not apply to patients with immunosuppression (equivalent of >10 mg of prednisone daily), HIV with CD4 cell count < 350 cells/mm3, active malignancy on systemic chemotherapy, solid organ transplant or hematopoietic stem cell transplantation, or hospital acquired pneumonia. Additionally, some clinical trials of procalcitonin have excluded patients with shock requiring vasopressor use, acute respiratory failure requiring mechanical ventilation, or those with known lung abscess/empyema. For further information please refer to: [email or web address] Performing Organization Address City/State/Zipcode Phone Number [facility] CLIA: [id number], [address] [place] [address] [phone] [facility] CT CHEST PULMONARY ANGIOGRAM (04/16/2019 9:59 PM CUSHION SEWER) Specimen Impressions Performed At Impression: PACS/VR/DOSE No CTA evidence for pulmonary embolus. Mediastinal lymphadenopathy as above. Innumerable pulmonary nodules in the lungs bilaterally, most consistent with neoplasm. Mild dependent atelectasis in the lungs bilaterally. RL: [id number] AFC: [id number] Narrative Performed At Indication: Chest pain, short of breath PACS/VR/DOSE Comparison: Chest radiograph dated 04/16/2019 Technique: CTA of the chest was performed following the administration of intravenous contrast material. Three-dimensional reformats were generated following completion of the exam. CT scan was performed according to ALARA (as low as reasonably achievable) policy. Findings: The visualized thyroid gland is within normal limits. There is no thoracic aortic aneurysm or dissection. The heart is normal in size without significant pericardial effusion. No filling defect is appreciated in the pulmonary arteries to the level of the distal segmental arteries. There are multiple enlarged mediastinal and hilar lymph nodes, with subcarinal nodes measuring up to 28 mm, right hilar nodes measuring up to 24 mm and left hilar nodes measuring up to 21 mm. Right internal jugular port catheter terminates in the SVC. There are innumerable pulmonary nodules in the lungs bilaterally with largest in the left upper lobe measuring 24 mm and largest in the right lower lobe measuring 29 mm. There is dependent atelectasis without other superimposed pulmonary process. Bone windows through the chest demonstrate no osseous destructive lesion. Procedure Note [facility], Radiant Results Inft User - 04/16/2019 10:23 PM CUSHION SEWER Indication: Chest pain, short of breath Comparison: Chest radiograph dated 04/16/2019 Technique: CTA of the chest was performed following the administration of intravenous contrast material. Three-dimensional reformats were generated following completion of the exam. CT scan was performed according to ALARA (as low as reasonably achievable) policy. Findings: The visualized thyroid gland is within normal limits. There is no thoracic aortic aneurysm or dissection. The heart is normal in size without significant pericardial effusion. No filling defect is appreciated in the pulmonary arteries to the level of the distal segmental arteries. There are multiple enlarged mediastinal and hilar lymph nodes, with subcarinal nodes measuring up to 28 mm, right hilar nodes measuring up to 24 mm and left hilar nodes measuring up to 21 mm. Right internal jugular port catheter terminates in the SVC. There are innumerable pulmonary nodules in the lungs bilaterally with largest in the left upper lobe measuring 24 mm and largest in the right lower lobe measuring 29 mm. There is dependent atelectasis without other superimposed pulmonary process. Bone windows through the chest demonstrate no osseous destructive lesion. IMPRESSION Impression: No CTA evidence for pulmonary embolus. Mediastinal lymphadenopathy as above. Innumerable pulmonary nodules in the lungs bilaterally, most consistent with neoplasm. Mild dependent atelectasis in the lungs bilaterally. RL: [id number] AFC: [id number] Performing Organization Address City/State/Zipcode Phone Number PACS/VR/DOSE CT ABDOMEN PELVIS W CONTRAST (04/16/2019 9:59 PM CUSHION SEWER) Specimen Impressions Performed At PACS/VR/DOSE Multiple hypoattenuating lesions in the liver, the largest of which measures 2.8 cm, concerning for hepatic metastatic disease. Right-sided percutaneous nephrostomy tube with only mild fullness of the right collecting system. There is some mild mucosal enhancement in the right proximal ureter, with slightly heterogeneous enhancement of the renal parenchyma. Urinary tract infection would be in the differential. Large heterogeneously enhancing mass contiguous with the uterus and right ovary, measuring 10.1 cm, consistent with neoplasm. Multiple metastatic implants in the pelvis and omentum. Status post partial bowel resection without bowel obstruction or anastomotic leak. RL: [id number] AFC: [id number] Narrative Performed At Indication: Nausea and vomiting, generalized abdominal pain PACS/VR/DOSE COMPARISON: None available TECHNIQUE: Axial images of the abdomen and pelvis are performed following administration of intravenous contrast material. Images were reformatted in the coronal and sagittal plane. CT scan was performed according to ALARA (as low as reasonably achievable) policy. FINDINGS: There are multiple hypoattenuating lesions in the liver, the largest in the medial dome measuring 2.8 cm. The gallbladder, spleen, adrenal glands and pancreas are within normal limits. The left kidney is unremarkable. A right nephrostomy tube is in place, with only mild fullness of the right collecting system. There is some mucosal enhancement in the right proximal ureter. There is no abdominal aortic aneurysm or dissection. There is trace free fluid in the pelvis. There is a large heterogeneously enhancing mass contiguous with the uterus and right ovary, measuring 10.1 x 6.2 x 9.1 cm. There are multiple metastatic implants in the inferior pelvis (series 11, image 139 and in the anterior omentum. The patient is status post partial resection of the proximal colon. There is no bowel obstruction. Bone windows through the abdomen and pelvis demonstrate no osseous destructive lesion. Procedure Note [facility], Radiant Results Inft User - 04/16/2019 10:32 PM CUSHION SEWER Indication: Nausea and vomiting, generalized abdominal pain COMPARISON: None available TECHNIQUE: Axial images of the abdomen and pelvis are performed following administration of intravenous contrast material. Images were reformatted in the coronal and sagittal plane. CT scan was performed according to ALARA (as low as reasonably achievable) policy. FINDINGS: There are multiple hypoattenuating lesions in the liver, the largest in the medial dome measuring 2.8 cm. The gallbladder, spleen, adrenal glands and pancreas are within normal limits. The left kidney is unremarkable. A right nephrostomy tube is in place, with only mild fullness of the right collecting system. There is some mucosal enhancement in the right proximal ureter. There is no abdominal aortic aneurysm or dissection. There is trace free fluid in the pelvis. There is a large heterogeneously enhancing mass contiguous with the uterus and right ovary, measuring 10.1 x 6.2 x 9.1 cm. There are multiple metastatic implants in the inferior pelvis (series 11, image 139 and in the anterior omentum. The patient is status post partial resection of the proximal colon. There is no bowel obstruction. Bone windows through the abdomen and pelvis demonstrate no osseous destructive lesion. IMPRESSION Multiple hypoattenuating lesions in the liver, the largest of which measures 2.8 cm, concerning for hepatic metastatic disease. Right-sided percutaneous nephrostomy tube with only mild fullness of the right collecting system. There is some mild mucosal enhancement in the right proximal ureter, with slightly heterogeneous enhancement of the renal parenchyma. Urinary tract infection would be in the differential. Large heterogeneously enhancing mass contiguous with the uterus and right ovary, measuring 10.1 cm, consistent with neoplasm. Multiple metastatic implants in the pelvis and omentum. Status post partial bowel resection without bowel obstruction or anastomotic leak. RL: [id number] AFC: [id number] Performing Organization Address City/State/Zipcode Phone Number PACS/VR/DOSE aPTT (04/16/2019 9:35 PM CUSHION SEWER) APTT Patient 34 23 - 38 Seconds [facility] Specimen Blood - VENOUS Narrative Performed At The [facility] patient population mean normal value [facility] for aPTT is 30 seconds. Performing Organization Address [facility] Phone Number [facility] CLIA: [id number], [address] [place] [id number] Prothrombin Time (PT) / INR (04/16/2019 9:35 PM CUSHION SEWER) PROTIME PATIENT 13.8 12.0 - 14.7 [facility] LABORATORY INR 1.1Comment: Normal [facility] INR <1.1; [facility] Therapeutic range LABORATORY 2.0 to 3.0 or 2.5 to 3.5, depending upon the indications. Specimen Blood - VENOUS Performing Organization Address [facility] Phone Number [facility] CLIA: [id number], [address] [place] [id number] XR CHEST 1 VW (04/16/2019 8:49 PM CUSHION SEWER) Specimen Impressions Performed At Impression: PACS/VR/DOSE 22 mm nodule in the medial left lung apex, with multiple smaller nodules throughout the lungs bilaterally, most notably in the lower lobes. Comparison with prior films is recommended to evaluate for interval change. RL: [id number] AFC: [id number] Narrative Performed At Indication: Chest pain PACS/VR/DOSE Comparison: None available Findings: Single AP view of the chest. The cardiopericardial silhouette is within normal limits. Right internal jugular port catheter is in place, with tip in the distal SVC. There is a large nodule in the medial left lung apex, measuring 22 mm. There are multiple smaller nodules throughout the lungs bilaterally, predominantly in the lower lungs.. The visualized bony thorax is intact. Procedure Note [facility], Radiant Results Inft User - 04/16/2019 9:14 PM CUSHION SEWER Indication: Chest pain Comparison: None available Findings: Single AP view of the chest. The cardiopericardial silhouette is within normal limits. Right internal jugular port catheter is in place, with tip in the distal SVC. There is a large nodule in the medial left lung apex, measuring 22 mm. There are multiple smaller nodules throughout the lungs bilaterally, predominantly in the lower lungs.. The visualized bony thorax is intact. IMPRESSION Impression: 22 mm nodule in the medial left lung apex, with multiple smaller nodules throughout the lungs bilaterally, most notably in the lower lobes. Comparison with prior films is recommended to evaluate for interval change. RL: [id number] AFC: [id number] Performing Organization Address City/State/Zipcode Phone Number PACS/VR/DOSE URINE CULTURE (04/16/2019 8:42 PM CUSHION SEWER) URINE CULTURE > 100,000 CFU/mL mixed [facility] aerobic organisms - SERVICES suggests endogenous microbial contamination Specimen Urine - URINE NEPHROSTOMY Performing Organization Address City/State/Zipcode Phone Number [facility] SERVICES CLIA: [id number], [address] [place] [address] [phone] [facility] URINALYSIS (04/16/2019 8:42 PM CUSHION SEWER) APPEARANCE Clear Clear [facility] COLOR Yellow Yellow [facility] PH 7.0 4.8 - 8.0 [facility] SP GRAVITY 1.013 1.003 - 1.030 [facility] GLU U QUAL Normal Normal [facility] BLOOD 2+ (A) Negative [facility] KETONES 20 mg/dL (A) Negative [facility] PROTEIN 100 mg/dL (A) Negative [facility] UROBILIN Normal Normal [facility] BILIRUBIN Negative Negative [facility] NITRITE Positive (A) Negative [facility] LEUK ADILENE 500/uL (A) Negative [facility] RBC/HPF 130 (H) 0 - 3 HPF [facility] WBC/HPF 11 (H) 0 - 5 HPF [facility] BACTERIA Few (A) Negative [facility] Specimen Urine - URINE NEPHROSTOMY Performing Organization Address [facility] Phone Number [facility] CLIA: [id number], [address] [place] [address] ADC,CLC OR LCC ONLY - INFLUENZA A & B DIRECT ANTIGEN (04/16/2019 8:35 PM CUSHION SEWER) Influenza A Negative Negative [facility] Influenza B Negative Negative [facility] Specimen Swab - NARE, LEFT SIDE Performing Organization Address [facility] Phone Number [facility] CLIA: [id number], [address] [place] [address] THYROID STIMULATING HORMONE (04/16/2019 8:30 PM CUSHION SEWER) TSH 0.37 (L) 0.45 - 4.70 mIU/L [facility] Specimen Blood - VENOUS Performing Organization Address [facility] Phone Number [facility] CLIA: [id number], [address] [place] [address] LIPID PANEL ([id number])(TOTAL CHOLESTEROL, TRIGLYCERIDES, HDL) (04/16/2019 8:30 PM CUSHION SEWER) CHOL 222 (H) 120 - 200 mg/dL [facility] HDL 41 (L) >50 mg/dL [facility] HDLC RATIO 5.4 (H) <=4.5 [facility] TRIG 140 30 - 170 mg/dL [facility] LDL CHOL 153 <=160 mg/dL [facility] VLDL 28 5 - 60 mg/dL [facility] Specimen Blood - VENOUS Performing Organization Address [facility] Phone Number [facility] CLIA: [id number], [address] [place] [address] GLYCOSYLATED HEMOGLOBIN (A1C) (04/16/2019 8:30 PM CUSHION SEWER) HGB A1C 6.3 (H) 4.0 - 6.0 % NGSP [facility] Specimen Blood - VENOUS Narrative Performed At %A1C (NGSP) Interpretation (ADA) [facility] 4.8-5.6 Normal or (Non-Diabetic Range) 5.7-6.4 Increased Risk (Pre-Diabetic) >6.5 Diabetes Indicated Performing Organization Address City/State/Zipcode Phone Number [facility] CLIA: [id number], [address] [place] [address] CBC WITH DIFFERENTIAL (04/16/2019 8:30 PM CUSHION SEWER) WBC 8.59 4.30 - 11.10 [facility] 10*3/L [facility] RBC 3.57 (L) 3.93 - 5.25 [facility] 10*6/L [facility] HGB 10.2 (L) 11.6 - 15.0 [facility] g/dL [facility] HCT 32.3 (L) 35.7 - 45.2 % [facility] MCV 90.5 80.6 - 95.5 fL [facility] MCH 28.6 25.9 - 32.8 pg [facility] MCHC 31.6 31.6 - 35.1 [facility] g/dL [facility] RDW-SD 42.3 39.0 - 49.9 fL [facility] RDW-CV 12.7 12.0 - 15.5 % [facility] PLT 389 (H) 166 - 358 [facility] 10*3/L [facility] MPV 10.0 9.5 - 12.9 fL [facility] NRBC/100 WBC 0.0 0.0 - 10.0 /100 [facility] WBCs [facility] NRBC x10^3 <0.01 10*3/L [facility] GRAN MAT (NEUT) % 85.0 % [facility] IMM GRAN % 1.40 % [facility] LYMPH % 7.7 % [facility] MONO % 5.7 % [facility] EOS % 0.0 % [facility] BASO % 0.2 % [facility] GRAN MAT x10^3(ANC) 7.30 (H) 1.88 - 7.09 [facility] 10*3/uL HOS[facility]ITAL [facility] IMM GRAN x10^3 0.12 (H) 0.00 - 0.06 [facility] 10*3/uL [facility] LYMPH x10^3 0.66 (L) 1.32 - 3.29 [facility] 10*3/uL [facility] MONO x10^3 0.49 0.33 - 0.92 [facility] 10*3/uL [facility] EOS x10^3 <0.03 (L) 0.03 - 0.39 [facility] 10*3/uL [facility] BASO x10^3 <0.03 0.01 - 0.07 [facility] 10*3/uL [facility] Specimen Blood - VENOUS Performing Organization Address City/[facility] Phone Number [facility] CLIA: [id number], [address] [place] [address] TROPONIN I (04/16/2019 8:30 PM CUSHION SEWER) TROPONIN I 0.102 (H) <=0.034 ng/mL [facility] Specimen Blood - VENOUS Narrative Performed At Equal or Less than 0.034 ng/ml---Normal [facility] Note: Cardiac troponin begins to rise 3-4 hours after the onset of ischemia. Repeat in 4-6 hours if the sample was drawn within 3-4 hours of the onset of the symptom and found normal. Between 0.035 and 0.120 ng/mL--- Borderline. Questionable myocardial injury or necrosis Note: Serial measurement may be necessary to confirm or exclude the diagnosis of myocardial injury or necrosis; Clinical correlation (symptoms, EKGs, imaging studies, and others) required; Repeat in 4-6 hours if clinically indicated. Equal or Higher than 0.121 ng/mL---Abnormal. Myocardial Injury or Necrosis Likely Biotin has been reported to cause a negative bias, interpret results relative to patient's use of biotin. Performing Organization Address City/[facility] Phone Number [facility] CLIA: [id number], [address] [place] [address] LIPASE (04/16/2019 8:30 PM CUSHION SEWER) LIPASE 120 0 - 220 U/L [facility] Specimen Blood - VENOUS Performing Organization Address City/[facility] Center[facility]ant[facility] Phone Number [facility] CLIA: [id number], [address] [place] [address] COMP. METABOLIC PANEL ([id number]) (04/16/2019 8:30 PM CUSHION SEWER) NA 136 135 - 145 [facility] mmol/L [facility] K 3.6 3.5 - 5.0 [facility] mmol/L [facility] CL 98 98 - 108 mmol/L [facility] CO2 TOTAL 28 23 - 31 mmol/L [facility] AGAP 10 2 - 16 [facility] BUN 9 7 - 23 mg/dL [facility] GLUCOSE 133 (H) 70 - 110 mg/dL [facility] CREATININE 0.63 0.50 - 1.04 [facility] mg/dL [facility] TOTAL BILI 0.5 0.1 - 1.1 mg/dL [facility] CALCIUM 9.5 8.6 - 10.6 [facility] mg/dL [facility] T PROTEIN 7.6 6.3 - 8.2 g/dL [facility] ALBUMIN 4.1 3.5 - 5.0 g/dL [facility] ALK PHOS 238 (H) 34 - 122 U/L [facility] ALTv 25 5 - 35 U/L [facility] AST(SGOT) 56 (H) 13 - 40 U/L [facility] eGFR Calculation 99.2 mL/min/1.73m2 [facility] ([facility] [place]) eGFR Calculation 120.3 mL/min/1.73m2 [facility] () [facility] Specimen Blood - VENOUS Narrative Performed At Association of Glomerular Filtration Rate (GFR) [facility] and Staging of Kidney Disease* + + +- + | GFR (mL/min/1.73 m2) | With Kidney Damage | Without Kidney Damage + + +- + | >90 | Stage one | Normal + + +- + | 60-89 | Stage two | Decreased GFR + + +- + | 30-59 | Stage three | Stage three + + +- + | 15-29 | Stage four | Stage four + + +- + | <15 (or dialysis) | Stage five | Stage five + + +- + *Each stage assumes the associated GFR level has been in effect for at least three months. Stages 1 to 5, with or without kidney disease, indicate chronic kidney disease. Notes: Determination of stages one and two (with eGFR >59mL/min/1.73 m2) requires estimation of kidney damage for at least three months as defined by structural or functional abnormalities of the kidney, manifested by either: Pathological abnormalities or Markers of kidney damage (including abnormalities in the composition of the blood or urine or abnormalities in imaging tests). Performing Organization Address City/State/Zipcode Phone Number [facility] CLIA: [id number], [address] [place] [address] Lactic Acid Whole Blood (04/16/2019 8:26 PM CUSHION SEWER) LACTIC ACID 1.67 0.50 - 2.20 mmol/L [facility] Specimen Blood - VENOUS Performing Organization Address [facility] Phone Number [facility] CLIA: [id number], [address] [place] [address] documented in this encounter Visit Diagnoses Diagnosis Fever, unspecified fever cause Intractable vomiting with nausea, unspecified vomiting type Generalized abdominal pain Abdominal pain, generalized Dehydration Shortness of breath Elevated troponin Other abnormal blood chemistry Urinary tract infection associated with nephrostomy catheter, initial encounter Sepsis, due to unspecified organism, unspecified whether acute organ dysfunction present Malignant neoplasm of colon, unspecified part of colon Essential hypertension Unspecified essential hypertension Mixed hyperlipidemia Troponin I above reference range Other abnormal blood chemistry E46 Unspecified severe protein-calorie malnutrition documented in this encounter Administered Medications Medication Order MAR Action Action Date Dose Rate Site atorvastatin (LIPITOR) tablet 40 Given 04/20/2019 10:54 PM CUSHION SEWER 40 mg mg 40 mg, Oral, QHS, First dose on Wed04/17/19 at 2100, Until Discontinued, Routine Given 04/19/2019 8:19 PM CUSHION SEWER 40 mg Given 04/18/2019 8:13 PM CUSHION SEWER 40 mg docusate (COLACE) capsule 100 mg Given 04/21/2019 9:38 AM CUSHION SEWER 100 mg 100 mg, Oral, BID, First dose on Wed04/17/19 at 0800, Until Discontinued, Routine Given 04/20/2019 10:54 PM CUSHION SEWER 100 mg Given 04/20/2019 9:12 AM CUSHION SEWER 100 mg enoxaparin (LOVENOX) injection 40 mg Given 04/21/2019 9:38 AM CUSHION SEWER 40 mg Abdomen-SC 40 mg, Subcutaneous, DAILY, First dose on Wed04/21/19 at 0900, Until Discontinued, Routine famotidine (PEPCID AC) tablet 20 mg Given 04/21/2019 9:38 AM CUSHION SEWER 20 mg 20 mg, Oral, BID, First dose on Wed04/17/19 at 0800, Until Discontinued, Routine Given 04/20/2019 10:54 PM CUSHION SEWER 20 mg Given 04/20/2019 9:12 AM CUSHION SEWER 20 mg heparin (1,000 unit/mL, 10 mL vial) for Rebolusing FOR REBOLUSING, Starting [place] 04/16/19 at 2128, Until Discontinued, Routine, Dosing based on aPTT testing parameters (refer to continuous heparin drip order)., lactobacillus acidophilus (ACIDOPHILLUS) Given 04/21/2019 9:38 AM CUSHION SEWER 1 tablet 25 million cell -100 mg captab 1 tablet 1 tablet, Oral, BID, First dose on Wed04/16/19 at 2345, Until Discontinued, Routine Given 04/20/2019 10:54 PM CUSHION SEWER 1 tablet Given 04/20/2019 9:12 AM CUSHION SEWER 1 tablet lisinopril (PRINIVIL,ZESTRIL) tablet 10 mg Given 04/21/2019 9:41 AM CUSHION SEWER 10 mg 10 mg, Oral, DAILY, First dose on Wed04/17/19 at 0900, Until Discontinued, Routine Given 04/20/2019 9:12 AM CUSHION SEWER 10 mg Given 04/19/2019 8:29 AM CUSHION SEWER 10 mg morpHINE injection 2 mg Given 04/21/2019 4:20 AM CUSHION SEWER 2 mg 2 mg, Slow IV Push, Q4HPRN, Starting [place] 04/16/19 at 2347, Until Discontinued, Routine, Pain (scale 4-6), Pain (scale 7-10) Given 04/20/2019 4:56 PM CUSHION SEWER 2 mg Given 04/20/2019 10:36 AM CUSHION SEWER 2 mg morphine IR (MSIR) tablet 15 mg Given 04/21/2019 9:39 AM CUSHION SEWER 15 mg 15 mg, Oral, Q12H, First dose on 04/16/19 at 2345, Until Discontinued, Routine Given 04/20/2019 10:53 PM CUSHION SEWER 15 mg Given 04/20/2019 9:12 AM CUSHION SEWER 15 mg ondansetron (ZOFRAN-ODT) disintegrating tablet Given 04/21/2019 9:38 AM CUSHION SEWER 4 mg 4 mg 4 mg, Oral, Q6HPRN, Starting Wed04/19/19 at 1156, Until Discontinued, Routine, Nausea and Vomiting (N/V) Given 04/20/2019 10:40 PM CUSHION SEWER 4 mg Given 04/19/2019 8:20 PM CUSHION SEWER 4 mg pantoprazole (PROTONIX) EC tablet 40 mg Given 04/21/2019 9:38 AM CUSHION SEWER 40 mg 40 mg, Oral, DAILY, First dose on Wed04/19/19 at 1200, Until Discontinued, Routine Given 04/20/2019 9:12 AM CUSHION SEWER 40 mg Given 04/19/2019 12:40 PM CUSHION SEWER 40 mg piperacillin-tazobactam (ZOSYN) 3.375 g in Given 04/21/2019 9:46 AM CUSHION SEWER 3.375 g NaCl 0.9% (NS) 100 mL MINI-BAG 3.375 g, IV Piggyback, Q6H ABX, First dose on Wed04/17/19 at 1030, Until Discontinued, 100 mL, Reason for Anti-Infective: Documented Infection, Documented Infection Site: Urine, Duration of Therapy: 7 days Given 04/21/2019 4:12 AM CUSHION SEWER 3.375 g Given 04/20/2019 10:43 PM CUSHION SEWER 3.375 g proMETHazine (PHENERGAN) 12.5 mg in NaCl Given 04/20/2019 6:43 PM CUSHION SEWER 12.5 mg 0.9% (NS) 50 mL IV piggyback 12.5 mg, IV Piggyback, Q6HPRN, Starting Wed04/17/19 at 1752, Until Discontinued, Routine, N/V alternating with Ondansetron Given 04/20/2019 8:03 AM CUSHION SEWER 12.5 mg Given 04/19/2019 10:50 PM CUSHION SEWER 12.5 mg sennosides (SENOKOT) tablet 8.6 mg Given 04/20/2019 9:12 AM CUSHION SEWER 8.6 mg 8.6 mg, Oral, BID, First dose on Wed04/16/19 at 2345, Until Discontinued, Routine Given 04/18/2019 8:13 PM CUSHION SEWER 8.6 mg Given 04/18/2019 9:03 AM CUSHION SEWER 8.6 mg Medication Order MAR Action Action Date Dose Rate Site acetaminophen (TYLENOL) Given 04/16/2019 8:32 PM CUSHION SEWER 650 mg suppository 650 mg 650 mg, Rectal, ONCE, 1 dose, 04/16/19 at 2130, AN[place]ARIA cefTRIAXone (ROCEPHIN) 1,000 mg in NaCl Given 04/16/2019 9:56 PM CUSHION SEWER 1,000 mg 0.9% (NS) 50 mL MINI-BAG 1,000 mg, IV Piggyback, ONCE, 1 dose, [place] 04/16/19 at 2230, 50 mL, Reason for Anti-Infective: Documented Infection, Documented Infection Site: Urine, Duration of Therapy: 7 days haloperidol lactate (HALDOL) injection 5 mg Given 04/16/2019 8:51 PM CUSHION SEWER 5 mg 5 mg, Intravenous, ONCE, 1 dose, 04/16/19 at 2145, STAT heparin 1000 unit/mL injection Soln Given 04/16/2019 10:02 PM CUSHION SEWER 3,348 Units 3,348 Units 3,348 Units (60 Units/kg 55.8 kg), IV Push, ONCE, 1 dose, [place] 04/16/19 at 2145, Routine heparin 25,000 unit/250 Rate Change 04/17/2019 7:10 AM CUSHION SEWER 720 Units/hr 7.2 mL/hr mL (Premixed Bag) in D5W weight based dosing ACS protocol 12 Units/kg/hr 55.8 kg (6.696 mL/hr, rounded to 6.7 mL/hr), IV Infusion, CONTINUOUS, Starting 04/16/19 at 2230, Until 04/17/19 at 1813 New Bag 04/16/2019 10:04 PM CUSHION SEWER 12 Units/kg/hr 6.7 mL/hr heparin lock flush (HEPARIN Given 04/21/2019 4:29 PM CUSHION SEWER 500 Units LOCKFLUSH(PORCINE)(PF)) 100 unit/mL injection 500 Units 500 Units (5 mL), IV Push, ONCE, 1 dose, 04/21/19 at 1600, Routine iohexol (OMNIPAQUE 350 BULK-100 mL) Given 04/16/2019 9:50 PM CUSHION SEWER 120 mL injection 120 mL 120 mL, Intravenous, ONCE, 1 dose, [place] 04/16/19 at 2215, Routine KCL (KLOR-CON M20) tablet 40 mEq Given 04/17/2019 9:19 PM CUSHION SEWER 40 mEq 40 mEq, Oral, ONCE, 1 dose, 04/17/19 at 1930, Routine KCL (KLOR-CON M20) tablet 40 mEq Given 04/19/2019 8:28 AM CUSHION SEWER 40 mEq 40 mEq, Oral, ONCE, 1 dose, 04/19/19 at 0830, Routine KCL (KLOR-CON M20) tablet 40 mEq Given 04/20/2019 1:08 PM CUSHION SEWER 40 mEq 40 mEq, Oral, ONCE, 1 dose, [place] 04/20/19 at 1330, Routine lidocaine-prilocaine (EMLA) 2.5-2.5 % cream Given 04/18/2019 6:11 PM CUSHION SEWER Topical, ONCE, 1 dose, 04/18/19 at 1900, Routine LORazepam (ATIVAN) injection 1 mg Given 04/16/2019 9:04 PM CUSHION SEWER 1 mg 1 mg, Slow IV Push, ONCE, 1 dose, 04/16/19 at 2200, STAT morpHINE injection 4 mg Given 04/16/2019 8:31 PM CUSHION SEWER 4 mg 4 mg, Slow IV Push, ONCE, 1 dose, [place] 04/16/19 at 2130, STAT NaCl 0.9% (NS) bolus infusion New Bag 04/16/2019 8:25 PM CUSHION SEWER 1,000 mL 999 mL/hr 1,674 mL at 999 mL/hr, 1,674 mL (30 mL/kg 55.8 kg), IV Infusion, ONCE, 1 dose, [place] 04/16/19 at 2130, STAT NaCl 0.9% (NS) bolus infusion 500 New Bag 04/16/2019 8:51 PM CUSHION SEWER 500 mL 999 mL/hr mL at 999 mL/hr, 500 mL, IV Piggyback, ONCE, 1 dose, 04/16/19 at 2200, STAT NaCl 0.9% (NS) IV infusion 1,000 New Bag 04/17/2019 10:33 AM CUSHION SEWER 1,000 mL 125 mL/hr mL at 125 mL/hr, IV Infusion, CONTINUOUS, Starting 04/17/19 at 0000, Until Wed04/17/19 at 1813, Routine New Bag 04/17/2019 1:02 AM CUSHION SEWER 1,000 mL 125 mL/hr NaCl 0.9% (NS) IV infusion 1,000 New Bag 04/19/2019 3:48 PM CUSHION SEWER 1,000 mL 100 mL/hr mL at 100 mL/hr, IV Infusion, CONTINUOUS, Starting Wed04/17/19 at 1815, Until Wed04/19/19 at 1808, Routine New Bag 04/19/2019 1:52 AM CUSHION SEWER 1,000 mL 100 mL/hr New Bag 04/18/2019 10:43 AM CUSHION SEWER 1,000 mL 100 mL/hr ondansetron (ZOFRAN (PF)) injection 4 mg Given 04/19/2019 1:47 AM CUSHION SEWER 4 mg 4 mg, Slow IV Push, Q6HPRN, Starting 04/16/19 at 2347, Until Wed04/19/19 at 1157, Routine, Nausea and Vomiting (N/V) Given 04/17/2019 3:53 PM CUSHION SEWER 4 mg Given 04/17/2019 6:02 AM CUSHION SEWER 4 mg ondansetron (ZOFRAN (PF)) injection 8 mg Given 04/16/2019 8:31 PM CUSHION SEWER 8 mg 8 mg, Slow IV Push, ONCE, 1 dose, [place] 04/16/19 at 2130, ANNAMARIA piperacillin-tazobactam (ZOSYN) 3.375 Given 04/16/2019 10:41 PM CUSHION SEWER 3.375 g gram/50 mL Piggyback 3.375 g 3.375 g, IV Piggyback, ONCE, 1 dose, [place] 04/16/19 at 2245, 50 mL, Reason for Anti-Infective: Documented Infection, Documented Infection Site: Urine, Duration of Therapy: 7 days piperacillin-tazobactam (ZOSYN) 3.375 Given 04/17/2019 3:49 AM CUSHION SEWER 3.375 g gram/50 mL Piggyback 3.375 g 3.375 g, IV Piggyback, Q6H ABX, First dose on Wed04/17/19 at 0400, Until Discontinued, 50 mL, Reason for Anti-Infective: Documented Infection, Documented Infection Site: Urine, Duration of Therapy: 7 days potassium, sodium phosphates (PHOS-NAK) Given 04/20/2019 1:08 PM CUSHION SEWER 1 Packet 280-160-250 mg packet 1 Packet 1 Packet, Oral, ONCE, 1 dose, [facility] 04/20/19 at 1330, Routine Vancomycin 750 mg in NaCl 0.9% (NS) 250 mL Given 04/17/2019 12:02 AM CUSHION SEWER 750 mg VIAL-MATE 750 mg (rounded from 837 mg=15 mg/kg 55.8 kg), IV Piggyback, ONCE, 1 dose, 04/16/19 at 2245, 250 mL, Reason for Anti-Infective: Documented Infection, Documented Infection Site: Urine, Duration of Therapy: 7 days documented in this encounter Insurance Payer Benefit Plan Subscriber ID Effective Dates Phone Address Type / Group BCBS OF [facility] [id number] 2018-Beth [phone] [address] PPO/POS [facility] [id number] [place] [address] documented as of this encounter
--- OUTSIDE RECORDS SUMMARY | 2019-05-28 12:31 | XMS REPORT | Summary of Care ---
:1965 Author Organization [facility] - [facility] Address [address] [place] [address] Care Team Providers Name Role Phone Oracio Loo MD Primary Care Provider Reason for Visit Reason Comments Transition Of Care Encounter Details Date Type Department Care Team Description 04/24/2019 Transition of Care [facility] Yovani Arthur, [facility] RN [address] [address] Allergies Active Allergy Reactions Severity Noted Date Comments Oxaliplatin Anaphylaxis High 03/17/2019 documented as of this encounter (statuses as of 04/24/2019) Medications Medication Sig Dispensed Refills Start Date End Date Status atorvastatin 40 mg Take 1 tablet by 90 tablet 3 02/20/2019 Active tabletIndications: mouth at Mixed hyperlipidemia bedtime. famotidine 20 mg Take 1 tablet by 60 tablet 3 03/20/2019 Active tabletIndications: mouth 2 (two) Intraabdominal mass, times daily. History of colon cancer, Hydronephrosis, unspecified hydronephrosis type lisinopril 10 mg Take 1 tablet by 30 tablet 3 03/21/2019 Active tabletIndications: mouth daily. Intraabdominal mass, History of colon cancer, Hydronephrosis, unspecified hydronephrosis type morphine ER 15 mg 12 Take 1 tablet by 90 tablet 0 04/07/2019 Active hr tabletIndications: mouth every 12 Intraabdominal mass, (twelve) hours. 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 ondansetron 4 mg/5 mL Take 5 mL by 150 mL 0 04/21/2019 Active solutionIndications: mouth every 8 Malignant neoplasm of (eight) hours as colon, unspecified needed for part of colon Nausea and Vomiting (N/V). amoxicillin-clavulanat Take 1 tablet by 10 tablet 0 04/21/2019 04/26/2019 Active e (AUGMENTIN) 875-125 mouth 2 (two) mg per times daily for tabletIndications: 5 days. Complicated UTI (urinary tract infection) documented as of this encounter (statuses as of 04/24/2019) Active Problems Problem Noted Date Troponin I [...] as of this encounter (statuses as of 04/24/2019) Immunizations Name Administration Dates Next Due Pneumococcal [...] of this encounter Last Filed Vital Signs Not on filedocumented in this encounter Plan of Treatment Date Type Specialty Care Team Description 05/24/2019 Appointment Radiology Mike Bonilla MD [address] [place] [phone] 07/07/2019 Office Visit Family Medicine Oracio Loo MD [address] [place] [address] [address] [place], [place] [id number] Health Maintenance Due Date Last Done Comments DTaP,Tdap,and Td Vaccines (1 - Tdap) 1977 PAP SMEAR 07/01/1987 Breast Cancer Screening (MAMMOGRAM) 2006 COLONOSCOPY 2016 Zoster Recombinant Vaccine (SHINGRIX) (1 of 2) 2016 INFLUENZA VACCINE (#1) 2018 PNEUMOCOCCAL 0-64 YEARS COMBINED SERIES (2 of 3 - 02/11/2020 02/10/2019 PCV13) documented as of this encounter Implants Implanted Type Area Phys Asst Device Shelf Model / Identifier Expiration Date Serial / Lot Port-11/12/2014 Port Right: Implanted: 11/12/2014 (Quantity not on file) Chest documented as of this encounter Results Not on filedocumented in this encounter Insurance Payer Benefit Plan Subscriber ID Effective Dates Phone Address Type / Group BCBS OF [employer] [place] [id number] 2018-Beth [phone] [address] PPO/POS [place] t [id number] [place] [address] documented as of this encounter
--- NOTE | 2019-05-28 13:40 | RAD REPORT ---
EXAM DESCRIPTION: RAD - Abdomen 1 View (KUB) - 05/28/2019 1:27 pm CLINICAL HISTORY: Abdomen pain. FINDINGS: The bowel gas pattern is unremarkable. There is no evidence of an obstruction. Moderate am ount of stool within the colon Percutaneous right nephrostomy tube in place Lung nodules within the lung bases
[2019-05-28] MEDS ORDERED: MAGNESIUM CITRATE 300 ML BOT ONE (13:48)
--- NOTE | 2019-05-28 16:58 | ER ---
Nurse's Notes [facility] Name: Selma Balderas Age: 53 yrs Sex: Female : 1965 Arrival Date: 05/28/2019 Time: 12:25 Bed 14 Private MD: Diagnosis: Constipation, unspecified Presentation: 05/28 12:34 Presenting complaint: Patient states: I have colon cancer and mass in the abdomen ca1 pressing on everything. Chemo this week. Pt reports of abdominal pain since yesterday, constipation and nausea. Last BM was 1.5 wks ago. Took laxatives and did fleet enema, unsuccessful. Reports rectal swelling. Transition of care: patient was not received from another setting of care. Onset of symptoms was May 28, 2019. Risk Assessment: Do you want to hurt yourself or someone else? Patient reports no desire to harm self or others. Initial Sepsis Screen: Does the patient meet any 2 criteria? No. Patient's initial sepsis screen is negative. Does the patient have a suspected source of infection? No. Patient's initial sepsis screen is negative. Care prior to arrival: None. 12:34 Method Of Arrival: Wheelchair ca1 12:34 Acuity: DANIS 3 ca1 Triage Assessment: 12:30 General: Appears in no apparent distress. Behavior is calm, cooperative, appropriate vc for age. Pain: Complains of pain in rectum. Pain: Complains of pain in abdomen. GI: Bowel sounds present X 4 quads. Reports lower abdominal pain, upper abdominal pain, constipation. 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 - Coronavirus screen:: The patient has NOT traveled to [place] in the past 14 days. The patient has NOT had contact with known/suspected case of Coronavirus?. - Social history:: Smoking status: Patient denies any tobacco usage or history of. - Ebola Screening: : Patient negative for fever greater than or equal to 101.5 degrees Fahrenheit, and additional compatible Ebola Virus Disease symptoms Patient denies exposure to infectious person Patient denies travel to an Ebola-affected area in the 21 days before illness onset No symptoms or risks identified at this time. Screenin:30 Abuse screen: Denies threats or abuse. Nutritional screening: No deficits noted. vc Tuberculosis screening: No symptoms or risk factors identified. Fall Risk None identified. Assessment: 12:30 GI: Bowel sounds present X 4 quads. Abd is soft Abdomen is tender to palpation X 4 vc quads. 12:45 General: Appears in no apparent distress. uncomfortable, ill. Pain: Complains of pain vc in abdomen. Neuro: Level of Consciousness is awake, alert, obeys commands, Oriented to person, place, time. Cardiovascular: Patient's skin is warm and dry. Respiratory: Airway is patent Respiratory effort is even, unlabored, Respiratory pattern is regular, symmetrical. : No signs and/or symptoms were reported regarding the genitourinary system. EENT: No signs and/or symptoms were reported regarding the EENT system. Musculoskeletal: Circulation, motion, and sensation intact. Range of motion: intact in all extremities. 14:00 Reassessment: Patient and/or family updated on plan of care and expected duration. Pain vc level reassessed. Patient is alert, oriented x 3, equal unlabored respirations, skin warm/dry/pink. 15:00 Reassessment: Patient and/or family updated on plan of care and expected duration. Pain vc level reassessed. Patient is alert, oriented x 3, equal unlabored respirations, skin warm/dry/pink. 16:00 Reassessment: Patient and/or family updated on plan of care and expected duration. Pain vc level reassessed. Patient is alert, oriented x 3, equal unlabored respirations, skin warm/dry/pink. Patient states feeling better. 17:00 Reassessment: Patient and/or family updated on plan of care and expected duration. Pain vc level reassessed. Patient is alert, oriented x 3, equal unlabored respirations, skin warm/dry/pink. Patient states feeling better. Patient states symptoms have improved. Vital Signs: 12:38 BP 150 / 97; Pulse 101; Resp 19 S; Temp 96.7(TE); Pulse Ox 99% on R/A; Weight 50.8 kg ca1 (R); Height 5 ft. 5 in. (165.10 cm) (R); Pain 10/10; 13:30 BP 148 / 96; Pulse 99; Resp 20; Pulse Ox 99% on R/A; vc 14:30 BP 152 / 102; Pulse 102; Resp 20; Pulse Ox 100% on R/A; vc 16:00 BP 150 / 95; Pulse 100; Resp 18; Temp 97.9(O); Pulse Ox 100% on R/A; vc 17:00 BP 152 / 94; Pulse 99; Resp 20; Pulse Ox 99% on R/A; vc 12:38 Body Mass Index 18.64 (50.80 kg, 165.10 cm) ca1 ED Course: 12:25 Patient arrived in ED. as 12:36 Negrito Ricketts PA is PHCP. lesa 12:36 Collin Louise MD is Attending Physician. m 12:36 Triage completed. ca1 12:38 Arm band placed on right wrist. ca1 12:40 Patient has correct armband on for positive identification. vc 12:41 Carol Camejo RN is Primary Nurse. vc 13:29 Abdomen 1 View (KUB) XRAY In Process Unspecified. EDMS 17:30 No provider procedures requiring assistance completed. Patient did not have IV access vc during this emergency room visit. Administered Medications: 14:41 Drug: Magnesium Citrate Liquid 300 ml Route: PO; vc 15:15 Follow up: Response: Marked relief of symptoms vc 17:38 Not Given (Other Intervention Used): Fleet Enema 133 ml NE once vc Outcome: 16:55 Discharge ordered by MD. [facility] 17:40 Discharged to home ambulatory, with family. vc 17:40 Condition: good 17:40 Condition: improved 17:40 Discharge instructions given to patient, family, Instructed on discharge instructions, follow up and referral plans. Demonstrated understanding of instructions, follow-up care. 17:41 Patient left the ED. vc Signatures: Dispatcher [employer] EDMS Negrito Ricketts PA PA jmm Martinez, Amelia as Acob, Cheryl, RN RN ca1 Carol Camejo RN RN vc
--- NOTE | 2019-05-28 16:58 | EDPHYS ---
Physician Documentation [facility] Name: Selma Balderas Age: 53 yrs Sex: Female : 1965 Arrival Date: 05/28/2019 Time: 12:25 Bed 14 Private MD: ED Physician Collin Louise HPI: 05/28 13:07 This 53 yrs old Female presents to ER via Wheelchair with complaints of jmm Constipation, Rectal Pain. 13:07 The patient presents to the emergency department with pain in the rectal area. Onset: jmm The symptoms/episode began/occurred yesterday. Modifying factors: The symptoms are alleviated by nothing, The symptoms are aggravated by nothing. This is a 53 year old female with a history of colon cancer that presents to the ED with complaints of rectal pain, constipation beginning yesterday. Patient taking hydrocodone daily. . 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 - Coronavirus screen:: The patient has NOT traveled to [place] in the past 14 days. The patient has NOT had contact with known/suspected case of Coronavirus?. - Social history:: Smoking status: Patient denies any tobacco usage or history of. - Ebola Screening: : Patient negative for fever greater than or equal to 101.5 degrees Fahrenheit, and additional compatible Ebola Virus Disease symptoms Patient denies exposure to infectious person Patient denies travel to an Ebola-affected area in the 21 days before illness onset No symptoms or risks identified at this time. ROS: 13:07 Constitutional: Negative for fever, chills, and weight loss, Cardiovascular: Negative jmm for chest pain, palpitations, and edema, Respiratory: Negative for shortness of breath, cough, wheezing, and pleuritic chest pain. 13:07 Abdomen/GI: Positive for constipation, Negative for vomiting. 13:07 All other systems are negative. Exam: 13:07 Head/Face: atraumatic. ENT: Moist Mucus Membranes jmm 13:07 Neck: Trachea midline, Supple Chest/axilla: Normal chest wall appearance and motion. Cardiovascular: Regular rate and rhythm. No edema appreciated Respiratory: Normal respirations, no respiratory distress appreciated Abdomen/GI: Non distended, soft Back: Normal ROM Skin: General appearance color normal MS/ Extremity: Moves all extremities, no obvious deformities appreciated, no edema noted to the lower extremities Neuro: Awake and alert, normal gait Psych: Behavior is normal, Mood is normal, Patient is cooperative and pleasant 13:07 Constitutional: The patient appears alert, awake, uncomfortable. Vital Signs: 12:38 BP 150 / 97; Pulse 101; Resp 19 S; Temp 96.7(TE); Pulse Ox 99% on R/A; Weight 50.8 kg ca1 (R); Height 5 ft. 5 in. (165.10 cm) (R); Pain 10/10; 13:30 BP 148 / 96; Pulse 99; Resp 20; Pulse Ox 99% on R/A; vc 14:30 BP 152 / 102; Pulse 102; Resp 20; Pulse Ox 100% on R/A; vc 16:00 BP 150 / 95; Pulse 100; Resp 18; Temp 97.9(O); Pulse Ox 100% on R/A; vc 17:00 BP 152 / 94; Pulse 99; Resp 20; Pulse Ox 99% on R/A; vc 12:38 Body Mass Index 18.64 (50.80 kg, 165.10 cm) ca1 Procedures: 16:50 Fecal disimpaction: digital disimpaction was performed, with a moderate amount of stool jmgama expressed. The patient tolerated the intervention well. MDM: 12:59 Patient medically screened. [facility] 16:50 Data reviewed: vital signs, nurses notes. Counseling: I had a detailed discussion with lesa the patient and/or guardian regarding: the historical points, exam findings, and any diagnostic results supporting the discharge/admit diagnosis, radiology results, the need for outpatient follow up, to return to the emergency department if symptoms worsen or persist or if there are any questions or concerns that arise at home. 16:50 ED course: Patient is able to have a full bowel movement in the ED. Pain is relieved. [facility] Patient advised to follow up with pcp and otherwise given strict return precautions. patient understood and agrees with the plan of care. . 05/28 13:05 Order name: Abdomen 1 View (KUB) XRAY; Complete Time: 13:47 [facility] 05/28 13:05 Order name: Gown patient; Complete Time: 13:10 [facility] Administered Medications: 14:41 Drug: Magnesium Citrate Liquid 300 ml Route: PO; vc 15:15 Follow up: Response: Marked relief of symptoms vc 17:38 Not Given (Other Intervention Used): Fleet Enema 133 ml DC once vc Disposition: 05/28/19 16:55 Discharged to Home. Impression: Constipation, unspecified. - Condition is Stable. - Discharge Instructions: Constipation, Adult. - Prescriptions for Dulcolax 10 mg Rectal Suppository - insert 1 suppository by RECTAL route every 6 hours As needed; 10 suppository. - Medication Reconciliation Form, Thank You Letter, Antibiotic Education, Prescription Opioid Use form. - Follow up: Private Physician; When: As needed; Reason: Recheck today's complaints, Continuance of care, Re-evaluation by your physician. Addendum: 05/30/2019 19:03 Co-signature as Attending Physician, Collin Louise MD. r n Signatures: Dispatcher [employer] EDMS Negrito Ricketts PA PA Collin Velasco MD MD rn Acob, Cheryl, RN RN ca1 Carol Camejo RN RN vc Corrections: (The following items were deleted from the chart) 05/28 17:41 16:55 05/28/2019 16:55 Discharged to Home. Impression: Constipation, unspecified. vc Condition is Stable. Forms are Medication Reconciliation Form, Thank You Letter, Antibiotic Education, Prescription Opioid Use. Follow up: Private Physician; When: As needed; Reason: Recheck today's complaints, Continuance of care, Re-evaluation by your physician. [facility]
[2019-05-28 17:51] VITALS: BP 150/97; TEMP 96.7; O2SAT 99
== END 2019-05-28 17:41 | disposition home or self-care (01) ==
LOC: ER 12:24
DX: K59.00 Constipation, unspecified (principal); Z85.038 Personal history of other malignant neoplasm of large intestine; Z85.118 Personal history of other malignant neoplasm of bronchus and lung; Z85.528 Personal history of other malignant neoplasm of kidney
CPT/HCPCS: 74018; 99283

== ENCOUNTER 2020-01-10 11:08 | Day surgery (SDC) | payer BC ==
[~2020-01-10 11:08] MED LIST: BEVACIZUMAB 25 MG/ML IV ONE; FOSAPREPITANT DIMEGLUMINE 150 MG IV ONE; SODIUM CHL 0.9% 100 ML BAG ONE; SODIUM CHL 0.9% 250 ML BAG ONE; dexAMETHasone 4 MG/ML VIAL IV ONE
[2020-01-10] MEDS ORDERED: WATER FOR INJ,STERILE 20 ML ONE (11:52)
[2020-01-10] MEDS ORDERED: HYDROCODONE/APAP 10/325 TAB ONE (12:06)
[2020-01-10 13:20] VITALS: BMI 18.1
[2020-01-10 13:24] VITALS: BP 147/92; TEMP 97.7
[2020-01-10] MEDS ORDERED: D5W IVPB ONE (14:15)
[2020-01-10] MEDS ORDERED: OXALIPLATIN IVPB ONE (14:15)
[2020-01-10] MEDS ORDERED: FLUOROURACIL IV ONE (15:00)
[2020-01-10] MEDS ORDERED: NA CHLORIDE 0.9% IV ONE (15:00)
--- OUTSIDE RECORDS SUMMARY | 2020-01-11 17:29 | XMS REPORT | Clinical Summary ---
:1965 Author Organization [facility] Address [address] [place] [id number] Care Team Providers Name Role Phone Asked, Pcp Primary Care Provider Unavailable Allergies No Known Active Allergies Medications Not on file Active Problems Problem Noted Date Colon cancer 10/14/2016 Social History Tobacco Use Types Packs/Day Years Used Date Never Assessed Sex Assigned at Date Recorded Not on file Last Filed Vital Signs Not on file Plan of Treatment Health Maintenance Due Date Last Done Comments CERVICAL CANCER SCREENING 07/01/1987 BREAST CANCER SCREENING 2016 COLONOSCOPY SCREENING 2016 SHINGLES VACCINES (#1) 2016 INFLUENZA VACCINE 11/04/2019 Results Not on fileafter 01/09/2019 Advance Directives For more information, please contact: [phone] Type Date Recorded 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
--- OUTSIDE RECORDS SUMMARY | 2020-01-11 17:29 | XMS REPORT | Continuity of Care Document ---
:1965 Author Organization [facility] t Address [address] Jaramillo. [address] [place] [address] Care Team Providers Name Role Phone Asked, Pcp Primary Care Physician Unavailable Nitza LINARES Attending Clinician Doctor Unassigned, Name Attending Clinician Unavailable Erika BRADLEY, L Attending Clinician Unavailable Singer SHAIKH Attending Clinician Gita LINARES S Attending Clinician Jorge Clifford Attending Clinician Pavel SANDOVAL Attending Clinician Unavailable Pavel SANDOVAL Admitting Clinician Unavailable Problems Condition Condition Condition Status Onset Resolution Last Treating Co mments Source Name Details Category Date Date Treatment Clinician Date Colon Colon Disease Active [facility] 7[facility]12 [facility] 00:00: st 00 Colon Colon Disease Active [facility] cancer 09-21 [facility] Allergies, Adverse Reactions, Alerts This patient has no known allergies or adverse reactions. Social History Social Habit Start Date Stop Date Quantity Comments Source Sex Assigned At [facility] Smoking Status Start Date Stop Date Source [facility] smoker [facility] [place] Medications Ordered Filled Start Stop Current Ordering Indication Dosage Frequency Signature Comments Components Source Medication Medication Date Date Medication? Clinician (SIG) Name Name enoxaparin Yes 40mg Q24H Inject 0.[address] (LOVENOX) 6-27 mLs (40 mg Luke [facility] - 40 mg/0.4 00:00: total) Medica l mL Syrg 00 subcutane Center usly daily. Procedures This patient has no known procedures. Plan of Care Planned Activity Planned Date Details Comments Source Future Scheduled 2024-04-17 Lipid panel [facility] - Test 00:00:00 (procedure) [code = [facility] 78630420] Future Scheduled 2019-12-05 INFLUENZA VACCINE [facility] - Test 00:00:00 (#1) [code = [facility] INFLUENZA VACCINE (#1)] Future Scheduled 2019-11-04 INFL[place]ZA VACCINE [place] [facility] Test 00:00:00 [code = INFLUENZA VACCINE] Future Scheduled 2016 BREAST CANCER [facility] thodist Test 00:00:00 SCREENING [code = BREAST CANCER SCREENING] Future Scheduled 2016 COLONOSCOPY [facility] 00:00:00 [code = COLONOSCOPY SCREENING] Future Scheduled 2016 SHINGLES VACCINES [place] [facility] Test 00:00:00 (#1) [code = SHINGLES VACCINES (#1)] Future Scheduled 1987-07-01 Screening for [facility] thodist Test 00:00:00 malignant neoplasm of cervix (procedure) [code = 063788289] Future Scheduled 1987-07-01 Screening for [facility] - Test 00:00:00 malignant neoplasm of [facility] cervix (procedure) [code = 806547469] Future Scheduled 1966 Screening for [facility] - Test 00:00:00 malignant neoplasm of [facility] breast (procedure) [code = 734754821] Future Scheduled [address] [facility] - Test 00:00:00 malignant neoplasm of [facility] colon (procedure) [code = 557974926] Encounters Start End Encounter Admission Attending Care Care Encounter Source Date/Time Date/Time Type Type Clinicians Facility Department ID 2019-12-13 2019-12-13 [facility] [id number] 09:38:31 23:59:00 Encounter Benny MARINA [id number] CARE 4.2.7.2.686 [place] AT [id number] ADÁN 803 [facility] 2019-11-10 2019-11-10 Orders Doctor GENESIS [id number] 00:00:00 00:00:00 Only Unassigned, ABAD [id number] [facility] 4.2.7.2.686 [id number] [id number] 2019-10-27 2019-10-27 Transition Rommel James [id number] 00:00:00 00:00:00 of Care Columba Cummings Castañeda [id number] [place] 4.2.7.2.686 [id number] 2019-10-26 2019-10-26 Emergency Davian Meng [facility] 1.2.840. [id number] 16:26:10 21:53:00 Isiah Pelayo [id number] [place] 4.2.7.2.686 [place] [id number] 2019-10-25 2019-10-25 [facility] [id number] 00:00:00 00:00:00 Management Kanwal Moore [id number] [place] 4.2.7.2.686 Professio [phone] [address] 2019-10-20 2019-10-20 Office [facility] [id number] 16:02:06 16:30:07 Visit Benny Moore [id number] [place] 4.2.7.2.686 Professio [id number] [facility] 204 Building Results Test Description Test Time Test Comments Results Result Sourc e Comments TISSUE EXAM 2019-04-24 Surgical Pathology Report 12:26:00 Case: [id number] Authorizing Provider: Dav Bernard MD Collected: 09/25/2014 1329 Ordering Location: [facility] PERIOPER[facility] Received: 09/25/2014 1518 SERVICES Pathologist: Jeanie Rg MD Specimen: Large Intestine, Colon - Right/Ascending, RIGHT COLON AND SMALL BOWEL The addendum is being issued to report the results of PDL1 testing and KRAS and NRAS testing by [facility].Please see scanned report for results.Addendum electronically signed [...] recommended to assess the need for germline testing.Immunohistochemis try disclaimer:The immunohistochemistry test was developed and its performance characteristics determined by [facility], Pathology Laboratory. It has not been cleared [...] qualified to perform high complexity clinical laboratory testing.[id number], [id number] electronically signed by Sergio Bustillos MD on 10/05/2016 at 6:20 PMRIGHT/ASCENDING COLON, PORTION OF SMALL BOWEL, EXCISION: COLON: ADENOCARCINOMA WITH INFILTRATION INTO PERICOLONIC ADIPOSE TISSUE METASTATIC CARCINOMA IN ONE OF TWENTY-ONE LYMPH NODES (1/21) EXCISION MARGINS: NEGATIVE FOR CARCINOMA PORTION OF [...] pM cannot be determined from the submitted specimen(s)[id number], [id number], [id number] x5, [id number] cancerRight colon and small bowelSpecimen is received [...] developed and its performance characteristics determined by [facility], Pathology Laboratory. It has not been cleared [...]
--- OUTSIDE RECORDS SUMMARY | 2020-01-11 17:29 | XMS REPORT | Clinical Summary ---
:1965 Author Organization [facility] Address [address] [place] [address] Care Team Providers Name Role Phone Unavailable Primary Care Provider Unavailable Allergies No Known Allergies Medications Medication Sig Dispensed Refills Start Date End Date Status enoxaparin Inject 0.4 mLs (40 mg 28 Syringe 0 09/29/2014 Active (LOVENOX) 40 total) subcutaneously mg/0.4 mL Syrg daily. Active Problems Problem Noted Date Colon cancer 09/21/2014 Social History Tobacco Use Types Packs/Day Years Used Date Never Smoker Sex Assigned at Date Recorded Not on file Job Start Date Occupation Industry Not on file Not on file Not on file Travel History Travel Start Travel End No recent travel history available. Last Filed Vital Signs Not on file Plan of Treatment Health Maintenance Due Date Last Done Comments BREAST CANCER SCREENING 1965 COLON CANCER SCREENING COLONOSCOPY 1965 CERVICAL CANCER SCREENING PAP ONLY (Age 21-65) 07/01/1987 INFLUENZA VACCINE (#1) 2019 LIPID PANEL 04/17/2024 04/17/2019 Implants Implanted Type Area Pharmacy General Manager Device Shelf Model / Identifier Expiration Serial / Date Lot Hemostat Vitagel Agent Surg - [id number] Cement/F [place] 12/04/2015 [id number] / Implanted: Qty: 1 on 09/25/2014 by Dav Bernard MD ill er/Ad Orthopaedics / hesive [id number] Adhesion Barrier,Seprafilm 5x6 - [id number] Cement/F Right: GENCrystal YME [employer]GICAL 12/03/2016 4301-02 / Implanted: Qty: 1 on 09/25/2014 by Dav Bernard MD ill er/Ad Abdomen PRODUCTS / hesive [id number] Results Not on fileafter 01/09/2019 Insurance Payer Benefit Plan / Subscriber ID Type Phone Address Group BLUE CROSS/BLUE BCBS PPO POS EPO xxxxxxxxxxxx PPO [phone] [address] [place] [address] Advance Directives For more information, please contact:[facility] [place], [place] [phone] Code Status Date Activated Date Inactivated Comments Full Code 09/25/2014 2:22 PM 09/29/2014 3:32 PM This code status was determined by: Patient
--- OUTSIDE RECORDS SUMMARY | 2020-01-11 20:01 | XMS REPORT | Clinical Summary ---
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
--- OUTSIDE RECORDS SUMMARY | 2020-01-11 20:01 | XMS REPORT | Continuity of Care Document ---
:1965 Author Organization [facility] t Address [address] Jaramillo. [address] [place] [address] Care Team Providers Name Role Phone Asked, Pcp Primary Care Physician Unavailable Nitza LINARES Attending Clinician Doctor Unassigned, Name Attending Clinician Unavailable Erika BRADLEY, L Attending Clinician Unavailable Singer SHAKIH Attending Clinician Gita LINARES S Attending Clinician Jorge Clifford Attending Clinician Pavel SANDOVAL Attending Clinician Unavailable Pavel SANDOVAL Admitting Clinician Unavailable Problems Condition Condition Condition Status Onset Resolution Last Treating Co mments Source Name Details Category Date Date Treatment Clinician Date Colon Colon Disease Active [place] cancer cancer 7-12 Methodi 00:00: st 00 Colon Colon Disease Active [facility] cancer cancer 09-21 [facility] 00 [facility] Allergies, Adverse Reactions, Alerts This patient has no known allergies or adverse reactions. Social History Social Habit Start Date Stop Date Quantity Comments Source Sex Assigned At [facility] Smoking Status Start Date Stop Date Source Never smoker [facility] [place] Medications Ordered Filled Start Stop Current Ordering [...] Comments Source Future Scheduled 2024-04-17 Lipid panel [facility] - Test 00:00:00 (procedure) [code = [facility] 00908138] Future Scheduled 2019-12-05 INFLUENZA VACCINE [facility] - Test 00:00:00 (#1) [code = [facility] INFLUENZA VACCINE (#1)] Future Scheduled 2019-11-04 INFLUENZA VACCINE [place] [facility] Test 00:00:00 [code = INFLUENZA VACCINE] Future Scheduled 2016 BREAST CANCER [facility] thodist Test 00:00:00 SCREENING [code = BREAST CANCER SCREENING] Future Scheduled 2016 [facility] 00:00:00 [code = COLONOSCOPY SCREENING] Future Scheduled 2016 SHINGLES VACCINES [place] [facility] Test 00:00:00 (#1) [code = SHINGLES VACCINES (#1)] Future Scheduled 1987-07-01 Screening for [facility] thodist Test 00:00:00 malignant neoplasm of cervix (procedure) [code = 904708484] Future Scheduled 1987-07-01 Screening for [facility] - Test 00:00:00 malignant neoplasm of [facility] cervix (procedure) [code = 378136693] Future Scheduled 1965 Screening for [facility] - Test 00:00:00 malignant neoplasm of [facility] breast (procedure) [code = 317366220] Future Scheduled [address] [facility] [address] [facility] - Test 00:00:00 malignant neoplasm of [facility] colon (procedure) [code = 171469069] Encounters Start End Encounter Admission Attending Care Care Encounter Source Date/Time Date/Time Type Type Clinicians Facility Department ID 2019-12-13 2019-12-13 [facility] [id number] 09:38:31 23:59:00 Encounter Benny MARINA [id number] CARE 4.2.7.2.686 [place] AT [id number] ADÁN 803 [facility] 2019-11-10 2019-11-10 Orders Doctor GENESIS [id number] 00:00:00 00:00:00 Only Unassigned, ABAD 350.1.13.10 [facility] 4.2.7.2.686 [id number] [id number] 2019-10-27 2019-10-27 Transition Rommel James [id number] 00:00:00 00:00:00 of Care Columba Cummings Castañeda 350.1.13.10 [place] 4.2.7.2.686 [id number] 2019-10-26 2019-10-26 Emergency Davian Meng [facility] 1.2.840. [id number] 16:26:10 21:53:00 Isiah Pelayo 350.1.13.10 [place] 4.2.7.2.686 [place] [id number] 2019-10-25 2019-10-25 [facility] [id number] 00:00:00 00:00:00 Management Kanwal Moore 350.1.13.10 [place] 4.2.7.2.686 Professio [id number] [address] 2019-10-20 2019-10-20 Office [facility] [id number] 027 16:02:06 16:30:07 Visit Benny Moore 350.1.13.10 [place] 4.2.7.2.686 Professio [phone] [facility] 204 Building Results Test Description Test Time Test Comments Results Result Sourc e Comments TISSUE EXAM 2019-04-24 Surgical Pathology Report 12:26:00 Case: [id number] Authorizing Provider: Dav Bernard MD Collected: 09/25/2014 1329 Ordering Location: [facility] PERI[facility] Received: 09/25/2014 1518 SERVICES Pathologist: Jeanie Rg MD Specimen: Large Intestine, Colon - Right/Ascending, RIGHT COLON AND SMALL BOWEL The addendum is being issued to report the results of PDL1 testing and KRAS and NRAS testing by [facility].Please see scanned report for results.Addendum electronically signed [...] developed and its performance characteristics determined by [facility], Pathology Laboratory. It has not been [...] qualified to perform high complexity clinical laboratory testing.[id number], [id number] electronically signed by Sergio Bustillos MD on [...] pM cannot be determined from the submitted specimen(s)[id number], [id number], 60110 x5, [id number] cancerRight colon and small bowelSpecimen is received [...] developed and its performance characteristics determined by [facility], Pathology Laboratory. It has not been [...]
--- OUTSIDE RECORDS SUMMARY | 2020-01-11 20:01 | XMS REPORT | Clinical Summary ---
:1965 Author Organization [facility] Address [address] [place] [address] Care Team Providers Name Role Phone Unavailable [...] PANEL 04/17/2024 04/17/2019 Implants Implanted Type Area Russian Teacher Device Shelf Model / Identifier Expiration Serial / Date Lot Hemostat Vitagel Agent Surg - [id number] Cement/F [place] 12/04/2015 [id number] / Implanted: Qty: 1 on 09/25/2014 by Dav Bernard MD ill er/Ad Orthopaedics / hesive [id number] Adhesion Barrier,Seprafilm 5x6 - [id number] Cement/F Right: GENCrystal YME SURG[employer] 12/03/2016 4301-02 / Implanted: Qty: 1 on 09/25/2014 by Dav Bernard MD ill er/Ad Abdomen PRODUCTS / hesive [id number] Results Not on fileafter 01/09/2019 Insurance Payer Benefit Plan / Subscriber ID Type Phone Address Group BLUE CROSS/BLUE BCBS PPO POS EPO xxxxxxxxxxxx PPO [phone] [address] [place] [address] Advance Directives For more information, please contact:[facility] [place], [place] [phone] Code Status Date Activated Date Inactivated Comments Full Code 09/25/2014 2:22 PM 09/29/2014 3:32 PM This code status was determined by: Patient
== END 2020-01-10 16:00 | disposition home or self-care (01) ==
LOC: DS 11:08
PROVIDERS: ATTEND Internal Medicine Hematology & Oncology
DX: C18.9 Malignant neoplasm of colon, unspecified (principal)
CPT/HCPCS: 96367 ×2; 96375; 96413; 96415; 96416; 96417; J1100; J9035; J1453; J0640; J9263; J2469; J7060; J7050 ×2; J9190

== ENCOUNTER 2020-03-19 19:50 | Emergency (ER) | payer BC ==
--- OUTSIDE RECORDS SUMMARY | 2020-03-19 19:52 | XMS REPORT | Continuity of Care Document ---
:1965 Author Organization [facility] t Address [address] Jaramillo. [address] [place] [address] Care Team Providers Name Role Phone Asked, [...] Treatment Clinician Date Colon Colon Disease Active [place] cancer cancer 7-12 Methodi 00:00: st 00 Colon Colon Disease Active [facility] cancer cancer 09-21 [facility] 00 Center Allergies, Adverse Reactions, Alerts This patient has no known allergies or adverse reactions. Social History Social Habit Start Date Stop Date Quantity Comments Source Sex Assigned At [facility] Smoking Status Start Date Stop Date Source Never smoker [facility] [place] Medications Ordered Filled Start Stop Current Ordering [...] Comments Source Future Scheduled 2024-04-17 Lipid panel [facility] - Test 00:00:00 (procedure) [code = [facility] 99467717] Future Scheduled 2019-12-05 INFLUENZA VACCINE [facility] Test 00:00:00 (#1) [code = [facility] INFLUENZA VACCINE (#1)] Future Scheduled 2019-11-04 INFLUENZA VACCINE [place] [facility] Test 00:00:00 [code = INFLUENZA VACCINE] Future Scheduled 2016 BREAST CANCER [facility] thodist Test 00:00:00 SCREENING [code = BREAST CANCER SCREENING] Future Scheduled 2016 [facility] Test 00:00:00 [code = COLONOSCOPY SCREENING] Future Scheduled 2016 SHINGLES VACCINES [place] [facility] Test 00:00:00 (#1) [code = SHINGLES VACCINES (#1)] Future Scheduled 1987-07-01 Screening for [facility] thodist Test 00:00:00 malignant neoplasm of cervix (procedure) [code = 029807748] Future Scheduled 1987-07-01 Screening for [facility] - Test 00:00:00 malignant neoplasm of [facility] cervix (procedure) [code = 521534595] Future Scheduled 1966 Screening for [facility] - Test 00:00:00 malignant neoplasm of [facility] breast (procedure) [code = 279442876] Future Scheduled [address] [facility] [address] [facility] - Test 00:00:00 malignant neoplasm of [facility] colon (procedure) [code = 603910243] Encounters Start End Encounter Admission Attending Care Care Encounter Source Date/Time Date/Time Type Type Clinicians Facility Department ID 2020-03-13 2020-03-13 [facility] [id number] 10:04:18 23:59:00 Encounter Benny SPECIALTY 350.1.13.10 [facility] 4.2.7.2.686 CENTER AT [id number] [address] 2019-12-13 2019-12-13 [facility] [id number] 09:38:31 23:59:00 Encounter Benny SPECIALTY 350.1.13.10 [facility] 4.2.7.2.686 CENTER AT [id number] [address] 2019-11-10 2019-11-10 Orders Doctor GENESIS [id number] 00:00:00 00:00:00 Only Unassigned, ABAD 350.1.13.10 [place] [facility] 4.2.7.2.686 [id number] [id number] 2019-10-27 2019-10-27 Transition Rommel James 1.2.840.114 [id number] 00:00:00 00:00:00 of Care Columba Cummings [place] 350.1.13.10 [place] 4.2.7.2.686 [id number] 2019-10-26 2019-10-26 Emergency Davian Meng [facility] 1.2.840. 114 [id number] 16:26:10 21:53:00 Isiah Pelayo 350.1.13.10 [place] 4.2.7.2.686 [place] [id number] 084 2019-10-25 2019-10-25 [facility] [id number] 00:00:00 00:00:00 Management Kanwal Moore 350.1.13.10 [place] 4.2.7.2.686 [place] [id number] [facility] 204 [facility] 2019-10-20 2019-10-20 Office Nitza [place] 1.2.840.114 [id number] 16:02:06 16:30:07 Visit Benny Moore 350.1.13.10 [place] 4.2.7.2.686 [place] [phone] [facility] 204 [facility] Results Test Description Test Time Test Comments Results Result Sourc e Comments TISSUE EXAM 2019-04-24 Surgical Pathology Report 12:26:00 Case: [id number] Authorizing Provider: Dav Bernard MD Collected: 09/25/2014 1329 Ordering Location: [facility] Received: 09/25/2014 7268 SERVICES Pathologist: Jeanie Rg MD Specimen: Large Intestine, Colon - Right/Ascending, RIGHT COLON AND SMALL BOWEL The addendum is being issued to report the results of PDL1 testing and KRAS and NRAS testing by [employer] [facility].Please see scanned report for results.Addendum electronically signed [...] developed and its performance characteristics determined by [facility], Pathology Laboratory. It has not been [...] qualified to perform high complexity clinical laboratory testing.[id number], 46997 [id number] electronically signed by Sergio Bustillos MD on [...] pM cannot be determined from the submitted specimen(s)[id number], [id number], 81752 x5, [id number] cancerRight colon and small bowelSpecimen is received [...] developed and its performance characteristics determined by [facility], Pathology Laboratory. It has not been [...]
--- OUTSIDE RECORDS SUMMARY | 2020-03-19 19:52 | XMS REPORT | Clinical Summary ---
:1965 Author Organization [facility] Address [address] [place] [address] Care Team Providers Name Role Phone Unavailable [...] PANEL 04/17/2024 04/17/2019 Implants Implanted Type Area Search Marketing Coordinator Device Shelf Model / Identifier Expiration Serial / Date Lot Hemostat Vitagel Agent Surg - [id number] Cement/F [place] 12/04/[id number] / Implanted: Qty: 1 on 09/25/2014 by Dav Fernández MD at [facility] iller/Ad Orthopaedics / hesive [id number] Adhesion Barrier,Seprafilm 5x6 - [id number] Cement/F Right: KAITLYNN BACHE SURGICAL 12/03/2016 4301-02 / Implanted: Qty: 1 on 09/25/2014 by Dav Fernández MD at [facility] iller/Ad Abdomen PRODUCTS / hesive [id number] Results Not on fileafter 03/19/2019 Insurance Payer Benefit Plan / Subscriber ID Effective Dates Phone Addre ss Type Group BLUE BCBS PPO POS [id number] 2014-Beth [phone] [id number] PPO CROSS/BLUE EPO CHOICE t 2 [facility] [address] Advance Directives For more information, please contact: [phone] Code Status Date Activated Date Inactivated Comments Full Code 09/25/2014 2:22 PM 09/29/2014 3:32 PM This code status was determined by: Patient
--- OUTSIDE RECORDS SUMMARY | 2020-03-19 19:52 | XMS REPORT | Clinical Summary ---
:[address] 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
[2020-03-19] MEDS ORDERED: FENTANYL CITR 100 MCG/2 ML ONE (21:17)
[2020-03-19] MEDS ORDERED: ONDANSETRON 4 MG/2 ML VIAL ONE (21:17)
--- NOTE | 2020-03-19 21:20 | RAD REPORT ---
EXAM DESCRIPTION: RAD - Elbow Left 2 View - 03/19/2020 9:10 pm CLINICAL HISTORY: Left elbow pain status fall. FINDINGS: Limited two view series obtained No fracture or dislocation visualized. However there is elevation of the anterior humeral fat pad. This indicates a joint effusion. In the s etting of trauma this usually indicates an occult fracture.
--- NOTE | 2020-03-19 22:30 | ER ---
Nurse's Notes [facility] Name: Selma Balderas Age: 54 yrs Sex: Female : 1965 Arrival Date: 03/19/2020 Time: 19:59 Bed 4 Private MD: Diagnosis: Nondisplaced fracture of olecranon process without intraarticular extension of right ulna;Contusion of other part of head Presentation: 03/19 20:22 Chief complaint: Patient states: loss balance today after having chemo. for colon CA, em reports pain in the left elbow and left side of head, denies using blood thinners, denies LOC. Coronavirus screen: Client denies travel out of the [place] in the last 14 days. Ebola Screen: Patient negative for fever greater than or equal to 101.5 degrees Fahrenheit, and additional compatible Ebola Virus Disease symptoms Patient denies exposure to infectious person. Patient denies travel to an Ebola-affected area in the 21 days before illness onset. No symptoms or risks identified at this time. Initial Sepsis Screen: Does the patient meet any 2 criteria? HR > 90 bpm. No. Patient's initial sepsis screen is negative. Does the patient have a suspected source of infection? No. Patient's initial sepsis screen is negative. Risk Assessment: Do you want to hurt yourself or someone else? Patient reports no desire to harm self or others. Onset of symptoms was March 19, 2020. 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 - Social history:: Smoking status: Patient denies any tobacco usage or history of. Screenin:09 Abuse screen: Denies threats or abuse. Denies injuries from another. Nutritional rr5 screening: No deficits noted. Tuberculosis screening: No symptoms or risk factors identified. Fall Risk Fall in past 12 months (25 points). IV access (20 points). Total Donis Fall Scale indicates No Risk (0-24 pts). Assessment: 20:50 General: Appears in no apparent distress. uncomfortable, ill, Behavior is cooperative, rr5 anxious, crying. 20:50 Pain: Complains of pain in left elbow Pain currently is 10 out of 10 on a pain scale. rr5 Quality of pain is described as aching, Pain began suddenly, Is intermittent. Neuro: Level of Consciousness is awake, alert, obeys commands, Oriented to person, place, time, situation, Denies LOC. Cardiovascular: Capillary refill < 3 seconds Patient's skin is warm and dry. Respiratory: Airway is patent Respiratory effort is even, unlabored, Respiratory pattern is regular, symmetrical. GI: Abdomen is flat, non-distended. : No signs and/or symptoms were reported regarding the genitourinary system. EENT: No signs and/or symptoms were reported regarding the EENT system. Derm: Skin is intact, is healthy with good turgor, Skin temperature is warm Bruising that is dark purple, on left elbow. Musculoskeletal: Circulation, motion, and sensation intact. Capillary refill < 3 seconds, Swelling present in left elbow. 22:00 Reassessment: Patient appears in no apparent distress at this time. Patient is alert, rr5 oriented x 3, equal unlabored respirations, skin warm/dry/pink. awaiting for results. 23:00 Reassessment: Patient appears in no apparent distress at this time. Patient is alert, rr5 oriented x 3, equal unlabored respirations, skin warm/dry/pink. discharge instruction given and explained without complaints made Patient states symptoms have improved. 23:56 Reassessment: patient instructed to do ice compress for the first 24 hours, take the rr5 pain pill prescription and validated over the phone if there is any jewelry or ring in place patient denies any of it. Vital Signs: 20:22 BP 148 / 88; Pulse 134; Resp 20; Temp 97.9; Pulse Ox 94% on R/A; Weight 44.45 kg; em Height 5 ft. 5 in. (165.10 cm); Pain 10/10; 21:16 BP 141 / 91; Pulse 116; Resp 18; Pulse Ox 95% on R/A; mg2 22:00 BP 138 / 92; Pulse 110; Resp 20; Pulse Ox 98% ; rr5 23:00 BP 133 / 85; Pulse 105; Resp 19; Pulse Ox 99% ; rr5 20:22 Body Mass Index 16.31 (44.45 kg, 165.10 cm) em ED Course: 19:59 Patient arrived in ED. bp1 20:25 Triage completed. em 20:27 Arm band placed on. em 20:37 Matthieu Matthew MD is Attending Physician. tw4 20:54 Otto Todd, KIRK is Primary Nurse. rr5 21:09 Elbow Left 2 View In Process Unspecified. EDMS 21:09 Patient has correct armband on for positive identification. Bed in low position. Call rr5 light in reach. Side rails up X2. Pulse ox on. NIBP on. 21:10 Inserted saline lock: 20 gauge in right forearm, using aseptic technique. mg2 21:46 CT Head Brain wo Cont In Process Unspecified. EDMS 22:31 Liam wrap to left arm and left elbow Orthoglass splint: Sugar tong splint applied on jp3 left arm. Sling applied to left arm. 22:33 Seth Burrell MD is Referral Physician. tw4 22:33 Trevon Stafford MD is Referral Physician. tw4 23:00 No provider procedures requiring assistance completed. IV discontinued, intact, rr5 bleeding controlled, No redness/swelling at site. Pressure dressing applied. Administered Medications: 21:16 Drug: fentaNYL (PF) 100 mcg Route: IVP; Site: right forearm; mg2 22:15 Follow up: Response: No adverse reaction; Pain is decreased; RASS: Alert and Calm (0) rr5 21:16 Drug: Zofran (Ondansetron) 4 mg Route: IVP; Site: right forearm; mg2 22:15 Follow up: Response: No adverse reaction rr5 Outcome: 22:30 Discharge ordered by . tw4 23:00 Discharged to home via wheelchair. rr5 23:00 Condition: stable 23:00 Discharge instructions given to patient, Instructed on discharge instructions, follow up and referral plans. medication usage, Demonstrated understanding of instructions, follow-up care, medications, Prescriptions given X 1. 23:02 Patient left the ED. rr5 Signatures: Dispatcher [employer] EDMS rPo Bone RN RN Matthieu Matthew MD MD tw4 Yovani Martínez RN RN mg2 Dalton Craft jp3 Otto Todd RN RN rr5 Isa Guadalupe bp1 Corrections: (The following items were deleted from the chart) 21:17 21:16 BP 141 / 91; Pulse 116bpm; Resp 18bpm; Pulse Ox 93% RA; mg2 mg2
--- NOTE | 2020-03-19 22:31 | EDPHYS ---
Physician Documentation [facility] Name: Selma Balderas Age: 54 yrs Sex: Female : 1965 Arrival Date: 03/19/2020 Time: 19:59 Bed 4 Private MD: ED Physician Matthieu Matthew HPI: 03/20 02:44 This 54 yrs old Female presents to ER via Wheelchair with complaints of Fall tw4 Injury, Arm Injury. 02:44 Details of fall: The patient fell from an upright position. Onset: The symptoms/episode tw4 began/occurred just prior to arrival, yesterday. Associated injuries: The patient sustained left antecubital area and left elbow. Severity of symptoms: At their worst the symptoms were moderate, in the emergency department the symptoms are unchanged. The patient has not experienced similar symptoms in the past. 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 - Social history:: Smoking status: Patient denies any tobacco usage or history of. ROS: 03/20 02:44 Constitutional: Negative for fever, chills, and weight loss, Eyes: Negative for injury, tw4 pain, redness, and discharge, Cardiovascular: Negative for chest pain, palpitations, and edema, Respiratory: Negative for shortness of breath, cough, wheezing, and pleuritic chest pain, Abdomen/GI: Negative for abdominal pain, nausea, vomiting, diarrhea, and constipation, Back: Negative for injury and pain, Skin: Negative for injury, rash, and discoloration, Neuro: Negative for headache, weakness, numbness, tingling, and seizure. MS/extremity: Positive for injury or acute deformity, decreased range of motion, swelling, tenderness. Exam: 02:44 Constitutional: This is a well developed, well nourished patient who is awake, alert, tw4 and in no acute distress. Head/Face: Normocephalic, atraumatic. Chest/axilla: Normal chest wall appearance and motion. Nontender with no deformity. No lesions are appreciated. Cardiovascular: Regular rate and rhythm with a normal S1 and S2. No gallops, murmurs, or rubs. Normal PMI, no JVD. No pulse deficits. Respiratory: Lungs have equal breath sounds bilaterally, clear to auscultation and percussion. No rales, rhonchi or wheezes noted. No increased work of breathing, no retractions or nasal flaring. Abdomen/GI: Soft, non-tender, with normal bowel sounds. No distension or tympany. No guarding or rebound. No evidence of tenderness throughout. Neuro: Awake and alert, GCS 15, oriented to person, place, time, and situation. Cranial nerves II-XII grossly intact. Motor strength 5/5 in all extremities. Sensory grossly intact. Cerebellar exam normal. Normal gait. 02:44 Musculoskeletal/extremity: Extremities: noted in the left antecubital area and left elbow: contusion, decreased ROM, ecchymosis, pain. Vital Signs: 03/19 20:22 BP 148 / 88; Pulse 134; Resp 20; Temp 97.9; Pulse Ox 94% on R/A; Weight 44.45 kg; em Height 5 ft. 5 in. (165.10 cm); Pain 10/10; 21:16 BP 141 / 91; Pulse 116; Resp 18; Pulse Ox 95% on R/A; mg2 22:00 BP 138 / 92; Pulse 110; Resp 20; Pulse Ox 98% ; rr5 23:00 BP 133 / 85; Pulse 105; Resp 19; Pulse Ox 99% ; rr5 20:22 Body Mass Index 16.31 (44.45 kg, 165.10 cm) em MDM: 20:38 Patient medically screened. tw4 03/20 02:52 Differential diagnosis: abrasion, closed head injury, contusion. Data reviewed: vital tw4 signs, nurses notes. Data interpreted: Pulse oximetry: Interpretation: normal. Special discussion: I discussed with the patient/guardian in detail that at this point there is no indication for admission to the hospital. It is understood, however, that if the symptoms persist or worsen the patient needs to return immediately for re-evaluation. 03/19 20:54 Order name: CT Head Brain wo Cont tw4 03/19 21:07 Order name: Elbow Left 2 View; Complete Time: 22:28 EDMS Administered Medications: 03/19 21:16 Drug: fentaNYL (PF) 100 mcg Route: IVP; Site: right forearm; mg2 22:15 Follow up: Response: No adverse reaction; Pain is decreased; RASS: Alert and Calm (0) rr5 21:16 Drug: Zofran (Ondansetron) 4 mg Route: IVP; Site: right forearm; mg2 22:15 Follow up: Response: No adverse reaction rr5 Disposition: 03/19/20 22:30 Discharged to Home. Impression: Nondisplaced fracture of olecranon process without intraarticular extension of right ulna, Contusion of other part of head. - Condition is Stable. - Discharge Instructions: Contusion, Elbow Fracture, Pediatric, Head Injury, Adult, [id number]. - Prescriptions for Tylenol- Codeine #3 300-30 mg Oral Tablet - take 2 tablet by ORAL route every 6 hours As needed; 6 tablet. - Medication Reconciliation Form, Thank You Letter, Antibiotic Education, Prescription Opioid Use form. - Follow up: Private Physician; When: Upon discharge from the Emergency Department; Reason: If symptoms return, Recheck today's complaints, Continuance of care, Re-evaluation by your physician. Follow up: Seth Burrell MD; When: Upon discharge from the Emergency Department; Reason: Recheck today's complaints, Continuance of care, Re-evaluation by your physician. Follow up: Trevon Stafford MD; When: Upon discharge from the Emergency Department; Reason: Recheck today's complaints, Continuance of care, Re-evaluation by your physician. - Problem is new. - Symptoms have improved. Signatures: Dispatcher [employer] [facility] Pro Bone, Matthieu Mello RN, MD MD tw4 Yovani Martínez RN RN mg2 Otto Todd RN RN rr5 Corrections: (The following items were deleted from the chart) 21:07 20:57 Elbow Left 3 View+RAD.RAD.BRZ ordered. [facility] 22:30 22:30 03/19/2020 22:30 Discharged to Home. Impression: Nondisplaced fracture of tw4 olecranon process without intraarticular extension of right ulna. Condition is Stable. Forms are Medication Reconciliation Form, Thank You Letter, Antibiotic Education, Prescription Opioid Use. Follow up: Private Physician; When: Upon discharge from the Emergency Department; Reason: If symptoms return, Recheck today's complaints, Continuance of care, Re-evaluation by your physician. Problem is new. Symptoms have improved. tw4 22:33 22:30 03/19/2020 22:30 Discharged to Home. Impression: Nondisplaced fracture of tw4 olecranon process without intraarticular extension of right ulna; Contusion of other part of head. Condition is Stable. Forms are Medication Reconciliation Form, Thank You Letter, Antibiotic Education, Prescription Opioid Use. Follow up: Private Physician; When: Upon discharge from the Emergency Department; Reason: If symptoms return, Recheck today's complaints, Continuance of care, Re-evaluation by your physician. Problem is new. Symptoms have improved. tw4 23:02 22:33 03/19/2020 22:30 Discharged to Home. Impression: Nondisplaced fracture of rr5 olecranon process without intraarticular extension of right ulna; Contusion of other part of head. Condition is Stable. Discharge Instructions: Contusion, Elbow Fracture, Pediatric, Head Injury, Adult, [id number]. Prescriptions for Tylenol-Codeine #3 300-30 mg Oral Tablet - take 2 tablet by ORAL route every 6 hours As needed; 6 tablet. and Forms are Medication Reconciliation Form, Thank You Letter, Antibiotic Education, Prescription Opioid Use. Follow up: Private Physician; When: Upon discharge from the Emergency Department; Reason: If symptoms return, Recheck today's complaints, Continuance of care, Re-evaluation by your physician. Follow up: Seth Burrell; When: Upon discharge from the Emergency Department; Reason: Recheck today's complaints, Continuance of care, Re-evaluation by your physician. Follow up: Trevon Stafford; When: Upon discharge from the Emergency Department; Reason: Recheck today's complaints, Continuance of care, Re-evaluation by your physician. Problem is new. Symptoms have improved. tw4
--- NOTE | 2020-03-20 10:26 | RAD REPORT ---
EXAM DESCRIPTION: Head Brain Wo Cont CLINICAL HISTORY: 54 years Female TRAUMA COMPARISON: None TECHNIQUE: Images were obtained in axial, sagittal, and coronal planes. This exam was performed according to our departmental dose-optimization program which includes use of Automated Exposure Control, adjustment of the mA and/or kV according to patient size and/or use o f iterative reconstruction technique. FINDINGS: Ventricular system appears normal. No abnormal areas of increased attenuation seen. No extra-axial fluid collections noted. No evidence for skull fracture. Symmetric aeration mastoid air cells bilaterally. Unremarkable parana silke sinuses. IMPRESSION: No acute intracranial abnormality. No evidence for hemorrhage, mass lesion, or large acu te infarction. Electronically signed by: Manuela Dash MD 03/19/2020 10:03 PM [employer] Due to temporary technical issues with the PACS/Fluency reporting system, reports are being signed by the in house radiologist without review as a courtesy to ensure prompt reporting. The interpreting r adiologist is fully responsible for the content of the report.
[2020-03-21 21:49] VITALS: TEMP 97.9
[2020-03-21 21:53] VITALS: BP 141/91; O2SAT 95
== END 2020-03-19 23:02 | disposition home or self-care (01) ==
LOC: ER 19:50
PROC: 2W38X1Z Immobilization of Right Upper Extremity using Splint (ICD-10-PCS; principal; 2020-03-19)
DX: S52.024A Nondisplaced fracture of olecranon process without intraarticular extension of right ulna, initial encounter for closed fracture (principal); S00.83XA Contusion of other part of head, initial encounter; W19.XXXA Unspecified fall, initial encounter; Y93.9 Activity, unspecified; Y92.9 Unspecified place or not applicable; Z88.8 Allergy status to other drugs, medicaments and biological substances; Z85.118 Personal history of other malignant neoplasm of bronchus and lung; Z85.038 Personal history of other malignant neoplasm of large intestine; Z85.528 Personal history of other malignant neoplasm of kidney
CPT/HCPCS: 70450; 73070; 29105; J3010; J2405; 96374; 96375; 99284

== ENCOUNTER 2020-06-20 11:02 | Emergency (ER) | payer BC ==
--- OUTSIDE RECORDS SUMMARY | 2020-06-20 11:05 | XMS REPORT | Continuity of Care Document ---
:1965 Author Organization [facility] t Address [address] Jaramillo. [address] [place] [id number] Care Team Providers Name Role Phone Enrique Pace DO Attending Clinician Vltc, Care Attending Clinician Unavailable Nitza LINARES Attending Clinician Doctor Unassigned, Name Attending Clinician Unavailable Erika BRADLEY, L Attending Clinician Unavailable Estephania NOEL, G Attending Clinician Matt LINARES Attending Clinician Edmund LINARES, J Attending Clinician Kenneth Bejarano DO Attending Clinician Radiology Attending Clinician Unavailable Attending Clinician Gita LINARES S Attending Clinician Jorge Clifford Attending Clinician Pavel SANDOVAL Attending Clinician Unavailable Ruthann Shaffer MD Admitting Clinician Pavel SANDOVAL Admitting Clinician Unavailable Payers Payer Name Policy Type Policy Number Effective Date Expiration Date S ource Problems Condition Condition Condition Status Onset Resolution Last Treating Co mments Source Name Details Category Date Date Treatment Clinician Date Colon Colon Disease Active [facility] St [facility] 6[facility] Allergies, Adverse Reactions, Alerts Allergy Allergy Status Severity Reaction(s) Onset Inactive Treating Comm ents Source Name Type Date Date Clinician No Known DA Active U 2019-04 [facility] [place] [facility] No Known DA Active U 2019-04 [facility] Allergie 2-18 [place] s 00:00: Dominique 00 [facility] Social History Social Habit Start Date Stop Date Quantity Comments Source Sex Assigned At [facility] Smoking Status Start Date Stop Date Source Never smoker [facility] Medications Ordered Filled Start Stop Current Ordering Indication Dosage Frequency Signature Comments Components Source Medication Medication Date Date Medication? Clinician (SIG) Name Name enoxaparin Yes 40mg Q24H Inject 0.[address] (LOVENOX) 6-27 mLs (40 mg [facility] us[facility]. Procedures This patient has no known procedures. Plan of Care Planned Activity Planned Date Details Comments Source Future Scheduled 2024-04-[address] [facility]00 (procedure) [code = [facility] 91925664] Future Scheduled 2019-12-[address] [facility] - Test 00:00:00 (#1) [code = [facility] INFLUENZA VACCINE (#1)] Future Scheduled 1987-07-[address] [facility] 00:00:00 malignant neoplasm Medical C enter of cervix (procedure) [code = 484895251] Future Scheduled [address] [facility] Test 00:00:00 malignant neoplasm Medical C enter of breast (procedure) [code = 640476494] Future Scheduled [address] [facility] - Test 00:00:00 malignant neoplasm Medical C enter of colon (procedure) [code = 210713821] Encounters Start End Encounter Admission Attending Care Care Encounter Source Date/Time Date/Time Type Type Clinicians Facility Department ID 2020-06-18 2020-06-18 Patient [facility] [id number] 00:00:00 00:00:00 Outreach Eder PRIMARY [id number] Enrique CARE 4.2.7.2.686 PAVILLION [id number] 2020-06-13 2020-06-13 Letter [facility] [id number] 00:00:00 00:00:00 (Out) Palliative MULTISPEC [id number] Care IAGLENNY 4.2.7.2.686 CENTER [id number] AND [facility] 2020-06-11 2020-06-11 [facility] [id number] 11:00:00 23:59:00 Encounter Benny SPECIALTY [id number] CARE 4.2.7.2.686 CENTER AT [id number] ADÁN 803 [facility] 2020-06-09 2020-06-09 Orders Doctor GENESIS 1.2.840.114 [id number] 00:00:00 00:00:00 Only Unassigned, ABAD [id number] [place] [facility] 4.2.7.2.686 [id number] 2020-05-24 2020-05-24 Transition Rommel James 1.2.840.114 [id number] 00:00:00 00:00:00 of Care Columba Castañeda [id number] [place] 4.2.7.2.686 [id number] 2020-05-16 2020-05-23 [facility] Lisa Best 1.2.840. 114 [id number] 19:29:00 18:19:00 Encounter Chadwick Gutierrez [id number] [facility] 4.2.7.2.686 Rashawn Shaffer [id number] Sissy Bejarano Kenneth 095 Rashawn Shaffer 2020-04-02 2020-04-02 [facility] Radiology [facility] 1.2.840.114 [id number] 16:23:10 23:59:00 Encounter [place] [id number] [place] 4.2.7.2.686 [place] [id number] 2020-04-02 2020-04-02 [facility] Radiology [facility] 1.2.840.114 [id number] 16:22:39 16:22:39 Encounter [place] [id number] [place] 4.2.7.2.686 [place] [id number] [id number] 2020-04-02 2020-04-02 Orders Doctor HURTADO 1.2.840.114 [id number] 00:00:00 00:00:00 Only Unassigned, ABAD [id number] [place] [facility] 4.2.7.2.686 [id number] 2020-03-22 2020-03-22 Telephone [facility] 1.2.840.114 [id number] 00:00:00 00:00:00 Benny [place] [id number] [place] 4.2.7.2.686 Profess [id number] [address] 2020-03-13 2020-03-13 [facility] [id number] 10:04:18 23:59:00 Encounter Benny SPECIALTY [id number] [facility] 4.2.7.2.686 CENTER AT [id number] ADÁN 803 [facility] 2019-12-13 2019-12-13 [facility] [id number] 09:38:31 23:59:00 Encounter Benny SPECIALTY [id number] [facility] 4.2.7.2.686 CENTER AT [id number] ADÁN 803 [facility] 2019-11-10 2019-11-10 Orders Doctor GENESIS 1.2.840.114 [id number] 00:00:00 00:00:00 Only Unassigned, ABAD 350.1.13.10 [place] [facility] 4.2.7.2.686 [id number] 2019-10-27 2019-10-27 Transition Rommel James 1.2.840.114 [id number] 00:00:00 00:00:00 of Care Columba Castañeda [id number] [place] 4.2.7.2.686 [id number] 2019-10-26 2019-10-26 Emergency Davian Meng [facility] 1.2.840. 114 [id number] 16:26:10 21:53:00 Isiah Pelayo 350.1.13.10 [place] 4.2.7.2.686 [place] [id number] 2019-10-25 2019-10-25 Case Jeremy [facility] 1.2.840.114 [id number] 00:00:00 00:00:00 Management Kanwal Moore 350.1.13.10 [place] 4.2.7.2.686 Professio [id number] [facility] 204 [facility] 2019-10-20 2019-10-20 [facility] 1.2.840.114 [id number] 16:02:06 16:30:07 Visit Benny [place] 350.1.13.10 [place] 4.2.7.2.686 Professio [id number] [facility] 204 [facility] Results Test Description Test Time Test Comments Results Result Comments Source Novel Coronavirus 2019 Inhouse 2020-03-23 18:15:00 Test Item Value Reference Range Interpretation Comme nts Novel Coronavirus 2019 Negative Negative Posit alexandre results are indicative of the Inhouse (test code = presenc e bnHTOG-NxT-6 RNA, clinical COVNONPUI) correlation wit h patient historyand other diagnosti c information is necessary to de terminepatient infection status. Positiv e results do not rule outbacterial in fection or co-infection with other viru ses. Negative results do not preclude SA RS-CoV-2 infection andshould not b e used as the sole basis for patient man agementdecisions. Negative result s must be combined with otherclinical o bservations, patient history, and ep idemiologicalinformation. Detection of SA RS-CoV-2 RNA may be affected bysamp le collection methods, storage conditi ons, and/or stageof infection. Elvie l RNA mutations, vaccinations, a ntiviraltherapeutics, antibiotics, ch emotherapeutic orimmunosuppres gagan drugs have not been evaluated for e ffectson detection. Results are for the identification of SARS-CoV-2 RNA usingthe [employer] M2000 System under th e FDA Emergency UseAuthorizatio n. The testing is performed by faisal kaye in the procedures for the [employer] M2000 moleculardiagno stic SARS-CoV-2 assay in vitro. Novel Coronavirus 2018 [id number] 18:15:00 Test Item Value Reference Range Interpretation Comments Novel Coronavirus Negative Negative Positive r esults are 2019 Inhouse (test indicativ e of the presence code = COVNONPUI) ofSARS-CoV -2 RNA, clinical correlation wit h patient historyand othe r diagnostic info rmation is necessary to determinepatien t infection status. Positiv e results do not rule out bacterial infection or co -infection with other viru ses. Negative result s do not preclude SARS-C oV-2 infection andsh ould not be used as the gypsy e basis for patient managementdecis ions. Negative result s must be combined with otherclinical observations, p atient history, and epidemiological information . Detection of SARS-CoV-2 RNA may be affe cted bysample collec tion methods, storag e conditions, and /or stageof infection. Elvie l RNA mutations, vacc inations, antiviraltherap eutics, antibiotics, chemotherapeuti c orimmunosuppres gagan drugs have not been e valuated for effectson d etection. Results are for the identification of SARS-CoV-2 RNA usingthe [employer] M2000 Sy stem under the [facility] Emergen cy UseAuthorizatio n. The testing is perf ormed by christine lucero in the procedures for the [employer] molecular diagnostic SARS-CoV-2 assa y in vitro. PROTHROMBIN [id number] 19:06:00 Test Item Value Reference Range Interpretation Comments PROTHROMBIN TIME 11.3 secs 10.1-12.5 N PATIENT (test code = PTP) INTERNATIONAL NORMAL 0.99 <2.0 RECOMME NDED THERAPEUTIC RATIO (test code = RANGE FOR ORAL INR) ANTICOAGULANTTR EATMENT: CONDI TION INRProphylaxis of venous thrombos is in 2.0 - 3.0 high-risk medic al or surgical patientsTreatme nt of venous thrombos is 2.0 - 3.0Prevention o f embolism 2.0 - 3.0Prevention o f recurrent embol ism, or 3.0 - 4. 5 patients with mechanical pros thetic intravascular v amin IS PATIENT ON ANTICOAGULANTS ? NHas Lab been notified if Patient is on Heparin Drip? NOIf Yes, orderCBC, OCCULT BLOOD, PT every other day NTHROMBOPLASTIN TIME [id number] 19:06:00 Test Item Value Reference Range Interpretation Comments PTT ACTIVATED (test code = APTT) 34.3 secs 24.9-37.0 N IS PATIENT ON ANTICOAGULANTS ? NHas Lab been notified if Patient is on Heparin Drip? NOIf Yes, orderCBC, OCCULT BLOOD, PT every other day NTISSUE EXAM 2019-04-24 12:26:00Surgical Pathology Report Case: [id number] Authorizing Provider: Dav Bernard MD Collected: 09/25/2014 1329 Ordering Location: [facility] Received: 09/25/2014 1518 SERVICES Pathologist: Jeanie Rg MD Specimen: Large Intestine, Colon - Right/Ascending, RIGHT COLON AND SMALL BOWEL The addendum is being issued to report the results of PDL1 testing and KRAS and NRAS testing by [facility].Please see scanned report for results.Addendum electronically signed by Sergio Bustillos MD on 04/24/2019 at 12:26 PMThe addendum is being issued to report the results of immunohistochemistry (IHC) testing for Mismatch Repair (MMR) Proteins, which has been performed on the colon cancer at the requestof the oncologist, Dr Larson.The diagnosis remains unchanged.IHC [...] with genetic counseling is recommended to assess theneed for germline testing.Immunohistochemistry disclaimer:The immunohistochemistry test was developed and its performance characteristics determined by [facility], Pathology Laboratory. It has not been cleared or approved by the U.S. Food and Drug Administration. The FDA has determined that such clearance or approval is not necessary. The test is used for clinical purposes. It should not be regarded as investigational or for research. This laboratory is certified under the ClinicalLaboratory Improvement Amendments of 1988 (CLIA-88) as qualified to perform high complexity clinicallaboratory testing.17354, [id number] electronically signed by Sergio Bustillos MD on 10/05/2016 at 6:20 PMRIGHT/ASCENDING COLON, PORTION OF SMALL BOWEL, EXCISION: COLON: ADENOCARCINOMA WITH INFILTRATION INTO PERICOLONIC ADIPOSE TISSUE METASTATIC CARCINOMA IN ONE OF TWENTY-ONE LYMPH NODES (/) EXCISION MARGINS: NEGATIVE FOR CARCINOMA PORTION OF [...] Tumor Perforation: Not identifiedTUMOR Histologic Type: Adenocarcinoma Hist ologic Grade: Low-grade (well differentiated to moderately differentiated) [...] pM cannot be determined from the submitted specimen(s)[id number], [id number], [id number] x5, [id number] cancerRight colon and small bowelSpecimen is received in a formalin-filled container labeled with the patient's information and "right colon and small bowel." It consists of a right hemicolectomy and a portion of smallbowel. The hemicolectomy has the following components: colon (23 cm length, 6.9 cm circumference), terminal ileum (2 cm length, 2.6 cm circumference), unremarkable appendix (7 cm length, 0.5 cm diameter). A separate, detached portion of small bowel (30 cm length, 4.3 cm circumference) is also present.Its ends are adhesed to one another. The right colon contains a centrally ulcerated mass with heapedup borders (4 x 3.4 x 1 cm) located 6.6 cm from the distal margin and 9.6 cm from the proximal margin. The mass involves the underlying colon wall. There are no additional lesions. The small bowel has no distinct mass lesions. Dissection of adipose tissue reveals multiple lymph nodes (0.2 to 1.5 cm ingreatest dimension).Ink code: black-serosa underlying massSection code: A1, [...] of a focus of atypical cells in s erosa of the separate segment of small bowel are as follows: Positive: ck5/6 Negative: MOC31, calretinin, p40 CD31, D2-40 highlight lymphovascular spacesThe above mentioned focus is consistent with reactive mesothelial cells.The focus of metastatic carcinoma in a pericolonic lymph nodes measures 1.4 cm. Extracapsular extension is not identified. The tumor is ulcerated and associated with abscess. Itis at 0.15 cm from the serosal surface.The following special studies were performed on this case andthe interpretation is incorporated in the diagnostic report above:Block A22 Immunohistochemical stains: MOC31, calretinin, ck5/6, p40, CD31, D2-40The immunohistochemistry test was developed and its performance characteristics determined by [facility], Pathology Laboratory. It has notbeen cleared or approved by the U.S. Food [...]
[2020-06-20] MEDS ORDERED: NA CHLORIDE 0.9% 1,000 ML ONE (11:41)
--- NOTE | 2020-06-20 11:46 | RAD REPORT ---
EXAM DESCRIPTION: CT - Head Brain Wo Cont - 06/20/2020 11:33 am CLINICAL HISTORY: TRAUMA Fall, head injury COMPARISON: Head Brain Wo Cont dated 03/19/2020; HEAD BRAIN W O CONTRAST dated 01/16/2014 TECHNIQUE: All CT scans are performed using dose optimization technique as appropriate and may inclu de automated exposure control or mA/KV adjustment according to patient size. FINDINGS: No intracranial hemorrhage, hydrocephalus or extra-axial fluid collection.No areas of brai n edema or evidence of midline shift. The paranasal sinuses and mastoids are clear. The calvarium is intact. IMPRESSION: No acute intracranial abnormality.
[2020-06-20 12:46] LABS: Absolute Lymphocytes (CBC) 0.4 K/uL (0.7-4.9); Basophils % 0.4 % (0-1.3); Lymphocytes % 2.9 % (15.3-44.8); MPV 8.2 fL (7.6-11.3)
[2020-06-20 13:00] LABS: BUN Blood Urea Nitrogen 9 mg/dL (7-18); Bicarbonate 25 mmol/L (21-32); Glucose Level 126 mg/dL (74-106); Potassium 4.2 mmol/L (3.5-5.1); Sodium Level 129 mmol/L (136-145)
[2020-06-20 13:29] LABS: Anisocytosis 2+; Blood Morphology Comment NOTED (NOT SEEN); Macrocytosis SLIGHT; Platelet Estimate ADEQ; Polychromasia SLIGHT
--- NOTE | 2020-06-20 13:29 | ER ---
Nurse's Notes [facility] Name: Selma Balderas Age: 54 yrs Sex: Female : 1965 Arrival Date: 06/20/2020 Time: 11:04 Bed 4 Private MD: Diagnosis: Contusion of other part of head;Concussion without loss of consciousness;Abrasion of right hand Presentation: 06/20 11:05 Chief complaint: EMS states: Fall from standing while outdoors taking pictures, landed hb on concrete onto right side, c/o right hip pain and headache 10/12. Hx of Stage 4 colon CA, on hospice, took Morphine IV, morphine PO, and hydrocodone 1 hr prior to fall, reports blurred vision and feeling dizzy just before fall. HR 130-150s, ST + PVCs on 12 lead, SpO2 92% on RA, improved to 97% on 3L NC. Denies LOC. Care prior to arrival: Cervical collar in place. Oxygen administered. via nasal cannula. Mechanism of Injury: Fall from standing position. Trauma event details: Injury occurred in the [facility], Injury occurred: at home. Injury occurred: June 20, 2020. 11:05 Acuity: DANIS 3 hb 11:05 Method Of Arrival: EMS: [facility] hb 11:09 Coronavirus screen: At this time, the client does not indicate any symptoms associated hb with coronavirus-19. Ebola Screen: No symptoms or risks identified at this time. Initial Sepsis Screen: Does the patient meet any 2 criteria? No. Patient's initial sepsis screen is negative. Does the patient have a suspected source of infection? No. Patient's initial sepsis screen is negative. Risk Assessment: Do you want to hurt yourself or someone else? Patient reports no desire to harm self or others. Onset of symptoms was June 20, 2020. Trauma Activation: Not Applicable Physician: ED Physician; Name: ; Notified At: ; Arrived At: Physician: General Surgeon; Name: ; Notified At: ; Arrived At: Physician: Radiology; Name: ; Notified At: ; Arrived At: Physician: Respiratory; Name: ; Notified At: ; Arrived At: Physician: Lab; Name: ; Notified At: ; Arrived At: Historical: - Allergies: 11:13 "some chemo medication"; hb - Home Meds: 11:13 Tussin DM oral oral [Active]; hydrocodone [Active]; Oxycodone HCl Oral [Active]; hb Dicyclomine Oral [Active]; Morphine Oral [Active]; olanzapine oral oral [Active]; venlafaxine oral [Active]; Lorazepam Oral [Active]; - PMHx: 11:13 Cancer; COLON CA WITH METS TO LUNG AND KIDNEY; colon cancer; hb - PSHx: 11:13 Colon Surgery; suprapubic catheter; hb - Immunization history:: Adult Immunizations. - Social history:: Smoking status: Patient denies any tobacco usage or history of. - Immunization history: Last tetanus immunization: - up to date. Screenin:05 Abuse screen: Denies threats or abuse. Denies injuries from another. hb 11:14 Tuberculosis screening: No symptoms or risk factors identified. Fall Risk No fall in sv past 12 months (0 pts). No secondary diagnosis (0 pts). No IV (0 pts). Ambulatory Aid- None/Bed Rest/Nurse Assist (0 pts). Gait- Normal/Bed Rest/Wheelchair (0 pts) Mental Status- Oriented to own ability (0 pts). Total Donis Fall Scale indicates No Risk (0-24 pts). 11:19 Nutritional screening: Had unintentional weight loss of 10 pounds or more. hb Primary Survey: 11:05 NO uncontrolled hemorrhage observed. A: The patient is alert. Airway: patent, Oxygen hb via nasal cannula at 2 liters per minute. Breathing/Chest: Respiratory pattern: regular, Respiratory effort: spontaneous, unlabored, Chest inspection: symmetrical rise and fall of the chest. Circulation: Cardiac rhythm: sinus tachycardia Pulses: palpable . Skin color: pink, pale. Disability Alert. Exposure/Environment: There is no evidence of uncontrolled external bleeding. A warming method has been applied: A warm blanket has been provided to the patient. 12:00 Reassessment Airway Airway Patent Breathing/Chest Respiratory pattern Regular hb Respiratory effort Spontaneous Unlabored Chest inspection Symmetrical Circulation Color [place] Pale Disability Alert. 13:00 Reassessment Airway Airway Patent Breathing/Chest Respiratory pattern Regular hb Respiratory effort Spontaneous Unlabored Chest inspection Symmetrical Circulation Color [place] Pale Disability Alert. 14:00 Reassessment Airway Airway Patent Breathing/Chest Respiratory pattern Regular hb Respiratory effort Spontaneous Unlabored Circulation Color [place] Pale Disability Alert. Secondary Survey: 11:05 HEENT: Head Other swelling noted to right side of head. Gastrointestinal: No deficits hb noted. : No deficits noted. No signs and/or symptoms were reported regarding the genitourinary system. Musculoskeletal: abrasions noted to right hand and right forearm Reports right hip pain. Assessment: 11:16 General: Appears in no apparent distress. Behavior is calm, cooperative. Pain: Pain hb currently is 7 out of 10 on a pain scale. Neuro: Level of Consciousness is awake, alert, obeys commands, Oriented to person, place, time, situation. EENT: No signs and/or symptoms were reported regarding the EENT system. Cardiovascular: Capillary refill < 3 seconds Patient's skin is warm and dry. Rhythm is sinus tachycardia. Respiratory: Respiratory effort is even, unlabored, Respiratory pattern is regular, symmetrical. GI: No signs and/or symptoms were reported involving the gastrointestinal system. : No signs and/or symptoms were reported regarding the genitourinary system. suprapubic catheter in place to gravity drainage. Derm: Skin is thin, with poor turgor Skin is dry, Skin is pale, pink, Skin temperature is warm Wound noted Other: abrasions noted to right hand, right forearm, right elbow. Musculoskeletal: Reports right hip pain. 12:00 Reassessment: Patient appears in no apparent distress at this time. No changes from hb previously documented assessment. Patient and/or family updated on plan of care and expected duration. Pain level reassessed. Patient is alert, oriented x 3, equal unlabored respirations, skin warm/dry/pink. 13:00 Reassessment: Patient appears in no apparent distress at this time. Patient and/or hb family updated on plan of care and expected duration. Pain level reassessed. Patient is alert, oriented x 3, equal unlabored respirations, skin warm/dry/pink. 14:00 Reassessment: Patient appears in no apparent distress at this time. Patient and/or hb family updated on plan of care and expected duration. Pain level reassessed. Patient is alert, oriented x 3, equal unlabored respirations, skin warm/dry/pink. Vital Signs: 11:09 Pulse 130; Resp 17; Temp 97.2; Pulse Ox 93% on R/A; Weight 38.56 kg; Pain 7/10; hb 11:12 BP 139 / 80; sv 12:00 BP 136 / 78; Pulse 118; Resp 17; Pulse Ox 98% on 2 lpm NC; hb 12:35 BP 145 / 95; Pulse 108; Resp 18; Pulse Ox 100% ; sv 13:11 BP 136 / 82; Pulse 107; Resp 19; Pulse Ox 100% ; sv 14:00 BP 125 / 76; Pulse 105; Resp 14; Pulse Ox 93% on R/A; hb 14:00 Pulse Ox 97% on 2 lpm NC; hb [place] Com[place] Score: 11:12 Eye Response: spontaneous(4). Verbal Response: oriented(5). Motor Response: obeys sv commands(6). Total: 15. Trauma Score (Adult): 11:12 Eye Response: spontaneous(1); Verbal Response: oriented(1); Motor Response: obeys sv commands(2); Systolic BP: > 89 mm Hg(4); Respiratory Rate: 10 to 29 per min(4); [place] Score: 15; Trauma Score: 12 12:00 Eye Response: spontaneous(1); Verbal Response: oriented(1); Motor Response: obeys hb commands(2); Systolic BP: > 89 mm Hg(4); Respiratory Rate: 10 to 29 per min(4); [place] Score: 15; Trauma Score: 12 12:36 Eye Response: spontaneous(1); Verbal Response: oriented(1); Motor Response: obeys sv commands(2); Systolic BP: > 89 mm Hg(4); Respiratory Rate: 10 to 29 per min(4); [place] Score: 15; Trauma Score: 12 13:11 Eye Response: spontaneous(1); Verbal Response: oriented(1); Motor Response: obeys sv commands(2); Systolic BP: > 89 mm Hg(4); Respiratory Rate: 10 to 29 per min(4); [place] Score: 15; Trauma Score: 12 14:00 Eye Response: spontaneous(1); Verbal Response: oriented(1); Motor Response: obeys hb commands(2); Systolic BP: > 89 mm Hg(4); Respiratory Rate: 10 to 29 per min(4); Ivania Score: 15; Trauma Score: 12 ED Course: 10:02 EKG done, by ED staff, reviewed by Matthieu Matthew MD. sv 11:04 Patient arrived in ED. hb 11:07 Matthieu Matthew MD is Attending Physician. tw4 11:09 Triage completed. hb 11:12 Patient has correct armband on for positive identification. Bed in low position. Call sv light in reach. Side rails up X2. electronic device monitor on. Pulse ox on. NIBP on. Door closed. Warm blanket given. Head of bed elevated. 11:13 Oxygen administration via nasal cannula \\T\\ 3L/min. sv 11:13 Thermoregulation: warm blanket given to patient. sv 11:13 Arm band placed on. hb 11:33 CT Head Brain wo Cont In Process Unspecified. EDMS 12:17 Marianna Enciso, RN is Primary Nurse. hb 12:31 Accessed Port-a-Cath. using accessed w/ # 20 Ren needle, ,sterile technique, Clean \\T\\ sr5 dry. Dressing intact. Good blood return. Flushes easily. 12:37 Initial lab(s) drawn, by me, sent to lab. sr5 14:17 IV discontinued, Port-a-cath LEFT chest, hub cleaned with alcohol scrub, flushed with sr5 NS 20 mL, flushed with 400 units Heparin, deaccessed, sterile gauze and Tegaderm applied. 14:22 No provider procedures requiring assistance completed. sv 14:22 see above note. sv Administered Medications: 12:18 Drug: NS 0.9% 1000 ml Route: IV; Rate: 1 bolus; Site: Port-a-cath; hb Intake: 11:12 PO: 0ml; Total: 0ml. sv 12:00 PO: 0ml; Total: 0ml. sv 12:36 PO: 0ml; Total: 0ml. sv 13:11 PO: 0ml; Total: 0ml. sv Output: 11:12 Urine: 0ml; Total: 0ml. sv 12:00 Urine: 0ml; Total: 0ml. sv 12:36 Urine: 0ml; Total: 0ml. sv 13:11 Urine: 0ml; Total: 0ml. sv Outcome: 13:28 Discharge ordered by . tw4 14:22 Discharged to home via wheelchair. sv 14:22 Condition: stable 14:22 Discharge instructions given to patient, Instructed on discharge instructions, follow up and referral plans. Demonstrated understanding of instructions, follow-up care. 14:23 Patient left the ED. sv Signatures: Dispatcher [employer] Serina Stoll, RN RN sv Marainna Encsio RN RN hb Sagar Mcnair RN RN sr5 Matthieu Matthew MD MD tw4 Corrections: (The following items were deleted from the chart) 14:34 14:19 BP 125 / 76; Pulse 105bpm; Resp 14bpm; Pulse Ox 93% RA; sr5 hb 14:34 14:19 Pulse Ox 97% 2 lpm Nasal Cannula; sr5 hb
--- NOTE | 2020-06-20 13:29 | EDPHYS ---
Physician Documentation [facility] Name: Selma Balderas Age: 54 yrs Sex: Female : 1965 Arrival Date: 06/20/2020 Time: 11:04 Bed 4 Private MD: ED Physician Matthieu Matthew HPI: 06/20 18:16 This 54 yrs old Female presents to ER via EMS with complaints of Fall Injury. tw4 18:16 Details of fall: The patient fell from an upright position, while standing. Onset: The tw4 symptoms/episode began/occurred just prior to arrival, today. Associated injuries: The patient sustained injury to the head, dorsal aspect of proximal phalanx of right index finger, dorsal aspect of proximal phalanx of right middle finger and dorsal aspect of proximal phalanx of right ring finger. Severity of symptoms: At their worst the symptoms were moderate, in the emergency department the symptoms are unchanged. The patient has not experienced similar symptoms in the past. 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 - Social history:: Smoking status: Patient denies any tobacco usage or history of. - Immunization history: Last tetanus immunization: - up to date. ROS: 18:16 Constitutional: Negative for fever, chills, and weight loss, Eyes: Negative for injury, tw4 pain, redness, and discharge, Cardiovascular: Negative for chest pain, palpitations, and edema, Respiratory: Negative for shortness of breath, cough, wheezing, and pleuritic chest pain, Abdomen/GI: Negative for abdominal pain, nausea, vomiting, diarrhea, and constipation, Skin: Negative for injury, rash, and discoloration, Neuro: Negative for headache, weakness, numbness, tingling, and seizure. 18:16 MS/extremity: Positive for injury or acute deformity, abrasion, pain, swelling, tenderness. Exam: 18:16 Constitutional: This is a well developed, well nourished patient who is awake, alert, tw4 and in no acute distress. Head/Face: Normocephalic, atraumatic. Chest/axilla: Normal chest wall appearance and motion. Nontender with no deformity. No lesions are appreciated. Cardiovascular: Regular rate and rhythm with a normal S1 and S2. No gallops, murmurs, or rubs. Normal PMI, no JVD. No pulse deficits. Respiratory: Lungs have equal breath sounds bilaterally, clear to auscultation and percussion. No rales, rhonchi or wheezes noted. No increased work of breathing, no retractions or nasal flaring. Abdomen/GI: Soft, non-tender, with normal bowel sounds. No distension or tympany. No guarding or rebound. No evidence of tenderness throughout. Skin: Warm, dry with normal turgor. Normal color with no rashes, no lesions, and no evidence of cellulitis. MS/ Extremity: Pulses equal, no cyanosis. Neurovascular intact. Full, normal range of motion. Neuro: Awake and alert, GCS 15, oriented to person, place, time, and situation. Cranial nerves II-XII grossly intact. Motor strength 5/5 in all extremities. Sensory grossly intact. Cerebellar exam normal. Normal gait. Vital Signs: 11:09 Pulse 130; Resp 17; Temp 97.2; Pulse Ox 93% on R/A; Weight 38.56 kg; Pain 7/10; hb 11:12 BP 139 / 80; sv 12:00 BP 136 / 78; Pulse 118; Resp 17; Pulse Ox 98% on 2 lpm NC; hb 12:35 BP 145 / 95; Pulse 108; Resp 18; Pulse Ox 100% ; sv 13:11 BP 136 / 82; Pulse 107; Resp 19; Pulse Ox 100% ; sv 14:00 BP 125 / 76; Pulse 105; Resp 14; Pulse Ox 93% on R/A; hb 14:00 Pulse Ox 97% on 2 lpm NC; hb [place] Coma Score: 11:12 Eye Response: spontaneous(4). Verbal Response: oriented(5). Motor Response: obeys sv commands(6). Total: 15. Trauma Score (Adult): 11:12 Eye Response: spontaneous(1); Verbal Response: oriented(1); Motor Response: obeys sv commands(2); Systolic BP: > 89 mm Hg(4); Respiratory Rate: 10 to 29 per min(4); [place] Score: 15; Trauma Score: 12 12:00 Eye Response: spontaneous(1); Verbal Response: oriented(1); Motor Response: obeys hb commands(2); Systolic BP: > 89 mm Hg(4); Respiratory Rate: 10 to 29 per min(4); [place] Score: 15; Trauma Score: 12 12:36 Eye Response: spontaneous(1); Verbal Response: oriented(1); Motor Response: obeys sv commands(2); Systolic BP: > 89 mm Hg(4); Respiratory Rate: 10 to 29 per min(4); [place] Score: 15; Trauma Score: 12 13:11 Eye Response: spontaneous(1); Verbal Response: oriented(1); Motor Response: obeys sv commands(2); Systolic BP: > 89 mm Hg(4); Respiratory Rate: 10 to 29 per min(4); [place] Score: 15; Trauma Score: 12 14:00 Eye Response: spontaneous(1); Verbal Response: oriented(1); Motor Response: obeys hb commands(2); Systolic BP: > 89 mm Hg(4); Respiratory Rate: 10 to 29 per min(4); [place] Score: 15; Trauma Score: 12 MDM: 11:07 Patient medically screened. tw4 18:16 Differential diagnosis: abrasion, closed head injury, contusion. Data reviewed: vital tw4 signs, nurses notes. Data interpreted: Pulse oximetry: Interpretation: normal. Counseling: I had a detailed discussion with the patient and/or guardian regarding: the historical points, exam findings, and any diagnostic results supporting the discharge/admit diagnosis. Special discussion: I discussed with the patient/guardian in detail that at this point there is no indication for admission to the hospital. It is understood, however, that if the symptoms persist or worsen the patient needs to return immediately for re-evaluation. 06/20 11:15 Order name: CBC with Diff; Complete Time: 13:56 tw4 06/20 13:27 Interpretation: Normal except: WBC 12.80; RBC 3.70; HGB 10.4; HCT 33.0; MCV 89.1; MCHC tw4 31.4; PLT 587; LYMA 0.4; NEUT A 11.6; LYM% 2.9; BHAVANI% 90.6; RDW 20.7. 06/20 11:15 Order name: BMP tw 06/20 13:27 Interpretation: Normal except: NA 129; CL 90; GLUC 126; CRE 0.51. tw4 06/20 11:15 Order name: CT Head Brain wo Cont; Complete Time: 12:32 tw 06/20 12:58 Order name: Manual Differential; Complete Time: 13:56 EDWI 06/20 13:56 Interpretation: LYM 6; SEGS 88. tw4 Administered Medications: 12:18 Drug: NS 0.9% 1000 ml Route: IV; Rate: 1 bolus; Site: Port-a-cath; Disposition: 06/20/20 13:28 Discharged to Home. Impression: Contusion of other part of head, Concussion without loss of consciousness, Abrasion of right hand. - Condition is Stable. - Discharge Instructions: Contusion, Post-Concussion Syndrome, Head Injury, Adult, [id number]. - Medication Reconciliation Form, Thank You Letter, Antibiotic Education, Prescription Opioid Use form. - Follow up: Private Physician; When: Upon discharge from the Emergency Department; Reason: Recheck today's complaints, Continuance of care, Re-evaluation by your physician. - Problem is new. - Symptoms have improved. Signatures: Dispatcher [employer] Serina Stoll RN RN sv Baxter, Heather, RN RN Matthieu Matthew MD MD tw4 Corrections: (The following items were deleted from the chart) 14:23 13:28 06/20/2020 13:28 Discharged to Home. Impression: Contusion of other part of head; sv Concussion without loss of consciousness; Abrasion of right hand. Condition is Stable. Forms are Medication Reconciliation Form, Thank You Letter, Antibiotic Education, Prescription Opioid Use. Follow up: Private Physician; When: Upon discharge from the Emergency Department; Reason: Recheck today's complaints, Continuance of care, Re-evaluation by your physician. Problem is new. Symptoms have improved. tw4
[2020-06-20] MEDS ORDERED: HEPARIN 500 UNIT/5 ML SYR IV ONE (14:18)
[2020-06-20 14:47] VITALS: TEMP 97.2
[2020-06-20 14:53] VITALS: BP 125/76; O2SAT 97
== END 2020-06-20 14:23 | disposition home or self-care (01) ==
LOC: ER 11:02
DX: S06.0X0A Concussion without loss of consciousness, initial encounter (principal); S60.511A Abrasion of right hand, initial encounter; W18.30XA Fall on same level, unspecified, initial encounter; Y93.89 Activity, other specified; Y92.9 Unspecified place or not applicable; Z88.8 Allergy status to other drugs, medicaments and biological substances; Z85.038 Personal history of other malignant neoplasm of large intestine; Z85.118 Personal history of other malignant neoplasm of bronchus and lung; Z85.528 Personal history of other malignant neoplasm of kidney
CPT/HCPCS: 85025; 80048; 36415; 70450; 99285; J1642; J7030; 93005; Q9967